=== PATIENT | male | born 1950 | race Caucasian/White ===

== ENCOUNTER → 2017-07-12 14:15 | Outpatient (CLI) | payer OTHER, SELFPAY | PROVIDERS: PCP Family Medicine; Visit Provider Family Medicine | DX: R97.20 Elevated prostate specific antigen [PSA] (principal) | CPT/HCPCS: 36415; 84153 ==

== ENCOUNTER → 2017-09-23 09:20 | Outpatient (CLI) | payer MEDICARE, OTHER, SELFPAY ==
[2017-09-23 10:54] LABS: BUN Creatinine Ratio 17.5 (6-22); Blood Urea Nitrogen 14 mg/dL (9-20); Estimated Glomerular Filt Rate > 60.0 mL/min (>60)
== END ==
PROVIDERS: PCP Family Medicine; Visit Provider Urology
DX: C61 Malignant neoplasm of prostate (principal)
CPT/HCPCS: 36415; 82565; 84520

== ENCOUNTER → 2017-09-28 09:49 | Outpatient (CLI) | payer MEDICARE, OTHER, SELFPAY ==
--- NOTE | 2017-09-28 | DI.CT.S_ITS ---
PROCEDURE: CT CHEST ABD PEL W CON INDICATIONS: PROSTATE CANCER TECHNIQUE: After the administration of intravenous contrast, 5 mm thick sections acquired from the lung apices to the symphysis. 5 mm coronal and sagittal reformats were performed, with additional 7 mm MIP reformats through the lungs. For radiation dose reduction, the following was used: automated exposure control, adjustment of mA and/or kV according to patient size. COMPARISON: None. FINDINGS: Image quality: Excellent. CHEST: Lungs and pleura: No acute airspace opacities. No pleural effusions or pneumothorax. Central and peripheral airways appear patent and normal in caliber. Mediastinum: Heart size is normal. No pericardial effusion. No mediastinal or hilar adenopathy by size criteria. Thoracic aorta and central pulmonary arteries are normal in size. Esophagus is normal in caliber. No hiatal hernia. Chest wall: No axillary or supraclavicular adenopathy by size criteria. Thyroid gland appears normal. ABDOMEN: Solid organs: Liver is normal in size and enhancement. Gallbladder appears normal. Biliary system is non dilated. Pancreas enhances normally. Spleen is normal in size and enhancement. No adrenal nodules. Kidneys demonstrate normal size and enhancement, without hydronephrosis. Peritoneum and bowel: Bowel loops demonstrate normal wall thickness and caliber. No free fluid or air. Nodes and vessels: No retroperitoneal or mesenteric adenopathy by size criteria. Aorta and inferior vena cava are normal in size. Miscellaneous: No ventral hernias. PELVIS: Genitourinary: Bladder wall thickness is normal. Miscellaneous: No inguinal hernias or adenopathy. Bones: No suspicious bony lesions. No vertebral body compression fractures. IMPRESSION: No evidence of metastatic disease related to the clinically reported prostate carcinoma. The prostate gland appears normal in size and morphology. Dictated by: Delmer Jacques M.D. on 09/28/2017 at 12:21 Approved by: Delmer Jacques M.D. on 09/28/2017 at 12:22
--- NOTE | 2017-09-28 | DI.NM.S_ITS ---
PROCEDURE: NM BONE SCAN WHOLE BODY RADIOPHARMACEUTICAL: 22.50 mCi Tc-99m MDP IV. INDICATIONS: PROSTATE CANCER TECHNIQUE: Delayed whole-body scintigrams were obtained approximately 3-4 hours after intravenous injection of radiotracer. Anterior and posterior views were acquired from vertex to feet. Additional left and right oblique views of the pelvis were obtained. COMPARISON: [facility], CT, CT CHEST ABD PEL W CON, 09/28/2017, 10:42. FINDINGS: Radiotracer uptake noted in the lower cervical spine shoulders bilaterally, the sternoclavicular joints bilaterally, the left costal sternal joint, the wrists bilaterally, the knees bilaterally and the left ankle compatible with osteoarthritis. There is a focus of increased radiotracer uptake in the posterior left 12th rib concerning for metastatic lesion. No abnormal soft tissue activity. Activity in the kidneys is normal and symmetric. IMPRESSION: Focus of increased T2 signal in the posterior left 12th rib concerning for a small solitary metastatic lesion. Dictated by: Lucia Granado MD, PhD on 09/28/2017 at 15:06 Approved by: Lucia Granado MD, PhD on 09/28/2017 at 15:14
== END ==
PROVIDERS: PCP Family Medicine; Visit Provider Urology
DX: C61 Malignant neoplasm of prostate (principal)
CPT/HCPCS: 71260; 74177; 78306; A9503; Q9967

== ENCOUNTER → 2017-10-05 09:10 | Oncology outpatient (ONC) | payer MEDICARE, OTHER, SELFPAY ==
[2017-10-05 09:46] VITALS: BP 133/82; PULSE 77; RESP 16; TEMP 36.5; O2SAT 94
--- NOTE | 2017-10-05 10:46 | P.CONONC_ITS ---
History of Present Illness - Data of Consult Consult date: 10/05/17 Requesting Physician: Dr. Sarah Herring Primary Care Provider: Kai Mckinney MD - Consult Narrative Reason for consult: Prostate cancer Narrative: Wilman Hardy is a 67 year old male who is referred for further evaluation of a newly diagnosed prostate cancer. He reports that he had a screening PSA that was 6.45 in February of 2017. On repeat in June it was 6.23 and he was referred to a urologist. He had a BM nodule felt on the left side of the prostate and underwent a biopsy on September 13. He was found to have adenocarcinoma involving the left side of the prostate. [place] score was 4+ 5 equals 9. He underwent a staging evaluation with a CT scan that did not show any evidence of adenopathy. He had a bone scan that showed some uptake in the left posterior 12th rib. The patient reports that he did have a history of trauma on the left side of his chest several years ago. He denies any urinary symptoms. He has had nocturia x1 for many years and this has been stable. He denies any difficulty emptying the bladder. He does have some frequent urination. He notes that he has not had sexual function for the last several years. He does have some chronic pain in the back for which he has had several surgeries. He also has been having some hip pain bilaterally over the last year too. He does exercise regularly and swim but has difficulty walking long distances particularly on hills. CC: Wilman Diaz MD Patient reports pain?: Yes - Pain Details Pain location: Back in hips Pain Frequency: Frequent Pain Description: Aching Pain referral/management: Self-management Home Medications and Allergies Home Medications Medication Instructions Recorded Confirmed Type cyclobenzaprine 10 mg PO TID PRN #90 tab 03/22/17 10/05/17 Rx hydrocodone-acetaminophen 1 tab PO Q DAY PRN PRN #10 tab 03/22/17 10/05/17 Rx lisinopril 10 mg PO BID #180 tab 03/22/17 10/05/17 Rx aspirin 81 mg PO DAILY 10/05/17 10/05/17 History calcium carbonate [Calcium 500] 500 mg PO QAM 10/05/17 10/05/17 History multivitamin 1 tab PO DAILY 10/05/17 10/05/17 History sildenafil (antihypertensive) 20 mg PO QDAYP PRN 10/05/17 10/05/17 History Allergies Allergy/AdvReac Type Severity Reaction Status Date / Time No Known Drug Allergies Allergy Verified 10/05/17 09:36 Medical History - Medical, Surgical, Family History Medical History: Medical History (Last Reviewed 10/05/17 @ 10:46 by Wilman Diaz MD) Hip pain Onset Date: 2016 Chronic back pain Onset Date: 1989 Hearing loss Onset Date: 2011 Herpes Onset Date: 1975 Hypertension Onset Date: 1997 Recurrent sinusitis Onset Date: Sleep apnea Onset Date: 2011 Surgical History: Surgical History (Last Reviewed 10/05/17 @ 10:46 by Wilman Diaz MD) History of back surgery Onset Date: 1994 Hx of laminectomy Onset Date: 2007 Family History: Family History Brother Age: 67 Hypertension High cholesterol Brother Age: 62 Hypertension Father Cancer Mother Multiple sclerosis - Social History Smoking Status: Former smoker Alcohol Intake: current Alcohol Intake Frequency: 0-2 drinks per day Household Members: spouse service: Yes (I does experience with [employer].) Current Occupational Status: retired Review of Systems All systems PM: reviewed and no additional remarkable complaints except as stated (He does use hearing aids. He does have chronic hip and back pain as described above. He has been using ibuprofen and rare hydrocodone or muscle relaxant.) Exam Vital signs: Last Vital Signs Temp 97.7 F 10/05/17 09:46 Pulse 77 10/05/17 09:46 Resp 16 10/05/17 09:46 BP 133/82 H 10/05/17 09:46 Pulse Ox 94 10/05/17 09:46 - Constitutional positive no acute distress, positive obese - Routine HEENT Exam Head: Present: normocephalic, atraumatic Eye: Present: EOMI, PERRL. Absent: conjunctival icterus, scleral injection ENT: Present: mucous membranes moist, dentition normal, external ear normal - Routine Neck Exam Present: supple. Absent: lymphadenopathy, thyromegaly - Routine Chest/Breast/Axilla Exam Chest wall exam standard: Absent: tenderness Axillae: Absent: lymphadenopathy - Routine Respiratory Exam Present: Clear to auscultation bilaterally. Absent: rales, wheezes - Routine Cardiovascular Exam Present: RRR, S1, S2. Absent: murmur - Routine Abdominal Exam Present: soft, normoactive bowel sounds. Absent: tenderness, organomegaly, mass Palpation/Percussion: Absent: hepatomegaly, splenomegaly - Routine Extremities Exam Present: pulses intact. Absent: cyanosis, clubbing, edema - Routine Back/Spine Exam Back/Spine: Absent: CVA tenderness, paraspinal tenderness, vertebral tenderness - Routine Skin Exam Present: intact, dry Comments: He does have some seborrheic keratoses on the shoulders. - Routine Neurological Exam Present: alert, oriented X3 He does use hearing aids. - Routine Psychiatric Exam Present: normal affect, normal thought process Results - Imaging CT scan - abdomen: image reviewed Additional studies: A bone scan was reviewed Assessment and Plan (1) Prostate cancer Problem details: Newly diagnosed with [place] 9 prostate cancer with a PSA of 6.2. His bone scan suggest some uptake in the left posterior 12th rib but he does have a history of trauma to that area and I think that this is unlikely to represent true metastasis. His urologist would favor a nonsurgical approach for definitive therapy according to her note. I described hormone therapy with Lupron and Casodex. This is generally given for several months prior to definitive radiation therapy. The Lupron is given as an injection every 3 months. Casodex is taken orally daily. I explained that clinical trials have looked at varying lengths of therapy for hormone suppression in locally advanced disease. Generally, longer therapy is associated with a better outcome and that would usually recommend treatment for 2-3 years. Side effects of hormone therapy including hot flashes and night sweats risk for loss of muscle mass and increased body found, risk for osteopenia or osteoporosis, risk for increased cardiovascular events reviewed. A few patients can also developed some breast swelling or tenderness on Casodex. He already has had loss of sexual function to this would not be expected to change. He had questions regarding prognosis for prostate cancer. High risk prostate cancer treated with hormone therapy and radiation therapy had shown 5 year mortality rates of about 10% with about 25% risk of distant metastasis. He also had questions regarding the timing of therapy. He reports that his daughter is currently . He would prefer to delay therapy until after the of a grandchild. I explained that once she was on hormone therapy, some delay in starting of radiation therapy would be expected. This would generally be in the range of several months. He also had questions regarding cost of therapy. He will meet with the director social service regarding that. He had questions regarding role of a 2nd opinion and I did offer make a referral but he would prefer to wait. We will make referral to Radiation Oncology. I did give him a drug information regarding Lupron and Casodex. He will return to clinic here after his radiation therapy appointment and hopefully at that time will be able to make a more definitive treatment plan. Current visit: Yes Status: Acute
--- NOTE | 2017-10-05 13:12 | ONC.NAV ---
Description: New Pt Intro Activity: Met with pt to introduce myself as the Pt Aakash/LICENSED SALES ASSISTANT, offer services card, and assist with pt's questions re: insurance and financial concerns. Pt was recently diagnosed with advanced prostate cancer. He states that he moved to [place] about 1-year ago, is and has good social/emotional support. His concerns today centered around care team communication and whether or not he will have a large out of pocket cost for his medications and care. LICENSED SALES ASSISTANT explained that the Oncologist will now be the main provider overseeing his care, and will communicate with all other involved providers as part of continuity of care (i.e, radiation oncology). He had questions as to whether his insurance policies would cover most of the costs, and how we would find this out. LICENSED SALES ASSISTANT agreed to call his insurance and clarify his plan type. *Called pt's [employer] insurance, and determined it to be a supplemental plan to his straight Medicare. Called pt to relay this information, and that he should not have any out of pocket for his care. He had no further questions at this time. Plan: Pt will f/u with [facility] after he has been seen by radiation oncology.
== END ==
LOC: ONC 09:21
PROVIDERS: PCP Family Medicine
DX: C61 Malignant neoplasm of prostate (principal); Z87.891 Personal history of nicotine dependence
CPT/HCPCS: 99205; 99215

== ENCOUNTER → 2018-02-02 14:46 | Outpatient (CLI) | payer MEDICARE, OTHER, SELFPAY ==
[2018-02-02 15:40] LABS: Alanine Aminotransferase 62 IU/L (21-72); Albumin 4.3 g/dL (3.5-5.0); Albumin Globulin Ratio 1.8 (1.0-2.8); Alkaline Phosphatase 65 U/L (38-126); Aspartate Aminotransferase 39 IU/L (17-59); Bilirubin Total 0.4 mg/dL (0.2-1.3); Bilirubin Unconjugated 0.3 mg/dL (0.0-1.1); Globulin 2.4 g/dL (1.7-4.1); HEMOLYSIS < 15 (0-50); Total Protein 6.7 g/dL (6.3-8.2)
[2018-02-02 15:53] LABS: Vitamin D 25 Hydroxy (D3) 26.4 ng/mL (30.0-100.0)
== END ==
PROVIDERS: PCP Student in an Organized Health Care Education/Training Program; Visit Provider Student in an Organized Health Care Education/Training Program
DX: E55.9 Vitamin D deficiency, unspecified (principal); C61 Malignant neoplasm of prostate
CPT/HCPCS: 36415; 80076; 82306

== ENCOUNTER → 2018-05-04 12:18 | Outpatient (CLI) | payer MEDICARE, OTHER, SELFPAY ==
[2018-05-04 16:46] LABS: Prostate Specific Antigen 0.737 ng/mL (0.10-4.00)
== END ==
PROVIDERS: PCP Student in an Organized Health Care Education/Training Program; Visit Provider Urology
DX: C61 Malignant neoplasm of prostate (principal)
CPT/HCPCS: 36415; 84153

== ENCOUNTER → 2018-05-31 08:54 | Outpatient (CLI) | payer MEDICARE, OTHER, SELFPAY ==
--- NOTE | 2018-05-31 08:56 | DI.MRI.S_ITS ---
PROCEDURE: MR LUMBAR SPINE WO CON INDICATIONS: Low back pain with lower extremity weakness TECHNIQUE: Noncontrast sagittal T1 spin echo and T2 fast echo, sagittal STIR, axial T1 and T2 fast spin echo through the lumbar spine. In cases with scoliosis, additional coronal T2 fast spin echo may be performed. COMPARISON: Outside Facility, RG, MRI L-SPINE W/WO CONTRAST, 08/30/2014, 15:22. Outside Facility, [facility], MRI L-SPINE W/O CONTRAST, 11/17/2010, 12:49. FINDINGS: Image quality: Excellent. Alignment and Curvature: Straightening of the normal lumbar lordosis Bone Marrow: Post surgical changes related to prior posterior decompression at the L4 level. Multilevel degenerative endplate sclerosis and spurring. Diffuse facet arthropathy. Chronic osseous fusion of the L4 and L5 vertebral bodies. Possible partial chronic osseous fusion of the L5-S1 vertebral bodies as well. Prominent marrow fat signal intensity is seen in the sacrum Spinal Cord: Conus medullaris terminates at the L1-L2 level. Visualized cord demonstrates normal signal and size. Paraspinous Soft Tissues: No paravertebral masses. At T12-L1: Broad-based posterior disc bulge mild facet arthropathy in addition a dorsal epidural lipomatosis. Moderate narrowing of the lateral recesses although symmetric appearance, and associated compression of both descending L1 nerve roots. No definite interval change. Bilateral foraminal narrowing, grossly unchanged L1-L2: Broad-based posterior disc bulge bilateral facet arthropathy. Dorsal epidural lipomatosis. There is mild canal narrowing and compression of the cauda equina. Partial effacement of both lateral recesses, with mild compression of the descending nerve roots. Mild left and right foraminal narrowing, unchanged L2-L3: Broad-based posterior disc bulge and bilateral facet arthropathy, mild asymmetric, right greater than left. There is dorsal epidural lipomatosis and mild canal narrowing. Asymmetric narrowing of the right lateral recess with possible mild compression of the descending nerve root. Mild left and moderate foraminal narrowing. L3-L4: Broad-based posterior disc bulge bilateral facet arthropathy. No high-grade canal stenosis. Asymmetric mild partial effacement of the right lateral recess with possible compression of the descending nerve root however grossly unchanged appearance. Moderate left and right foraminal stenosis with possible mild compression of both nerve roots. The appearance is unchanged. L4-L5: No definite canal stenosis. No lateral recess narrowing. Mild bilateral foraminal narrowing L5-S1: No high-grade canal stenosis. Broad-based posterior disc bulge bilateral facet arthropathy. Lateral recesses appear grossly patent. Moderate narrowing of the right neural foramen with associated compression of the exiting nerve root. There is also severe left foraminal stenosis with associated compression of the nerve root. No interval change IMPRESSION: Overall, no interval change since 08/30/14 with postsurgical sequela related to posterior decompression at the L4 level. Dictated by: Adolfo James M.D. on 05/31/2018 at 10:54 Approved by: Adolfo James M.D. on 05/31/2018 at 11:06
== END ==
PROVIDERS: PCP Student in an Organized Health Care Education/Training Program; Visit Provider Student in an Organized Health Care Education/Training Program
DX: M47.816 Spondylosis without myelopathy or radiculopathy, lumbar region (principal); M47.817 Spondylosis without myelopathy or radiculopathy, lumbosacral region; M51.26 Other intervertebral disc displacement, lumbar region; M51.27 Other intervertebral disc displacement, lumbosacral region; M48.061 Spinal stenosis, lumbar region without neurogenic claudication; M48.07 Spinal stenosis, lumbosacral region; G89.29 Other chronic pain; R29.898 Other symptoms and signs involving the musculoskeletal system
CPT/HCPCS: 72148

== ENCOUNTER 2018-08-16 10:15 | Outpatient (RCR) | payer MEDICARE, OTHER, SELFPAY ==
--- NOTE | 2018-06-22 14:55 | PT.OTN ---
Current Diagnoses Other chronic pain (06/22/18) Low back pain (06/22/18) Physical Therapy Treatment Note PT-OP-A Visit Information Start: 06/22/18 08:52 Freq: Status: Active Protocol: Document 06/22/18 08:53 BS (Rec: 06/22/18 09:02 BS [email or web address]) Out-Patient Physical Therapy Visit Information Visit Information Visit Type Initial Evaluation Visit Start Time 08:15 Visit Stop Time 08:50 Total Visit Minutes 35 Visit Number 1 Number of SPRINKLER WORKER Visits 0 Evaluation Information Evaluation Date 06/22/18 PT-OP-B Current Condition Start: 06/22/18 08:52 Freq: Status: Active Protocol: Document 06/22/18 08:53 BS (Rec: 06/22/18 09:02 BS [email or web address]) Current Condition History of Current Condition Onset Date chronic Current Complaints Constant LBP History of Current Condition Pt complains of chronic and constant low back pain that increases with lifting heavy objects, prolonged sitting/ standing, exercise, mopping, vacuuming, and especially with walking uphill. Pt denies radicular symptoms, but reports he has had sciatica in the past. He states that he has had low back pain for 30+ years and that he has has arthritis, stenosis, and a herniated disc. Pt has seen many providers over the years to manage his pain, including massage therapy, physical therapy, acupuncture, chiropractice care, and he has had a lower lumbar fusion. Pt reports that he enjoys walking but that his low back pain significantly increases after about 2 blocks and that he notices more weakness in his legs. Pt states he is currently being treated for aggressive prostate cancer, which has affected his B LE strength. His plan to manage low back pain at this point is through combination of physical therapy aquatics, medicare compliance auditor, and acupuncture. Prior Treatments and Tests massage therapy, acupuncture, physical therapy, chiropractic . lumbar spine MRI: foraminal stenosis L1-L5, posterior disc herniation L2-3. Future Testing and Treatments Planned Pt plans to manage low back pain at this point through combination of physical therapy aquatics, medicare compliance auditor, and acupuncture. He prefers not to be land based exercise. Treatment Goals Patient/Caregiver Goals figure out a program I can do in the pool to strengthen my core, legs, and work on flexibility Prior Functional Status Baseline Function- ADL's Independent Baseline Function- Mobility Independent Baseline Function- Gait Independent without AD Baseline Function- Work/School Pt is retired, worked a desk job for many years. Baseline Function- Recreation/Hobbies Independent Baseline Function- Other Independent Current Functional Impairments (Reported) Functional Limitations- ADL's Low back pain with ifting objects, mopping, vacuuming, sweeping, prolonged standing/ sitting, and walking. Functional Limitations- Mobility/Gait Pt reports he used to be able to walk for an hour but is sometimes limited to 2 blocks now due to increased LBP. Functional Limitations- Recreation/ Pt enjoys go on walks and Hobbies exercising in the pool, these activities have been limited due to LBP. Personal Factors Other Personal Factors That May Effect chronic LBP, lumbar fusion, Therapy/Recovery arthritis PT-OP-C Subjective Start: 06/22/18 08:52 Freq: Status: Active Protocol: Document 06/22/18 08:53 BS (Rec: 06/22/18 12:18 BS [email or web address]) OP-PT Subjective Patient Comments Patient Comments I do not want to do land based physical therapy, I want to get in the pool and refine my current exercise plan to make sure I am doing things correctly Patient Questionnaires Oswestry Low Back Index Oswestry Score 20 Oswestry Impairment 40 to 59% Impaired (Score 40- 59) PT-OP-F Manual Assessment Start: 06/22/18 13:29 Freq: Status: Active Protocol: Document 06/22/18 08:53 BS (Rec: 06/22/18 13:30 BS [email or web address]) Manual Assessments Soft Tissue Assessment Soft Tissue Mobility Assessment Hypertonicity to B lumbar paraspinals, no tenderenss noted Joint Mobility Assessment Joint Mobility Assessment Stiffness and hypomibilty from L1-L5 with central and unilateral PAs. Pt denied pain with joint mobility assessment. PT-OP-G Mobility & Gait Start: 06/22/18 08:52 Freq: Status: Active Protocol: Document 06/22/18 08:53 BS (Rec: 06/22/18 13:28 BS [email or web address]) OP Mobility Evaluation Bed Mobility Rolling Independent Supine to and from Sit Independent, use of B UEs Transfers Sit to Stand Independent, use of B UEs to push up from chair OP Gait Assessment Gait Gait Assistance Required: Independent Able to Maintain Weight Bearing Status Yes During Gait Gait Deviations General Gait Pattern Within Normal Limits Flexed Trunk Comments Gait Comments slight trunk flexion with ambulation in clinic. PT-OP-J Posture/Palpation/Skin Start: 06/22/18 08:52 Freq: Status: Active Protocol: Document 06/22/18 08:53 BS (Rec: 06/22/18 13:28 BS [email or web address]) Posture Evaluation Position Sitting Evaluation View Posterior Head/C-Spine Posture Forward Head Shoulder Posture (R) Rounded (R) Forward Comments Posture Comments stands with slight trunk flexion. Palpation Assessment Location One Palpation Location Lumbar Parapsinals Palpation Findings Soft Tissue Tightness Palpation Details Hypertonicity and tightness with palpation to B paraspinals, no tenderness noted. PT-OP-K Range of Motion Start: 06/22/18 08:52 Freq: Status: Active Protocol: Document 06/22/18 08:53 BS (Rec: 06/22/18 12:18 BS [email or web address]) Lumbar Spine Range of Motion Lumbar Spine Active Testing Position Standing Flexion 60 Extension 20 Comments Moderatly limited in bilateral rotation and sidebending. Pt reports stiffness with all lumbar AROM and some discomfort in low back. Hip Goniometric Range of Motion Hip Measured in Degrees Right Passive Hip ROM WFL No Testing Position Supine Flexion w/Knee Flexed 85 Straight Leg Raise 75 Left Passive Hip ROM WFL No Testing Position Supine Flexion w/Knee Flexed 88 Straight Leg Raise 60 Hip ROM Limitations Comments Low back pain reproduced with PROM hip flexion bilaterally. PT-OP-L Special Tests Start: 06/22/18 08:52 Freq: Status: Active Protocol: Document 06/22/18 08:53 BS (Rec: 06/22/18 12:18 BS [email or web address]) Special Tests Lumbar Spine Special Tests Slump Test Results Negative Straight Leg Raise Test Results + Prone Knee Flexion Test Results + Comments I can feel my vertebrae moving on eachother PT-OP-M Strength Start: 06/22/18 08:52 Freq: Status: Active Protocol: Document 06/22/18 08:53 BS (Rec: 06/22/18 12:18 BS [email or web address]) Hip Strength Hip Manual Muscle Testing Right Flexion (L2) 4+ Good+ Extension (S1) 4 Good Abduction 5 Normal External Rotation 5 Normal Internal Rotation 5 Normal Comments No pain during MMT Left Flexion (L2) 4+ Good+ Extension (S1) 4 Good Abduction 5 Normal External Rotation 5 Normal Internal Rotation 5 Normal Comments No pain during MMT Knee Strength Knee Manual Muscle Testing Right Flexion (S2) 5 Normal Extension (L3) 5 Normal Comments No pain during MMT Left Flexion (S2) 5 Normal Extension (L3) 5 Normal Comments No pain during MMT Ankle/Foot Strength Ankle and Foot Manual Muscle Testing Right Dorsiflexion (L4) 5 Normal Plantarflexion (S1) 5 Normal Comments No pain during MMT Left Dorsiflexion (L4) 5 Normal Plantarflexion (S1) 5 Normal Comments No pain during MMT PT-OP-T Assessment and Plan Start: 06/22/18 08:52 Freq: Status: Active Protocol: Document 06/22/18 08:53 BS (Rec: 06/22/18 12:18 BS [email or web address]) Physical Therapy Assessment Rehab Potential Rehabilitation Potential Fair Evaluation Complexity Number of Personal Factors/Comorbidities 1-2 Number of Body Systems Impaired 1-2 Clinical Presentation at Evaluation Stable Impairments Impairments Activity Tolerance Functional Activities Functional Mobility Pain ROM Soft Tissue Mobility Strength Other Concerns Barriers to Rehabilitation chronic LBP, arthritis, aggressive form of prostate cancer per pt. Goals Two Impairment weakness Short Term Goal (STG) Pt to report reduction in pain intensity with less than 3/10 so that he is able to complete activities of daily living. STG Duration 6 weeks Slab Worker Goal (LTG) Bilateral hip extension and flexion to improve to at least 4+/5 to increase pt's ability to perform ADLs without limitations due to weakness. LTG Duration 10-12 weeks One Impairment strength Short Term Goal (STG) Pt to be able consistently walk greater than 2 blocks before experiencing low back pain or weakness in bilateral low extremities. STG Duration 8 weeks Assisted Goal (LTG) Pt to be independent with an aquatic program for lumbar stabilization and B LE strengthening and flexibility so that he can continue to engage in recreational exercise that does not exacerbate his chronic low back pain. LTG Duration 10-12 weeks Assessment Summary Assessment Wilman is a 67 year old male who presents with chronic and constant low back pain that has limited his ability to perform his usual activities of daily living. He reports increase in pain with bending, lifting, mopping, vacuuming, prolonged sitting/standing, and walking. Pt has had a previous lumbar fusion and decompression surgery. Wilman is not open to land based therapy and thus aquatic therapy will be used to strengthen his lower extremities and lumbar stabilizers as well as improve his flexibility. Pt benefits from skilled physical therapy as described above to reduce low back pain and promote independence with a safe exercise program for continued management of his symptoms following discharge. Physical Therapy Plan Frequency and Duration Frequency of Treatment 2-3x/week Duration of Treatment 10-12 weeks Plan of Care Start Date 06/22/18 Plan of Care End Date 09/14/18 Therapeutic Interventions Therapeutic Interventions Aquatic Therapy Home Exercise Program Joint Mobilizations Manual Therapy Patient/Caregiver Education Soft Tissue Mobilization Taping Therapeutic Activities Therapeutic Exercises Next Visit Focus/Plan Next Note Type Treatment Note Next Visit Plan Begin aquatic therapy for lumbar stabilization and B LE strenthening, flexibility.
--- NOTE | 2018-06-22 14:57 | PT.OPPOC ---
Current Diagnoses Other chronic pain (06/22/18) Low back pain (06/22/18) Provider Visit Care Team Role Provider Type Dc Summers MD Attending Provider Physician Primary Care Provider Specialty: Internal Medicine Address: [address] [place] [address], [id number] Email: Plan Of Care PT-OP-T Assessment and Plan Start: 06/22/18 08:52 Freq: Status: Active Protocol: Document 06/22/18 08:53 BS (Rec: 06/22/18 12:18 BS [email or web address]) Physical Therapy Assessment Rehab Potential Rehabilitation Potential Fair Evaluation Complexity Number of Personal Factors/Comorbidities 1-2 Number of Body Systems Impaired 1-2 Clinical Presentation at Evaluation Stable Impairments Impairments Activity Tolerance Functional Activities Functional Mobility Pain ROM Soft Tissue Mobility Strength Other Concerns Barriers to Rehabilitation chronic LBP, arthritis, aggressive form of prostate cancer per pt. Goals Two Impairment weakness Short Term Goal (STG) Pt to report reduction in pain intensity with less than 3/10 so that he is able to complete activities of daily living. STG Duration 6 weeks Service Station Console Operator Goal (LTG) Bilateral hip extension and flexion to improve to at least 4+/5 to increase pt's ability to perform ADLs without limitations due to weakness. LTG Duration 10-12 weeks One Impairment strength Short Term Goal (STG) Pt to be able consistently walk greater than 2 blocks before experiencing low back pain or weakness in bilateral low extremities. STG Duration 8 weeks Service Station Console Operator Goal (LTG) Pt to be independent with an aquatic program for lumbar stabilization and B LE strengthening and flexibility so that he can continue to engage in recreational exercise that does not exacerbate his chronic low back pain. LTG Duration 10-12 weeks Assessment Summary Assessment Wilman is a 67 year old male who presents with chronic and constant low back pain that has limited his ability to perform his usual activities of daily living. He reports increase in pain with bending, lifting, mopping, vacuuming, prolonged sitting/standing, and walking. Pt has had a previous lumbar fusion and decompression surgery. Wilman is not open to land based therapy and thus aquatic therapy will be used to strengthen his lower extremities and lumbar stabilizers as well as improve his flexibility. Pt benefits from skilled physical therapy as described above to reduce low back pain and promote independence with a safe exercise program for continued management of his symptoms following discharge. Physical Therapy Plan Frequency and Duration Frequency of Treatment 2-3x/week Duration of Treatment 10-12 weeks Plan of Care Start Date 06/22/18 Plan of Care End Date 09/14/18 Therapeutic Interventions Therapeutic Interventions Aquatic Therapy Home Exercise Program Joint Mobilizations Manual Therapy Patient/Caregiver Education Soft Tissue Mobilization Taping Therapeutic Activities Therapeutic Exercises Next Visit Focus/Plan Next Note Type Treatment Note Next Visit Plan Begin aquatic therapy for lumbar stabilization and B LE strenthening, flexibility. Plan of Care Dates Plan of Care Start Date 06/22/18 Plan of Care End Date 09/14/18 Please Sign and Return: I have reviewed this Plan of Care and certify that the skilled therapy services above are required to meet the patient?s needs. Physician Signature Date Printed Name and Credentials Clinical Instructor Signature Printed Name and Credentials
--- NOTE | 2018-06-26 17:30 | PT.OTN ---
Current Diagnoses Other chronic pain (06/26/18) Low back pain (06/26/18) Physical Therapy Treatment Note PT-OP-A Visit Information Start: 06/22/18 08:52 Freq: Status: Active Protocol: Document 06/26/18 17:21 SAK (Rec: 06/26/18 17:30 SAK [id number]) Out-Patient Physical Therapy Visit Information Visit Information Visit Type Aquatic Treatment Note Visit Start Time 13:15 Visit Stop Time 14:00 Total Visit Minutes 45 Visit Number 2 Number of CARDIOLOGY PHYSICIAN ASSISTANT Visits 0 Evaluation Information Evaluation Date 06/22/18 PT-OP-B Current Condition Start: 06/22/18 08:52 Freq: Status: Active Protocol: Document 06/22/18 08:53 BS (Rec: 06/22/18 09:02 BS [email or web address]) Current Condition History of Current Condition Onset Date chronic Current Complaints Constant LBP History of Current Condition Pt complains of chronic and constant low back pain that increases with lifting heavy objects, prolonged sitting/ standing, exercise, mopping, vacuuming, and especially with walking uphill. Pt denies radicular symptoms, but reports he has had sciatica in the past. He states that he has had low back pain for 30+ years and that he has has arthritis, stenosis, and a herniated disc. Pt has seen many providers over the years to manage his pain, including massage therapy, physical therapy, acupuncture, chiropractice care, and he has had a lower lumbar fusion. Pt reports that he enjoys walking but that his low back pain significantly increases after about 2 blocks and that he notices more weakness in his legs. Pt states he is currently being treated for aggressive prostate cancer, which has affected his B LE strength. His plan to manage low back pain at this point is through combination of physical therapy aquatics, child care lead teacher, and acupuncture. Prior Treatments and Tests massage therapy, acupuncture, physical therapy, chiropractic . lumbar spine MRI: foraminal stenosis L1-L5, posterior disc herniation L2-3. Future Testing and Treatments Planned Pt plans to manage low back pain at this point through combination of physical therapy aquatics, child care lead teacher, and acupuncture. He prefers not to be land based exercise. Treatment Goals Patient/Caregiver Goals figure out a program I can do in the pool to strengthen my core, legs, and work on flexibility Prior Functional Status Baseline Function- ADL's Independent Baseline Function- Mobility Independent Baseline Function- Gait Independent without AD Baseline Function- Work/School Pt is retired, worked a desk job for many years. Baseline Function- Recreation/Hobbies Independent Baseline Function- Other Independent Current Functional Impairments (Reported) Functional Limitations- ADL's Low back pain with ifting objects, mopping, vacuuming, sweeping, prolonged standing/ sitting, and walking. Functional Limitations- Mobility/Gait Pt reports he used to be able to walk for an hour but is sometimes limited to 2 blocks now due to increased LBP. Functional Limitations- Recreation/ Pt enjoys go on walks and Hobbies exercising in the pool, these activities have been limited due to LBP. Personal Factors Other Personal Factors That May Effect chronic LBP, lumbar fusion, Therapy/Recovery arthritis PT-OP-C Subjective Start: 06/22/18 08:52 Freq: Status: Active Protocol: Document 06/26/18 17:21 SAK (Rec: 06/26/18 17:30 SAK [id number]) OP-PT Subjective Patient Comments Patient Comments Patient states he is receptive to education regarding aquatic exercise and ways he may need to modify the exercises he is currently doing in the pool for more benefit. PT-OP-F Manual Assessment Start: 06/22/18 13:29 Freq: Status: Active Protocol: Document 06/22/18 08:53 BS (Rec: 06/22/18 13:30 BS [email or web address]) Manual Assessments Soft Tissue Assessment Soft Tissue Mobility Assessment Hypertonicity to B lumbar paraspinals, no tenderenss noted Joint Mobility Assessment Joint Mobility Assessment Stiffness and hypomibilty from L1-L5 with central and unilateral PAs. Pt denied pain with joint mobility assessment. PT-OP-G Mobility & Gait Start: 06/22/18 08:52 Freq: Status: Active Protocol: Document 06/22/18 08:53 BS (Rec: 06/22/18 13:28 BS [email or web address]) OP Mobility Evaluation Bed Mobility Rolling Independent Supine to and from Sit Independent, use of B UEs Transfers Sit to Stand Independent, use of B UEs to push up from chair OP Gait Assessment Gait Gait Assistance Required: Independent Able to Maintain Weight Bearing Status Yes During Gait Gait Deviations General Gait Pattern Within Normal Limits Flexed Trunk Comments Gait Comments slight trunk flexion with ambulation in clinic. PT-OP-J Posture/Palpation/Skin Start: 06/22/18 08:52 Freq: Status: Active Protocol: Document 06/22/18 08:53 BS (Rec: 06/22/18 13:28 BS [email or web address]) Posture Evaluation Position Sitting Evaluation View Posterior Head/C-Spine Posture Forward Head Shoulder Posture (R) Rounded (R) Forward Comments Posture Comments stands with slight trunk flexion. Palpation Assessment Location One Palpation Location Lumbar Parapsinals Palpation Findings Soft Tissue Tightness Palpation Details Hypertonicity and tightness with palpation to B paraspinals, no tenderness noted. PT-OP-K Range of Motion Start: 06/22/18 08:52 Freq: Status: Active Protocol: Document 06/22/18 08:53 BS (Rec: 06/22/18 12:18 BS [email or web address]) Lumbar Spine Range of Motion Lumbar Spine Active Testing Position Standing Flexion 60 Extension 20 Comments Moderatly limited in bilateral rotation and sidebending. Pt reports stiffness with all lumbar AROM and some discomfort in low back. Hip Goniometric Range of Motion Hip Measured in Degrees Right Passive Hip ROM WFL No Testing Position Supine Flexion w/Knee Flexed 85 Straight Leg Raise 75 Left Passive Hip ROM WFL No Testing Position Supine Flexion w/Knee Flexed 88 Straight Leg Raise 60 Hip ROM Limitations Comments Low back pain reproduced with PROM hip flexion bilaterally. PT-OP-L Special Tests Start: 06/22/18 08:52 Freq: Status: Active Protocol: Document 06/22/18 08:53 BS (Rec: 06/22/18 12:18 BS [email or web address]) Special Tests Lumbar Spine Special Tests Slump Test Results Negative Straight Leg Raise Test Results + Prone Knee Flexion Test Results + Comments I can feel my vertebrae moving on eachother PT-OP-M Strength Start: 06/22/18 08:52 Freq: Status: Active Protocol: Document 06/22/18 08:53 BS (Rec: 06/22/18 12:18 BS [email or web address]) Hip Strength Hip Manual Muscle Testing Right Flexion (L2) 4+ Good+ Extension (S1) 4 Good Abduction 5 Normal External Rotation 5 Normal Internal Rotation 5 Normal Comments No pain during MMT Left Flexion (L2) 4+ Good+ Extension (S1) 4 Good Abduction 5 Normal External Rotation 5 Normal Internal Rotation 5 Normal Comments No pain during MMT Knee Strength Knee Manual Muscle Testing Right Flexion (S2) 5 Normal Extension (L3) 5 Normal Comments No pain during MMT Left Flexion (S2) 5 Normal Extension (L3) 5 Normal Comments No pain during MMT Ankle/Foot Strength Ankle and Foot Manual Muscle Testing Right Dorsiflexion (L4) 5 Normal Plantarflexion (S1) 5 Normal Comments No pain during MMT Left Dorsiflexion (L4) 5 Normal Plantarflexion (S1) 5 Normal Comments No pain during MMT PT-OP-S Aquatic Treatment Start: 06/26/18 17:21 Freq: Status: Active Protocol: Document 06/26/18 17:21 [facility] (Rec: 06/26/18 17:30 [facility] [id number]) Aquatics Treatment Pool Entry/Exit Pool Entry/Exit Method Stairs Assistance Independent Lower Extremity Stretches SKTC Reps/Duration 2x hamstring, IT band, adductors, quads, hip flex Equipment Small Noodle Reps/Duration 2x ea Upper Extremity Exercises UE pull downs Body Position Standing Water Level Chest Level Equipment large barbells Reps/Duration 10x [place] Activities [place] Activities Bicycle Bicycle Backwards [place] Running Hip Abduction/Adduction Sit Kicks Other Activities bicycle with barbells held submerged at sides Deep water DLS: trevor and unil pull downs, lateral pendulums, front/back pendulums Equipment large barbells Duration 30 min Comments included 8' of 15:30 intervals of 2 min ea run, short/quick x-country, ab/ad, sit kicks PT-OP-T Assessment and Plan Start: 06/22/18 08:52 Freq: Status: Active Protocol: Document 06/26/18 17:21 [facility] (Rec: 06/26/18 17:30 [facility] [id number]) Physical Therapy Assessment Impairments Impairments Activity Tolerance Functional Activities Functional Mobility Pain ROM Soft Tissue Mobility Strength Other Concerns Barriers to Rehabilitation chronic LBP, arthritis, aggressive form of prostate cancer per pt. Goals Two Impairment weakness Short Term Goal (STG) Pt to report reduction in pain intensity with less than 3/10 so that he is able to complete activities of daily living. STG Duration 6 weeks Blocker Automatic Goal (LTG) Bilateral hip extension and flexion to improve to at least 4+/5 to increase pt's ability to perform ADLs without limitations due to weakness. LTG Duration 10-12 weeks One Impairment strength Short Term Goal (STG) Pt to be able consistently walk greater than 2 blocks before experiencing low back pain or weakness in bilateral low extremities. STG Duration 8 weeks Prison Goal (LTG) Pt to be independent with an aquatic program for lumbar stabilization and B LE strengthening and flexibility so that he can continue to engage in recreational exercise that does not exacerbate his chronic low back pain. LTG Duration 10-12 weeks Assessment Summary Assessment Patient required moderate cues for postural alignment and core stabilization with all aquatic exercises today. Feel he will benefit highly from aquatic physical therapy. Denied increase in pain except with trial aquatic plank Physical Therapy Plan Frequency and Duration Frequency of Treatment 2-3x/week Duration of Treatment 10-12 weeks Plan of Care Start Date 06/22/18 Plan of Care End Date 09/14/18 Therapeutic Interventions Therapeutic Interventions Aquatic Therapy Home Exercise Program Joint Mobilizations Manual Therapy Patient/Caregiver Education Soft Tissue Mobilization Taping Therapeutic Activities Therapeutic Exercises Next Visit Focus/Plan Next Note Type Treatment Note Next Visit Plan Evaluate response to today's aquatic physical therapy session and progress as indicated.
--- NOTE | 2018-07-07 13:50 | PT.OTN ---
Current Diagnoses Other chronic pain (07/07/18) Low back pain (07/07/18) Physical Therapy Treatment Note PT-OP-A Visit Information Start: 06/22/18 08:52 Freq: Status: Active Protocol: Document 07/07/18 10:15 LJ (Rec: 07/07/18 13:50 LJ [id number]) Out-Patient Physical Therapy Visit Information Visit Information Visit Type Aquatic Treatment Note Visit Start Time 10:15 Visit Stop Time 11:00 Total Visit Minutes 45 Visit Number 3 Number of CROWNING HAMMER OPERATOR Visits 1 PT-OP-B Current Condition Start: 06/22/18 08:52 Freq: Status: Active Protocol: Document 06/22/18 08:53 BS (Rec: 06/22/18 09:02 BS [email or web address]) Current Condition History of Current Condition Onset Date chronic Current Complaints Constant LBP History of Current Condition Pt complains of chronic and constant low back pain that increases with lifting heavy objects, prolonged sitting/ standing, exercise, mopping, vacuuming, and especially with walking uphill. Pt denies radicular symptoms, but reports he has had sciatica in the past. He states that he has had low back pain for 30+ years and that he has has arthritis, stenosis, and a herniated disc. Pt has seen many providers over the years to manage his pain, including massage therapy, physical therapy, acupuncture, chiropractice care, and he has had a lower lumbar fusion. Pt reports that he enjoys walking but that his low back pain significantly increases after about 2 blocks and that he notices more weakness in his legs. Pt states he is currently being treated for aggressive prostate cancer, which has affected his B LE strength. His plan to manage low back pain at this point is through combination of physical therapy aquatics, day care home mother, and acupuncture. Prior Treatments and Tests massage therapy, acupuncture, physical therapy, chiropractic . lumbar spine MRI: foraminal stenosis L1-L5, posterior disc herniation L2-3. Future Testing and Treatments Planned Pt plans to manage low back pain at this point through combination of physical therapy aquatics, day care home mother, and acupuncture. He prefers not to be land based exercise. Treatment Goals Patient/Caregiver Goals figure out a program I can do in the pool to strengthen my core, legs, and work on flexibility Prior Functional Status Baseline Function- ADL's Independent Baseline Function- Mobility Independent Baseline Function- Gait Independent without AD Baseline Function- Work/School Pt is retired, worked a desk job for many years. Baseline Function- Recreation/Hobbies Independent Baseline Function- Other Independent Current Functional Impairments (Reported) Functional Limitations- ADL's Low back pain with ifting objects, mopping, vacuuming, sweeping, prolonged standing/ sitting, and walking. Functional Limitations- Mobility/Gait Pt reports he used to be able to walk for an hour but is sometimes limited to 2 blocks now due to increased LBP. Functional Limitations- Recreation/ Pt enjoys go on walks and Hobbies exercising in the pool, these activities have been limited due to LBP. Personal Factors Other Personal Factors That May Effect chronic LBP, lumbar fusion, Therapy/Recovery arthritis PT-OP-C Subjective Start: 06/22/18 08:52 Freq: Status: Active Protocol: Document 07/07/18 10:15 LJ (Rec: 07/07/18 13:50 LJ [id number]) OP-PT Subjective Patient Comments Patient Comments Pt states he is feeling strongerand more confident with his aquatic exercise plan . Is focused on stretching and states stretching puts his back into place. PT-OP-F Manual Assessment Start: 06/22/18 13:29 Freq: Status: Active Protocol: Document 06/22/18 08:53 BS (Rec: 06/22/18 13:30 BS [email or web address]) Manual Assessments Soft Tissue Assessment Soft Tissue Mobility Assessment Hypertonicity to B lumbar paraspinals, no tenderenss noted Joint Mobility Assessment Joint Mobility Assessment Stiffness and hypomibilty from L1-L5 with central and unilateral PAs. Pt denied pain with joint mobility assessment. PT-OP-G Mobility & Gait Start: 06/22/18 08:52 Freq: Status: Active Protocol: Document 06/22/18 08:53 BS (Rec: 06/22/18 13:28 BS [email or web address]) OP Mobility Evaluation Bed Mobility Rolling Independent Supine to and from Sit Independent, use of B UEs Transfers Sit to Stand Independent, use of B UEs to push up from chair OP Gait Assessment Gait Gait Assistance Required: Independent Able to Maintain Weight Bearing Status Yes During Gait Gait Deviations General Gait Pattern Within Normal Limits Flexed Trunk Comments Gait Comments slight trunk flexion with ambulation in clinic. PT-OP-J Posture/Palpation/Skin Start: 06/22/18 08:52 Freq: Status: Active Protocol: Document 06/22/18 08:53 BS (Rec: 06/22/18 13:28 BS [email or web address]) Posture Evaluation Position Sitting Evaluation View Posterior Head/C-Spine Posture Forward Head Shoulder Posture (R) Rounded (R) Forward Comments Posture Comments stands with slight trunk flexion. Palpation Assessment Location One Palpation Location Lumbar Parapsinals Palpation Findings Soft Tissue Tightness Palpation Details Hypertonicity and tightness with palpation to B paraspinals, no tenderness noted. PT-OP-K Range of Motion Start: 06/22/18 08:52 Freq: Status: Active Protocol: Document 06/22/18 08:53 BS (Rec: 06/22/18 12:18 BS [email or web address]) Lumbar Spine Range of Motion Lumbar Spine Active Testing Position Standing Flexion 60 Extension 20 Comments Moderatly limited in bilateral rotation and sidebending. Pt reports stiffness with all lumbar AROM and some discomfort in low back. Hip Goniometric Range of Motion Hip Measured in Degrees Right Passive Hip ROM WFL No Testing Position Supine Flexion w/Knee Flexed 85 Straight Leg Raise 75 Left Passive Hip ROM WFL No Testing Position Supine Flexion w/Knee Flexed 88 Straight Leg Raise 60 Hip ROM Limitations Comments Low back pain reproduced with PROM hip flexion bilaterally. PT-OP-L Special Tests Start: 06/22/18 08:52 Freq: Status: Active Protocol: Document 06/22/18 08:53 BS (Rec: 06/22/18 12:18 BS [email or web address]) Special Tests Lumbar Spine Special Tests Slump Test Results Negative Straight Leg Raise Test Results + Prone Knee Flexion Test Results + Comments I can feel my vertebrae moving on eachother PT-OP-M Strength Start: 06/22/18 08:52 Freq: Status: Active Protocol: Document 06/22/18 08:53 BS (Rec: 06/22/18 12:18 BS [email or web address]) Hip Strength Hip Manual Muscle Testing Right Flexion (L2) 4+ Good+ Extension (S1) 4 Good Abduction 5 Normal External Rotation 5 Normal Internal Rotation 5 Normal Comments No pain during MMT Left Flexion (L2) 4+ Good+ Extension (S1) 4 Good Abduction 5 Normal External Rotation 5 Normal Internal Rotation 5 Normal Comments No pain during MMT Knee Strength Knee Manual Muscle Testing Right Flexion (S2) 5 Normal Extension (L3) 5 Normal Comments No pain during MMT Left Flexion (S2) 5 Normal Extension (L3) 5 Normal Comments No pain during MMT Ankle/Foot Strength Ankle and Foot Manual Muscle Testing Right Dorsiflexion (L4) 5 Normal Plantarflexion (S1) 5 Normal Comments No pain during MMT Left Dorsiflexion (L4) 5 Normal Plantarflexion (S1) 5 Normal Comments No pain during MMT PT-OP-S Aquatic Treatment Start: 06/26/18 17:21 Freq: Status: Active Protocol: Document 07/07/18 10:15 LISA (Rec: 07/07/18 13:50 [email or web address]) Aquatics Treatment Pool Entry/Exit Pool Entry/Exit Method Stairs Assistance Independent Water Walking soldier, lunge walk Water Level Waist Level Level of Assistance Verbal Cues Comments good posture forward, backward, sideways Water Level Chest Level Level of Assistance Verbal Cues Comments cues for recriprocal arms Lower Extremity Exercises single leg squat bilat Water Level Waist Level Reps/Duration 10 each Comments good posture squats on sbottom stair Details hand hold Reps/Duration 10 Comments good posture and muscle activation Lower Extremity Stretches hamstring, IT band, adductors, quads, hip flex Equipment Small Noodle Reps/Duration 2x ea Upper Extremity Exercises UE pull downs Body Position Standing Water Level Chest Level Equipment large barbells Reps/Duration 10x Viola Activities Viola Activities Bicycle Bicycle Backwards Cross Country Running Hip Abduction/Adduction Sit Kicks Other Activities bicycle with barbells held submerged at sides Deep water DLS: trevor and unil pull downs, lateral pendulums, front/back pendulums Equipment large barbells Duration 20 PT-OP-T Assessment and Plan Start: 06/22/18 08:52 Freq: Status: Active Protocol: Document 07/07/18 10:15 LISA (Rec: 07/07/18 13:50 [email or web address]) Physical Therapy Assessment Impairments Impairments Activity Tolerance Functional Activities Functional Mobility Pain ROM Soft Tissue Mobility Strength Other Concerns Barriers to Rehabilitation chronic LBP, arthritis, aggressive form of prostate cancer per pt. Goals Two Impairment weakness Short Term Goal (STG) Pt to report reduction in pain intensity with less than 3/10 so that he is able to complete activities of daily living. STG Duration 6 weeks Marketing Executive Goal (LTG) Bilateral hip extension and flexion to improve to at least 4+/5 to increase pt's ability to perform ADLs without limitations due to weakness. LTG Duration 10-12 weeks One Impairment strength Short Term Goal (STG) Pt to be able consistently walk greater than 2 blocks before experiencing low back pain or weakness in bilateral low extremities. STG Duration 8 weeks Marketing Executive Goal (LTG) Pt to be independent with an aquatic program for lumbar stabilization and B LE strengthening and flexibility so that he can continue to engage in recreational exercise that does not exacerbate his chronic low back pain. LTG Duration 10-12 weeks Assessment Summary Assessment Pt required fewer cues for posture and core stabilization . Understands pelvic tilt now and can demonstrate during walking and squats. Slight increase in sciatic pain after initial stretching session at beginning of treatment after warm up. Pt with slight difficulty performing correct backward bicycling. Physical Therapy Plan Frequency and Duration Frequency of Treatment 2-3x/week Duration of Treatment 10-12 weeks Plan of Care Start Date 06/22/18 Plan of Care End Date 09/14/18 Therapeutic Interventions Therapeutic Interventions Aquatic Therapy Home Exercise Program Joint Mobilizations Manual Therapy Patient/Caregiver Education Soft Tissue Mobilization Taping Therapeutic Activities Therapeutic Exercises Next Visit Focus/Plan Next Note Type Treatment Note Next Visit Plan Evaluate response to today's aquatic physical therapy session and progress as indicated.
--- NOTE | 2018-07-10 16:21 | PT.OTN ---
Current Diagnoses Other chronic pain (07/10/18) Low back pain (07/10/18) Physical Therapy Treatment Note PT-OP-A Visit Information Start: 06/22/18 08:52 Freq: Status: Active Protocol: Document 07/10/18 13:15 LJ (Rec: 07/10/18 16:21 LJ [email or web address]) Out-Patient Physical Therapy Visit Information Visit Information Visit Type Aquatic Treatment Note Visit Start Time 13:15 Visit Stop Time 14:00 Total Visit Minutes 45 Visit Number 3 Number of FISH PEDDLER Visits 2 PT-OP-B Current Condition Start: 06/22/18 08:52 Freq: Status: Active Protocol: Document 06/22/18 08:53 BS (Rec: 06/22/18 09:02 BS [email or web address]) Current Condition History of Current Condition Onset Date chronic Current Complaints Constant LBP History of Current Condition Pt complains of chronic and constant low back pain that increases with lifting heavy objects, prolonged sitting/ standing, exercise, mopping, vacuuming, and especially with walking uphill. Pt denies radicular symptoms, but reports he has had sciatica in the past. He states that he has had low back pain for 30+ years and that he has has arthritis, stenosis, and a herniated disc. Pt has seen many providers over the years to manage his pain, including massage therapy, physical therapy, acupuncture, chiropractice care, and he has had a lower lumbar fusion. Pt reports that he enjoys walking but that his low back pain significantly increases after about 2 blocks and that he notices more weakness in his legs. Pt states he is currently being treated for aggressive prostate cancer, which has affected his B LE strength. His plan to manage low back pain at this point is through combination of physical therapy aquatics, health care technician, and acupuncture. Prior Treatments and Tests massage therapy, acupuncture, physical therapy, chiropractic . lumbar spine MRI: foraminal stenosis L1-L5, posterior disc herniation L2-3. Future Testing and Treatments Planned Pt plans to manage low back pain at this point through combination of physical therapy aquatics, health care technician, and acupuncture. He prefers not to be land based exercise. Treatment Goals Patient/Caregiver Goals figure out a program I can do in the pool to strengthen my core, legs, and work on flexibility Prior Functional Status Baseline Function- ADL's Independent Baseline Function- Mobility Independent Baseline Function- Gait Independent without AD Baseline Function- Work/School Pt is retired, worked a desk job for many years. Baseline Function- Recreation/Hobbies Independent Baseline Function- Other Independent Current Functional Impairments (Reported) Functional Limitations- ADL's Low back pain with ifting objects, mopping, vacuuming, sweeping, prolonged standing/ sitting, and walking. Functional Limitations- Mobility/Gait Pt reports he used to be able to walk for an hour but is sometimes limited to 2 blocks now due to increased LBP. Functional Limitations- Recreation/ Pt enjoys go on walks and Hobbies exercising in the pool, these activities have been limited due to LBP. Personal Factors Other Personal Factors That May Effect chronic LBP, lumbar fusion, Therapy/Recovery arthritis PT-OP-C Subjective Start: 06/22/18 08:52 Freq: Status: Active Protocol: Document 07/10/18 13:15 LJ (Rec: 07/10/18 16:21 LJ [email or web address]) OP-PT Subjective Patient Comments Patient Comments Pt states he wants to work on his core more and believes there is some disconnect from his brain to his LEs. Feels somewhat uncoordinated. PT-OP-F Manual Assessment Start: 06/22/18 13:29 Freq: Status: Active Protocol: Document 06/22/18 08:53 BS (Rec: 06/22/18 13:30 BS [email or web address]) Manual Assessments Soft Tissue Assessment Soft Tissue Mobility Assessment Hypertonicity to B lumbar paraspinals, no tenderenss noted Joint Mobility Assessment Joint Mobility Assessment Stiffness and hypomibilty from L1-L5 with central and unilateral PAs. Pt denied pain with joint mobility assessment. PT-OP-G Mobility & Gait Start: 06/22/18 08:52 Freq: Status: Active Protocol: Document 06/22/18 08:53 BS (Rec: 06/22/18 13:28 BS [email or web address]) OP Mobility Evaluation Bed Mobility Rolling Independent Supine to and from Sit Independent, use of B UEs Transfers Sit to Stand Independent, use of B UEs to push up from chair OP Gait Assessment Gait Gait Assistance Required: Independent Able to Maintain Weight Bearing Status Yes During Gait Gait Deviations General Gait Pattern Within Normal Limits Flexed Trunk Comments Gait Comments slight trunk flexion with ambulation in clinic. PT-OP-J Posture/Palpation/Skin Start: 06/22/18 08:52 Freq: Status: Active Protocol: Document 06/22/18 08:53 BS (Rec: 06/22/18 13:28 BS [email or web address]) Posture Evaluation Position Sitting Evaluation View Posterior Head/C-Spine Posture Forward Head Shoulder Posture (R) Rounded (R) Forward Comments Posture Comments stands with slight trunk flexion. Palpation Assessment Location One Palpation Location Lumbar Parapsinals Palpation Findings Soft Tissue Tightness Palpation Details Hypertonicity and tightness with palpation to B paraspinals, no tenderness noted. PT-OP-K Range of Motion Start: 06/22/18 08:52 Freq: Status: Active Protocol: Document 06/22/18 08:53 BS (Rec: 06/22/18 12:18 BS [email or web address]) Lumbar Spine Range of Motion Lumbar Spine Active Testing Position Standing Flexion 60 Extension 20 Comments Moderatly limited in bilateral rotation and sidebending. Pt reports stiffness with all lumbar AROM and some discomfort in low back. Hip Goniometric Range of Motion Hip Measured in Degrees Right Passive Hip ROM WFL No Testing Position Supine Flexion w/Knee Flexed 85 Straight Leg Raise 75 Left Passive Hip ROM WFL No Testing Position Supine Flexion w/Knee Flexed 88 Straight Leg Raise 60 Hip ROM Limitations Comments Low back pain reproduced with PROM hip flexion bilaterally. PT-OP-L Special Tests Start: 06/22/18 08:52 Freq: Status: Active Protocol: Document 06/22/18 08:53 BS (Rec: 06/22/18 12:18 BS [email or web address]) Special Tests Lumbar Spine Special Tests Slump Test Results Negative Straight Leg Raise Test Results + Prone Knee Flexion Test Results + Comments I can feel my vertebrae moving on eachother PT-OP-M Strength Start: 06/22/18 08:52 Freq: Status: Active Protocol: Document 06/22/18 08:53 BS (Rec: 06/22/18 12:18 BS [email or web address]) Hip Strength Hip Manual Muscle Testing Right Flexion (L2) 4+ Good+ Extension (S1) 4 Good Abduction 5 Normal External Rotation 5 Normal Internal Rotation 5 Normal Comments No pain during MMT Left Flexion (L2) 4+ Good+ Extension (S1) 4 Good Abduction 5 Normal External Rotation 5 Normal Internal Rotation 5 Normal Comments No pain during MMT Knee Strength Knee Manual Muscle Testing Right Flexion (S2) 5 Normal Extension (L3) 5 Normal Comments No pain during MMT Left Flexion (S2) 5 Normal Extension (L3) 5 Normal Comments No pain during MMT Ankle/Foot Strength Ankle and Foot Manual Muscle Testing Right Dorsiflexion (L4) 5 Normal Plantarflexion (S1) 5 Normal Comments No pain during MMT Left Dorsiflexion (L4) 5 Normal Plantarflexion (S1) 5 Normal Comments No pain during MMT PT-OP-S Aquatic Treatment Start: 06/26/18 17:21 Freq: Status: Active Protocol: Document 07/10/18 13:15 LISA (Rec: 07/10/18 16:21 LJ [email or web address]) Aquatics Treatment Pool Entry/Exit Pool Entry/Exit Method Stairs Assistance Independent Water Walking soldier, lunge walk Water Level Waist Level Level of Assistance Verbal Cues Comments good posture forward, backward, sideways Water Level Chest Level Level of Assistance Verbal Cues Comments cues for recriprocal arms Lower Extremity Exercises single leg squat bilat Water Level Waist Level Reps/Duration 10 each Comments good posture squats on sbottom stair Details hand hold Reps/Duration 10 Comments good posture and muscle activation Lower Extremity Stretches SKTW Details glute and piriformis stretch Body Position Standing Water Level Chest Level Reps/Duration 2x bilat Comments states he connot feel a stretch hamstring, IT band, adductors, quads, hip flex Equipment lg noodle Reps/Duration 2x ea Upper Extremity Exercises UE pull downs unilat Details sagit and frontal plane Body Position Standing Water Level Chest Level Equipment lg BBs Reps/Duration 10x Comments cues for glute tightening UE pull downs Details sagit and frontal plane, bilat Body Position Standing Water Level Chest Level Equipment large barbells Reps/Duration 10x Comments cues for glute tightening Randolph Activities Randolph Activities Bicycle Cross Country Running Other Activities bicycle with barbells held submerged at sides pendulum, front/back kick out bilat SLR in corner x10 crunches w/noodle under knees x12 Duration 25 Comments included 10 min of continuous moderate aerobic exercising with above moves PT-OP-T Assessment and Plan Start: 06/22/18 08:52 Freq: Status: Active Protocol: Document 07/10/18 13:15 LISA (Rec: 07/10/18 16:21 LJ [email or web address]) Physical Therapy Assessment Impairments Impairments Activity Tolerance Functional Activities Functional Mobility Pain ROM Soft Tissue Mobility Strength Other Concerns Barriers to Rehabilitation chronic LBP, arthritis, aggressive form of prostate cancer per pt. Goals Two Impairment weakness Short Term Goal (STG) Pt to report reduction in pain intensity with less than 3/10 so that he is able to complete activities of daily living. STG Duration 6 weeks Group Home Goal (LTG) Bilateral hip extension and flexion to improve to at least 4+/5 to increase pt's ability to perform ADLs without limitations due to weakness. LTG Duration 10-12 weeks One Impairment strength Short Term Goal (STG) Pt to be able consistently walk greater than 2 blocks before experiencing low back pain or weakness in bilateral low extremities. STG Duration 8 weeks Sports Manager Goal (LTG) Pt to be independent with an aquatic program for lumbar stabilization and B LE strengthening and flexibility so that he can continue to engage in recreational exercise that does not exacerbate his chronic low back pain. LTG Duration 10-12 weeks Assessment Summary Assessment Pt better coordinated in deep water this session. Still flexing at the hip and requiring cuing for increasing posterior movement of LEs for glute and HS strengthening. Physical Therapy Plan Frequency and Duration Frequency of Treatment 2-3x/week Duration of Treatment 10-12 weeks Plan of Care Start Date 06/22/18 Plan of Care End Date 09/14/18 Therapeutic Interventions Therapeutic Interventions Aquatic Therapy Home Exercise Program Joint Mobilizations Manual Therapy Patient/Caregiver Education Soft Tissue Mobilization Taping Therapeutic Activities Therapeutic Exercises Next Visit Focus/Plan Next Note Type Treatment Note Next Visit Plan Progress pt glute and core strength with addition of #2.5 wts for shallow and deep water exercise. Use ankle floats in shallow water for leg flex/ext for eccentric load on quads and glutes. Progress intensity of intervals in deep water.
--- NOTE | 2018-07-12 15:14 | PT.OTN ---
Current Diagnoses Other chronic pain (07/10/18) Low back pain (07/10/18) Physical Therapy Treatment Note PT-OP-A Visit Information Start: 06/22/18 08:52 Freq: Status: Active Protocol: Document 07/12/18 11:45 LJ (Rec: 07/12/18 15:14 LJ [email or web address]) Out-Patient Physical Therapy Visit Information Visit Information Visit Type Aquatic Treatment Note Visit Start Time 11:45 Visit Stop Time 12:30 Total Visit Minutes 45 Visit Number 5 Number of [facility] Visits 3 PT-OP-B Current Condition Start: 06/22/18 08:52 Freq: Status: Active Protocol: Document 06/22/18 08:53 BS (Rec: 06/22/18 09:02 BS [email or web address]) Current Condition History of Current Condition Onset Date chronic Current Complaints Constant LBP History of Current Condition Pt complains of chronic and constant low back pain that increases with lifting heavy objects, prolonged sitting/ standing, exercise, mopping, vacuuming, and especially with walking uphill. Pt denies radicular symptoms, but reports he has had sciatica in the past. He states that he has had low back pain for 30+ years and that he has has arthritis, stenosis, and a herniated disc. Pt has seen many providers over the years to manage his pain, including massage therapy, physical therapy, acupuncture, chiropractice care, and he has had a lower lumbar fusion. Pt reports that he enjoys walking but that his low back pain significantly increases after about 2 blocks and that he notices more weakness in his legs. Pt states he is currently being treated for aggressive prostate cancer, which has affected his B LE strength. His plan to manage low back pain at this point is through combination of physical therapy aquatics, animal caregiver, and acupuncture. Prior Treatments and Tests massage therapy, acupuncture, physical therapy, chiropractic . lumbar spine MRI: foraminal stenosis L1-L5, posterior disc herniation L2-3. Future Testing and Treatments Planned Pt plans to manage low back pain at this point through combination of physical therapy aquatics, animal caregiver, and acupuncture. He prefers not to be land based exercise. Treatment Goals Patient/Caregiver Goals figure out a program I can do in the pool to strengthen my core, legs, and work on flexibility Prior Functional Status Baseline Function- ADL's Independent Baseline Function- Mobility Independent Baseline Function- Gait Independent without AD Baseline Function- Work/School Pt is retired, worked a desk job for many years. Baseline Function- Recreation/Hobbies Independent Baseline Function- Other Independent Current Functional Impairments (Reported) Functional Limitations- ADL's Low back pain with ifting objects, mopping, vacuuming, sweeping, prolonged standing/ sitting, and walking. Functional Limitations- Mobility/Gait Pt reports he used to be able to walk for an hour but is sometimes limited to 2 blocks now due to increased LBP. Functional Limitations- Recreation/ Pt enjoys go on walks and Hobbies exercising in the pool, these activities have been limited due to LBP. Personal Factors Other Personal Factors That May Effect chronic LBP, lumbar fusion, Therapy/Recovery arthritis PT-OP-C Subjective Start: 06/22/18 08:52 Freq: Status: Active Protocol: Document 07/12/18 11:45 LJ (Rec: 07/12/18 15:14 LJ [email or web address]) OP-PT Subjective Patient Comments Patient Comments Pt visited an accupuncturist yesterday and was told he might have nerve damage evidenced by his lack of glute control and activation. Pt states agrees with the accupuncturist PT-OP-F Manual Assessment Start: 06/22/18 13:29 Freq: Status: Active Protocol: Document 06/22/18 08:53 BS (Rec: 06/22/18 13:30 BS [email or web address]) Manual Assessments Soft Tissue Assessment Soft Tissue Mobility Assessment Hypertonicity to B lumbar paraspinals, no tenderenss noted Joint Mobility Assessment Joint Mobility Assessment Stiffness and hypomibilty from L1-L5 with central and unilateral PAs. Pt denied pain with joint mobility assessment. PT-OP-G Mobility & Gait Start: 06/22/18 08:52 Freq: Status: Active Protocol: Document 06/22/18 08:53 BS (Rec: 06/22/18 13:28 BS [email or web address]) OP Mobility Evaluation Bed Mobility Rolling Independent Supine to and from Sit Independent, use of B UEs Transfers Sit to Stand Independent, use of B UEs to push up from chair OP Gait Assessment Gait Gait Assistance Required: Independent Able to Maintain Weight Bearing Status Yes During Gait Gait Deviations General Gait Pattern Within Normal Limits Flexed Trunk Comments Gait Comments slight trunk flexion with ambulation in clinic. PT-OP-J Posture/Palpation/Skin Start: 06/22/18 08:52 Freq: Status: Active Protocol: Document 06/22/18 08:53 BS (Rec: 06/22/18 13:28 BS [email or web address]) Posture Evaluation Position Sitting Evaluation View Posterior Head/C-Spine Posture Forward Head Shoulder Posture (R) Rounded (R) Forward Comments Posture Comments stands with slight trunk flexion. Palpation Assessment Location One Palpation Location Lumbar Parapsinals Palpation Findings Soft Tissue Tightness Palpation Details Hypertonicity and tightness with palpation to B paraspinals, no tenderness noted. PT-OP-K Range of Motion Start: 06/22/18 08:52 Freq: Status: Active Protocol: Document 06/22/18 08:53 BS (Rec: 06/22/18 12:18 BS [email or web address]) Lumbar Spine Range of Motion Lumbar Spine Active Testing Position Standing Flexion 60 Extension 20 Comments Moderatly limited in bilateral rotation and sidebending. Pt reports stiffness with all lumbar AROM and some discomfort in low back. Hip Goniometric Range of Motion Hip Measured in Degrees Right Passive Hip ROM WFL No Testing Position Supine Flexion w/Knee Flexed 85 Straight Leg Raise 75 Left Passive Hip ROM WFL No Testing Position Supine Flexion w/Knee Flexed 88 Straight Leg Raise 60 Hip ROM Limitations Comments Low back pain reproduced with PROM hip flexion bilaterally. PT-OP-L Special Tests Start: 06/22/18 08:52 Freq: Status: Active Protocol: Document 06/22/18 08:53 BS (Rec: 06/22/18 12:18 BS [email or web address]) Special Tests Lumbar Spine Special Tests Slump Test Results Negative Straight Leg Raise Test Results + Prone Knee Flexion Test Results + Comments I can feel my vertebrae moving on eachother PT-OP-M Strength Start: 06/22/18 08:52 Freq: Status: Active Protocol: Document 06/22/18 08:53 BS (Rec: 06/22/18 12:18 BS [email or web address]) Hip Strength Hip Manual Muscle Testing Right Flexion (L2) 4+ Good+ Extension (S1) 4 Good Abduction 5 Normal External Rotation 5 Normal Internal Rotation 5 Normal Comments No pain during MMT Left Flexion (L2) 4+ Good+ Extension (S1) 4 Good Abduction 5 Normal External Rotation 5 Normal Internal Rotation 5 Normal Comments No pain during MMT Knee Strength Knee Manual Muscle Testing Right Flexion (S2) 5 Normal Extension (L3) 5 Normal Comments No pain during MMT Left Flexion (S2) 5 Normal Extension (L3) 5 Normal Comments No pain during MMT Ankle/Foot Strength Ankle and Foot Manual Muscle Testing Right Dorsiflexion (L4) 5 Normal Plantarflexion (S1) 5 Normal Comments No pain during MMT Left Dorsiflexion (L4) 5 Normal Plantarflexion (S1) 5 Normal Comments No pain during MMT PT-OP-S Aquatic Treatment Start: 06/26/18 17:21 Freq: Status: Active Protocol: Document 07/12/18 11:45 LISA (Rec: 07/12/18 15:14 [email or web address]) Aquatics Treatment Pool Entry/Exit Pool Entry/Exit Method Stairs Assistance Independent Water Walking soldier, lunge walk Water Level Waist Level Level of Assistance Verbal Cues Comments good posture, added #2.5 wts forward, backward, sideways Water Level Chest Level Level of Assistance Verbal Cues Comments cues for recriprocal arms Lower Extremity Exercises flex/ext/ hs curl, ab/ad Water Level Chest Level Equipment #2.5 wts Reps/Duration 2 x10 squats on sbottom stair Details hand hold Reps/Duration 10 Comments good posture and muscle activation Lower Extremity Stretches SKTW Details glute and piriformis stretch Body Position Standing Water Level Chest Level Reps/Duration 2x bilat Comments states he connot feel a stretch hamstring, IT band, adductors, quads, hip flex Equipment lg noodle Reps/Duration 2x ea Spinal Exercises stretch cord abdominal bracing Details bilat Reps/Duration slight rotation with extended arms Comments x10 [place] Activities [place]ough Activities Bicycle Cross Country Running Other Activities bicycle with barbells held submerged at sides pendulum, front/back kick out bilat plank with abdominal crunch Duration 20 Comments included 10 min of continuous moderate aerobic exercising with above moves Swim Strokes back stroke flutter kick Laps/Duration 25M PT-OP-T Assessment and Plan Start: 06/22/18 08:52 Freq: Status: Active Protocol: Document 07/12/18 11:45 LISA (Rec: 07/12/18 15:14 LISA [email or web address]) Physical Therapy Assessment Impairments Impairments Activity Tolerance Functional Activities Functional Mobility Pain ROM Soft Tissue Mobility Strength Other Concerns Barriers to Rehabilitation chronic LBP, arthritis, aggressive form of prostate cancer per pt. Goals Two Impairment weakness Short Term Goal (STG) Pt to report reduction in pain intensity with less than 3/10 so that he is able to complete activities of daily living. STG Duration 6 weeks Manager Goal (LTG) Bilateral hip extension and flexion to improve to at least 4+/5 to increase pt's ability to perform ADLs without limitations due to weakness. LTG Duration 10-12 weeks One Impairment strength Short Term Goal (STG) Pt to be able consistently walk greater than 2 blocks before experiencing low back pain or weakness in bilateral low extremities. STG Duration 8 weeks Intermediate Goal (LTG) Pt to be independent with an aquatic program for lumbar stabilization and B LE strengthening and flexibility so that he can continue to engage in recreational exercise that does not exacerbate his chronic low back pain. LTG Duration 10-12 weeks Assessment Summary Assessment Pt demonstrates improved LE extension and glute activation . Good core stability in deep water plank. Physical Therapy Plan Frequency and Duration Frequency of Treatment 2-3x/week Duration of Treatment 10-12 weeks Plan of Care Start Date 06/22/18 Plan of Care End Date 09/14/18 Therapeutic Interventions Therapeutic Interventions Aquatic Therapy Home Exercise Program Joint Mobilizations Manual Therapy Patient/Caregiver Education Soft Tissue Mobilization Taping Therapeutic Activities Therapeutic Exercises Next Visit Focus/Plan Next Note Type Treatment Note Next Visit Plan Use ankle floats in shallow water for leg flex/ext for eccentric load on quads and glutes. Progress intensity of intervals in deep water.
--- NOTE | 2018-07-19 15:02 | PT.OTN ---
Current Diagnoses Other chronic pain (07/19/18) Low back pain (07/19/18) Physical Therapy Treatment Note PT-OP-A Visit Information Start: 06/22/18 08:52 Freq: Status: Active Protocol: Document 07/19/18 11:45 LJ (Rec: 07/19/18 15:02 LJ [email or web address]) Out-Patient Physical Therapy Visit Information Visit Information Visit Type Aquatic Treatment Note Visit Start Time 11:45 Visit Stop Time 12:30 Total Visit Minutes 45 Visit Number 5 Number of [employer]PER[employer] Visits 3 PT-OP-B Current Condition Start: 06/22/18 08:52 Freq: Status: Active Protocol: Document 06/22/18 08:53 BS (Rec: 06/22/18 09:02 BS [email or web address]) Current Condition History of Current Condition Onset Date chronic Current Complaints Constant LBP History of Current Condition Pt complains of chronic and constant low back pain that increases with lifting heavy objects, prolonged sitting/ standing, exercise, mopping, vacuuming, and especially with walking uphill. Pt denies radicular symptoms, but reports he has had sciatica in the past. He states that he has had low back pain for 30+ years and that he has has arthritis, stenosis, and a herniated disc. Pt has seen many providers over the years to manage his pain, including massage therapy, physical therapy, acupuncture, chiropractice care, and he has had a lower lumbar fusion. Pt reports that he enjoys walking but that his low back pain significantly increases after about 2 blocks and that he notices more weakness in his legs. Pt states he is currently being treated for aggressive prostate cancer, which has affected his B LE strength. His plan to manage low back pain at this point is through combination of physical therapy aquatics, child care team lead, and acupuncture. Prior Treatments and Tests massage therapy, acupuncture, physical therapy, chiropractic . lumbar spine MRI: foraminal stenosis L1-L5, posterior disc herniation L2-3. Future Testing and Treatments Planned Pt plans to manage low back pain at this point through combination of physical therapy aquatics, child care team lead, and acupuncture. He prefers not to be land based exercise. Treatment Goals Patient/Caregiver Goals figure out a program I can do in the pool to strengthen my core, legs, and work on flexibility Prior Functional Status Baseline Function- ADL's Independent Baseline Function- Mobility Independent Baseline Function- Gait Independent without AD Baseline Function- Work/School Pt is retired, worked a desk job for many years. Baseline Function- Recreation/Hobbies Independent Baseline Function- Other Independent Current Functional Impairments (Reported) Functional Limitations- ADL's Low back pain with ifting objects, mopping, vacuuming, sweeping, prolonged standing/ sitting, and walking. Functional Limitations- Mobility/Gait Pt reports he used to be able to walk for an hour but is sometimes limited to 2 blocks now due to increased LBP. Functional Limitations- Recreation/ Pt enjoys go on walks and Hobbies exercising in the pool, these activities have been limited due to LBP. Personal Factors Other Personal Factors That May Effect chronic LBP, lumbar fusion, Therapy/Recovery arthritis PT-OP-C Subjective Start: 06/22/18 08:52 Freq: Status: Active Protocol: Document 07/19/18 11:45 LJ (Rec: 07/19/18 15:02 LJ [email or web address]) OP-PT Subjective Patient Comments Patient Comments Pt reposts feeling stronger and post accupuncturist visit his thinking was clearer. Wakes up with almost no pain but as the day progresses his back begins to hurt. PT-OP-F Manual Assessment Start: 06/22/18 13:29 Freq: Status: Active Protocol: Document 06/22/18 08:53 BS (Rec: 06/22/18 13:30 BS [email or web address]) Manual Assessments Soft Tissue Assessment Soft Tissue Mobility Assessment Hypertonicity to B lumbar paraspinals, no tenderenss noted Joint Mobility Assessment Joint Mobility Assessment Stiffness and hypomibilty from L1-L5 with central and unilateral PAs. Pt denied pain with joint mobility assessment. PT-OP-G Mobility & Gait Start: 06/22/18 08:52 Freq: Status: Active Protocol: Document 06/22/18 08:53 BS (Rec: 06/22/18 13:28 BS [email or web address]) OP Mobility Evaluation Bed Mobility Rolling Independent Supine to and from Sit Independent, use of B UEs Transfers Sit to Stand Independent, use of B UEs to push up from chair OP Gait Assessment Gait Gait Assistance Required: Independent Able to Maintain Weight Bearing Status Yes During Gait Gait Deviations General Gait Pattern Within Normal Limits Flexed Trunk Comments Gait Comments slight trunk flexion with ambulation in clinic. PT-OP-J Posture/Palpation/Skin Start: 06/22/18 08:52 Freq: Status: Active Protocol: Document 06/22/18 08:53 BS (Rec: 06/22/18 13:28 BS [email or web address]) Posture Evaluation Position Sitting Evaluation View Posterior Head/C-Spine Posture Forward Head Shoulder Posture (R) Rounded (R) Forward Comments Posture Comments stands with slight trunk flexion. Palpation Assessment Location One Palpation Location Lumbar Parapsinals Palpation Findings Soft Tissue Tightness Palpation Details Hypertonicity and tightness with palpation to B paraspinals, no tenderness noted. PT-OP-K Range of Motion Start: 06/22/18 08:52 Freq: Status: Active Protocol: Document 06/22/18 08:53 BS (Rec: 06/22/18 12:18 BS [email or web address]) Lumbar Spine Range of Motion Lumbar Spine Active Testing Position Standing Flexion 60 Extension 20 Comments Moderatly limited in bilateral rotation and sidebending. Pt reports stiffness with all lumbar AROM and some discomfort in low back. Hip Goniometric Range of Motion Hip Measured in Degrees Right Passive Hip ROM WFL No Testing Position Supine Flexion w/Knee Flexed 85 Straight Leg Raise 75 Left Passive Hip ROM WFL No Testing Position Supine Flexion w/Knee Flexed 88 Straight Leg Raise 60 Hip ROM Limitations Comments Low back pain reproduced with PROM hip flexion bilaterally. PT-OP-L Special Tests Start: 06/22/18 08:52 Freq: Status: Active Protocol: Document 06/22/18 08:53 BS (Rec: 06/22/18 12:18 BS [email or web address]) Special Tests Lumbar Spine Special Tests Slump Test Results Negative Straight Leg Raise Test Results + Prone Knee Flexion Test Results + Comments I can feel my vertebrae moving on eachother PT-OP-M Strength Start: 06/22/18 08:52 Freq: Status: Active Protocol: Document 06/22/18 08:53 BS (Rec: 06/22/18 12:18 BS [email or web address]) Hip Strength Hip Manual Muscle Testing Right Flexion (L2) 4+ Good+ Extension (S1) 4 Good Abduction 5 Normal External Rotation 5 Normal Internal Rotation 5 Normal Comments No pain during MMT Left Flexion (L2) 4+ Good+ Extension (S1) 4 Good Abduction 5 Normal External Rotation 5 Normal Internal Rotation 5 Normal Comments No pain during MMT Knee Strength Knee Manual Muscle Testing Right Flexion (S2) 5 Normal Extension (L3) 5 Normal Comments No pain during MMT Left Flexion (S2) 5 Normal Extension (L3) 5 Normal Comments No pain during MMT Ankle/Foot Strength Ankle and Foot Manual Muscle Testing Right Dorsiflexion (L4) 5 Normal Plantarflexion (S1) 5 Normal Comments No pain during MMT Left Dorsiflexion (L4) 5 Normal Plantarflexion (S1) 5 Normal Comments No pain during MMT PT-OP-S Aquatic Treatment Start: 06/26/18 17:21 Freq: Status: Active Protocol: Document 07/19/18 11:45 LISA (Rec: 07/19/18 15:02 [email or web address]) Aquatics Treatment Pool Entry/Exit Pool Entry/Exit Method Stairs Assistance Independent Water Walking soldier, lunge walk Water Level Waist Level Level of Assistance Verbal Cues Comments good posture, added #2.5 wts forward, backward, sideways Water Level Chest Level Level of Assistance Verbal Cues Comments cues for recriprocal arms Lower Extremity Exercises flex/ext/ hs curl, ab/ad Water Level Chest Level Equipment Ankle Floats Reps/Duration 2 x10 Lower Extremity Stretches hamstring, IT band, adductors, quads, hip flex Equipment lg noodle Reps/Duration 2x ea Spinal Exercises stretch cord abdominal bracing Details bilat Reps/Duration slight rotation with extended arms Comments x20 both dir Duck Activities Duck Activities Bicycle Cross Country Running Other Activities bicycle with barbells held submerged at sides pendulum, front/back kick out bilat plank with abdominal crunch supine flutter kick at wall Duration 20 Comments included 10 min of continuous moderate aerobic exercising with above moves Swim Strokes back stroke flutter kick Laps/Duration 25M PT-OP-T Assessment and Plan Start: 06/22/18 08:52 Freq: Status: Active Protocol: Document 07/19/18 11:45 LISA (Rec: 07/19/18 15:02 [email or web address]) Physical Therapy Assessment Impairments Impairments Activity Tolerance Functional Activities Functional Mobility Pain ROM Soft Tissue Mobility Strength Other Concerns Barriers to Rehabilitation chronic LBP, arthritis, aggressive form of prostate cancer per pt. Goals Two Impairment weakness Short Term Goal (STG) Pt to report reduction in pain intensity with less than 3/10 so that he is able to complete activities of daily living. STG Duration 6 weeks [facility] Goal (LTG) Bilateral hip extension and flexion to improve to at least 4+/5 to increase pt's ability to perform ADLs without limitations due to weakness. LTG Duration 10-12 weeks One Impairment strength Short Term Goal (STG) Pt to be able consistently walk greater than 2 blocks before experiencing low back pain or weakness in bilateral low extremities. STG Duration 8 weeks [facility] Goal (LTG) Pt to be independent with an aquatic program for lumbar stabilization and B LE strengthening and flexibility so that he can continue to engage in recreational exercise that does not exacerbate his chronic low back pain. LTG Duration 10-12 weeks Assessment Summary Assessment Pt demonstrates improved LE extension and glute activation . Good core stability in deep water plank. Good control when using stretch cords Physical Therapy Plan Frequency and Duration Frequency of Treatment 2-3x/week Duration of Treatment 10-12 weeks Plan of Care Start Date 06/22/18 Plan of Care End Date 09/14/18 Therapeutic Interventions Therapeutic Interventions Aquatic Therapy Home Exercise Program Joint Mobilizations Manual Therapy Patient/Caregiver Education Soft Tissue Mobilization Taping Therapeutic Activities Therapeutic Exercises Next Visit Focus/Plan Next Note Type Treatment Note Next Visit Plan Use ankle floats in shallow water for leg flex/ext for eccentric load on quads and glutes. Progress intensity of intervals in deep water. Provide HEP.
--- NOTE | 2018-07-26 11:00 | PT.OTN ---
Current Diagnoses Other chronic pain (07/26/18) Low back pain (07/26/18) Physical Therapy Treatment Note PT-OP-A Visit Information Start: 06/22/18 08:52 Freq: Status: Active Protocol: Document 07/26/18 11:00 DLM (Rec: 07/26/18 18:53 DLM [id number]) Out-Patient Physical Therapy Visit Information Visit Information Visit Type Aquatic Treatment Note Visit Start Time 11:00 Visit Stop Time 11:45 Total Visit Minutes 45 Visit Number 7 Number of SLIP OPERATOR Visits 0 Evaluation Information Evaluation Date 06/22/18 PT-OP-B Current Condition Start: 06/22/18 08:52 Freq: Status: Active Protocol: Document 06/22/18 08:53 BS (Rec: 06/22/18 09:02 BS [email or web address]) Current Condition History of Current Condition Onset Date chronic Current Complaints Constant LBP History of Current Condition Pt complains of chronic and constant low back pain that increases with lifting heavy objects, prolonged sitting/ standing, exercise, mopping, vacuuming, and especially with walking uphill. Pt denies radicular symptoms, but reports he has had sciatica in the past. He states that he has had low back pain for 30+ years and that he has has arthritis, stenosis, and a herniated disc. Pt has seen many providers over the years to manage his pain, including massage therapy, physical therapy, acupuncture, chiropractice care, and he has had a lower lumbar fusion. Pt reports that he enjoys walking but that his low back pain significantly increases after about 2 blocks and that he notices more weakness in his legs. Pt states he is currently being treated for aggressive prostate cancer, which has affected his B LE strength. His plan to manage low back pain at this point is through combination of physical therapy aquatics, emergency care attendant, and acupuncture. Prior Treatments and Tests massage therapy, acupuncture, physical therapy, chiropractic . lumbar spine MRI: foraminal stenosis L1-L5, posterior disc herniation L2-3. Future Testing and Treatments Planned Pt plans to manage low back pain at this point through combination of physical therapy aquatics, emergency care attendant, and acupuncture. He prefers not to be land based exercise. Treatment Goals Patient/Caregiver Goals figure out a program I can do in the pool to strengthen my core, legs, and work on flexibility Prior Functional Status Baseline Function- ADL's Independent Baseline Function- Mobility Independent Baseline Function- Gait Independent without AD Baseline Function- Work/School Pt is retired, worked a desk job for many years. Baseline Function- Recreation/Hobbies Independent Baseline Function- Other Independent Current Functional Impairments (Reported) Functional Limitations- ADL's Low back pain with ifting objects, mopping, vacuuming, sweeping, prolonged standing/ sitting, and walking. Functional Limitations- Mobility/Gait Pt reports he used to be able to walk for an hour but is sometimes limited to 2 blocks now due to increased LBP. Functional Limitations- Recreation/ Pt enjoys go on walks and Hobbies exercising in the pool, these activities have been limited due to LBP. Personal Factors Other Personal Factors That May Effect chronic LBP, lumbar fusion, Therapy/Recovery arthritis PT-OP-C Subjective Start: 06/22/18 08:52 Freq: Status: Active Protocol: Document 07/26/18 11:00 DLM (Rec: 07/26/18 18:53 DLM [id number]) OP-PT Subjective Patient Comments Patient Comments He wants a 45 min pool workout that he will feel comfortable doing on his own for his core strength. He is also doing swimming laps for 20 min. He gets sore with his pool exercises and needs a rest day to recover. PT-OP-F Manual Assessment Start: 06/22/18 13:29 Freq: Status: Active Protocol: Document 06/22/18 08:53 BS (Rec: 06/22/18 13:30 BS [email or web address]) Manual Assessments Soft Tissue Assessment Soft Tissue Mobility Assessment Hypertonicity to B lumbar paraspinals, no tenderenss noted Joint Mobility Assessment Joint Mobility Assessment Stiffness and hypomibilty from L1-L5 with central and unilateral PAs. Pt denied pain with joint mobility assessment. PT-OP-G Mobility & Gait Start: 06/22/18 08:52 Freq: Status: Active Protocol: Document 06/22/18 08:53 BS (Rec: 06/22/18 13:28 BS [email or web address]) OP Mobility Evaluation Bed Mobility Rolling Independent Supine to and from Sit Independent, use of B UEs Transfers Sit to Stand Independent, use of B UEs to push up from chair OP Gait Assessment Gait Gait Assistance Required: Independent Able to Maintain Weight Bearing Status Yes During Gait Gait Deviations General Gait Pattern Within Normal Limits Flexed Trunk Comments Gait Comments slight trunk flexion with ambulation in clinic. PT-OP-J Posture/Palpation/Skin Start: 06/22/18 08:52 Freq: Status: Active Protocol: Document 06/22/18 08:53 BS (Rec: 06/22/18 13:28 BS [email or web address]) Posture Evaluation Position Sitting Evaluation View Posterior Head/C-Spine Posture Forward Head Shoulder Posture (R) Rounded (R) Forward Comments Posture Comments stands with slight trunk flexion. Palpation Assessment Location One Palpation Location Lumbar Parapsinals Palpation Findings Soft Tissue Tightness Palpation Details Hypertonicity and tightness with palpation to B paraspinals, no tenderness noted. PT-OP-K Range of Motion Start: 06/22/18 08:52 Freq: Status: Active Protocol: Document 06/22/18 08:53 BS (Rec: 06/22/18 12:18 BS [email or web address]) Lumbar Spine Range of Motion Lumbar Spine Active Testing Position Standing Flexion 60 Extension 20 Comments Moderatly limited in bilateral rotation and sidebending. Pt reports stiffness with all lumbar AROM and some discomfort in low back. Hip Goniometric Range of Motion Hip Measured in Degrees Right Passive Hip ROM WFL No Testing Position Supine Flexion w/Knee Flexed 85 Straight Leg Raise 75 Left Passive Hip ROM WFL No Testing Position Supine Flexion w/Knee Flexed 88 Straight Leg Raise 60 Hip ROM Limitations Comments Low back pain reproduced with PROM hip flexion bilaterally. PT-OP-L Special Tests Start: 06/22/18 08:52 Freq: Status: Active Protocol: Document 06/22/18 08:53 BS (Rec: 06/22/18 12:18 BS [email or web address]) Special Tests Lumbar Spine Special Tests Slump Test Results Negative Straight Leg Raise Test Results + Prone Knee Flexion Test Results + Comments I can feel my vertebrae moving on eachother PT-OP-M Strength Start: 06/22/18 08:52 Freq: Status: Active Protocol: Document 06/22/18 08:53 BS (Rec: 06/22/18 12:18 BS [email or web address]) Hip Strength Hip Manual Muscle Testing Right Flexion (L2) 4+ Good+ Extension (S1) 4 Good Abduction 5 Normal External Rotation 5 Normal Internal Rotation 5 Normal Comments No pain during MMT Left Flexion (L2) 4+ Good+ Extension (S1) 4 Good Abduction 5 Normal External Rotation 5 Normal Internal Rotation 5 Normal Comments No pain during MMT Knee Strength Knee Manual Muscle Testing Right Flexion (S2) 5 Normal Extension (L3) 5 Normal Comments No pain during MMT Left Flexion (S2) 5 Normal Extension (L3) 5 Normal Comments No pain during MMT Ankle/Foot Strength Ankle and Foot Manual Muscle Testing Right Dorsiflexion (L4) 5 Normal Plantarflexion (S1) 5 Normal Comments No pain during MMT Left Dorsiflexion (L4) 5 Normal Plantarflexion (S1) 5 Normal Comments No pain during MMT PT-OP-Q Treatments Start: 07/26/18 18:54 Freq: Status: Active Protocol: Document 07/26/18 11:00 DLM (Rec: 07/26/18 18:54 DLM [id number]) Self-Care/Home Management Treatment Education Patient Education Home Exercise Program Pain Management Other Education written HEP provided today, laminated card PT-OP-S Aquatic Treatment Start: 06/26/18 17:21 Freq: Status: Active Protocol: Document 07/26/18 11:00 DLM (Rec: 07/26/18 18:53 DLM [id number]) Aquatics Treatment Water Walking soldier, lunge walk Water Level Waist Level Level of Assistance Verbal Cues Comments good posture, added #2.5 wts forward, backward, sideways Water Level Chest Level Walking Equipment Ankle Weight- 2.5# Level of Assistance Verbal Cues Comments cues for recriprocal arms Lower Extremity Exercises flex/ext/ hs curl, ab/ad Body Position Standing Water Level Chest Level Reps/Duration 2 x10 reps Comments he does not like floats Lower Extremity Stretches SKTW Details glut and piriformis stretch Body Position Standing Water Level Chest Level Reps/Duration 2x bilat Comments states he can not feel a stretch hamstring, IT band, adductors, quads, hip flex Equipment lg noodle Reps/Duration 2x ea Spinal Exercises Burpees Details at wall Water Level Neck Level Reps/Duration 5 each direction Comments backward and side stretch cord abdominal bracing Details do Tuesday visit Comments held due to fatigue [place] Activities [place] Activities Bicycle Cross Country Running Hip Abduction/Adduction Other Activities bicycle with barbells held submerged at sides pendulum, front/back kick out bilat plank with abdominal crunch supine flutter kick at wall Equipment large barbells Duration 20 Comments included 10 min of continuous moderate aerobic exercising with above moves Swim Strokes back stroke flutter kick Comments stopped due to pain PT-OP-T Assessment and Plan Start: 06/22/18 08:52 Freq: Status: Active Protocol: Document 07/26/18 11:00 DLM (Rec: 07/26/18 18:53 DLM [id number]) Physical Therapy Assessment Goals Two Impairment weakness Short Term Goal (STG) Pt to report reduction in pain intensity with less than 3/10 so that he is able to complete activities of daily living. STG Duration 6 weeks Corrections Counselor Goal (LTG) Bilateral hip extension and flexion to improve to at least 4+/5 to increase pt's ability to perform ADLs without limitations due to weakness. LTG Duration 10-12 weeks One Impairment strength Short Term Goal (STG) Pt to be able consistently walk greater than 2 blocks before experiencing low back pain or weakness in bilateral low extremities. STG Duration 8 weeks Corrections Counselor Goal (LTG) Pt to be independent with an aquatic program for lumbar stabilization and B LE strengthening and flexibility so that he can continue to engage in recreational exercise that does not exacerbate his chronic low back pain. LTG Duration 10-12 weeks Progress Towards Goals Progress Towards Goals Progressing Toward Goals Assessment Summary Assessment He tolerated pool exercises well with fatigue. He demonstrates a good understanding of how to decrease reps of activity if he becomes sore or too tired. He needs cuing on how intense his work-out should be each visit. He does not like a lot of changes to his routine over -all. He is motivated to progress to an independent pool program. Physical Therapy Plan Frequency and Duration Frequency of Treatment 2-3x/week Duration of Treatment 10-12 weeks Plan of Care Start Date 06/22/18 Plan of Care End Date 09/14/18 Therapeutic Interventions Therapeutic Interventions Aquatic Therapy Home Exercise Program Joint Mobilizations Manual Therapy Patient/Caregiver Education Soft Tissue Mobilization Taping Therapeutic Activities Therapeutic Exercises Next Visit Focus/Plan Next Note Type Treatment Note Next Visit Plan Review HEP, focus on establishing program for HEP
--- NOTE | 2018-07-28 15:26 | PT.OTN ---
Current Diagnoses Other chronic pain (07/28/18) Low back pain (07/28/18) Physical Therapy Treatment Note PT-OP-A Visit Information Start: 06/22/18 08:52 Freq: Status: Active Protocol: Document 07/28/18 11:45 LJ (Rec: 07/28/18 15:26 LJ [email or web address]) Out-Patient Physical Therapy Visit Information Visit Information Visit Type Aquatic Treatment Note Visit Start Time 11:00 Visit Stop Time 11:45 Total Visit Minutes 45 Visit Number 8 Number of MULTIMEDIA PROGRAMMER Visits 1 PT-OP-B Current Condition Start: 06/22/18 08:52 Freq: Status: Active Protocol: Document 06/22/18 08:53 BS (Rec: 06/22/18 09:02 BS [email or web address]) Current Condition History of Current Condition Onset Date chronic Current Complaints Constant LBP History of Current Condition Pt complains of chronic and constant low back pain that increases with lifting heavy objects, prolonged sitting/ standing, exercise, mopping, vacuuming, and especially with walking uphill. Pt denies radicular symptoms, but reports he has had sciatica in the past. He states that he has had low back pain for 30+ years and that he has has arthritis, stenosis, and a herniated disc. Pt has seen many providers over the years to manage his pain, including massage therapy, physical therapy, acupuncture, chiropractice care, and he has had a lower lumbar fusion. Pt reports that he enjoys walking but that his low back pain significantly increases after about 2 blocks and that he notices more weakness in his legs. Pt states he is currently being treated for aggressive prostate cancer, which has affected his B LE strength. His plan to manage low back pain at this point is through combination of physical therapy aquatics, adult care provider, and acupuncture. Prior Treatments and Tests massage therapy, acupuncture, physical therapy, chiropractic . lumbar spine MRI: foraminal stenosis L1-L5, posterior disc herniation L2-3. Future Testing and Treatments Planned Pt plans to manage low back pain at this point through combination of physical therapy aquatics, adult care provider, and acupuncture. He prefers not to be land based exercise. Treatment Goals Patient/Caregiver Goals figure out a program I can do in the pool to strengthen my core, legs, and work on flexibility Prior Functional Status Baseline Function- ADL's Independent Baseline Function- Mobility Independent Baseline Function- Gait Independent without AD Baseline Function- Work/School Pt is retired, worked a desk job for many years. Baseline Function- Recreation/Hobbies Independent Baseline Function- Other Independent Current Functional Impairments (Reported) Functional Limitations- ADL's Low back pain with ifting objects, mopping, vacuuming, sweeping, prolonged standing/ sitting, and walking. Functional Limitations- Mobility/Gait Pt reports he used to be able to walk for an hour but is sometimes limited to 2 blocks now due to increased LBP. Functional Limitations- Recreation/ Pt enjoys go on walks and Hobbies exercising in the pool, these activities have been limited due to LBP. Personal Factors Other Personal Factors That May Effect chronic LBP, lumbar fusion, Therapy/Recovery arthritis PT-OP-C Subjective Start: 06/22/18 08:52 Freq: Status: Active Protocol: Document 07/28/18 11:45 LJ (Rec: 07/28/18 15:26 LJ [email or web address]) OP-PT Subjective Patient Comments Patient Comments Wants to repeat exercises given him on HEP to be sure he can perform them correctly when he is on his own. PT-OP-F Manual Assessment Start: 06/22/18 13:29 Freq: Status: Active Protocol: Document 06/22/18 08:53 BS (Rec: 06/22/18 13:30 BS [email or web address]) Manual Assessments Soft Tissue Assessment Soft Tissue Mobility Assessment Hypertonicity to B lumbar paraspinals, no tenderenss noted Joint Mobility Assessment Joint Mobility Assessment Stiffness and hypomibilty from L1-L5 with central and unilateral PAs. Pt denied pain with joint mobility assessment. PT-OP-G Mobility & Gait Start: 06/22/18 08:52 Freq: Status: Active Protocol: Document 06/22/18 08:53 BS (Rec: 06/22/18 13:28 BS [email or web address]) OP Mobility Evaluation Bed Mobility Rolling Independent Supine to and from Sit Independent, use of B UEs Transfers Sit to Stand Independent, use of B UEs to push up from chair OP Gait Assessment Gait Gait Assistance Required: Independent Able to Maintain Weight Bearing Status Yes During Gait Gait Deviations General Gait Pattern Within Normal Limits Flexed Trunk Comments Gait Comments slight trunk flexion with ambulation in clinic. PT-OP-J Posture/Palpation/Skin Start: 06/22/18 08:52 Freq: Status: Active Protocol: Document 06/22/18 08:53 BS (Rec: 06/22/18 13:28 BS [email or web address]) Posture Evaluation Position Sitting Evaluation View Posterior Head/C-Spine Posture Forward Head Shoulder Posture (R) Rounded (R) Forward Comments Posture Comments stands with slight trunk flexion. Palpation Assessment Location One Palpation Location Lumbar Parapsinals Palpation Findings Soft Tissue Tightness Palpation Details Hypertonicity and tightness with palpation to B paraspinals, no tenderness noted. PT-OP-K Range of Motion Start: 06/22/18 08:52 Freq: Status: Active Protocol: Document 06/22/18 08:53 BS (Rec: 06/22/18 12:18 BS [email or web address]) Lumbar Spine Range of Motion Lumbar Spine Active Testing Position Standing Flexion 60 Extension 20 Comments Moderatly limited in bilateral rotation and sidebending. Pt reports stiffness with all lumbar AROM and some discomfort in low back. Hip Goniometric Range of Motion Hip Measured in Degrees Right Passive Hip ROM WFL No Testing Position Supine Flexion w/Knee Flexed 85 Straight Leg Raise 75 Left Passive Hip ROM WFL No Testing Position Supine Flexion w/Knee Flexed 88 Straight Leg Raise 60 Hip ROM Limitations Comments Low back pain reproduced with PROM hip flexion bilaterally. PT-OP-L Special Tests Start: 06/22/18 08:52 Freq: Status: Active Protocol: Document 06/22/18 08:53 BS (Rec: 06/22/18 12:18 BS [email or web address]) Special Tests Lumbar Spine Special Tests Slump Test Results Negative Straight Leg Raise Test Results + Prone Knee Flexion Test Results + Comments I can feel my vertebrae moving on eachother PT-OP-M Strength Start: 06/22/18 08:52 Freq: Status: Active Protocol: Document 06/22/18 08:53 BS (Rec: 06/22/18 12:18 BS [email or web address]) Hip Strength Hip Manual Muscle Testing Right Flexion (L2) 4+ Good+ Extension (S1) 4 Good Abduction 5 Normal External Rotation 5 Normal Internal Rotation 5 Normal Comments No pain during MMT Left Flexion (L2) 4+ Good+ Extension (S1) 4 Good Abduction 5 Normal External Rotation 5 Normal Internal Rotation 5 Normal Comments No pain during MMT Knee Strength Knee Manual Muscle Testing Right Flexion (S2) 5 Normal Extension (L3) 5 Normal Comments No pain during MMT Left Flexion (S2) 5 Normal Extension (L3) 5 Normal Comments No pain during MMT Ankle/Foot Strength Ankle and Foot Manual Muscle Testing Right Dorsiflexion (L4) 5 Normal Plantarflexion (S1) 5 Normal Comments No pain during MMT Left Dorsiflexion (L4) 5 Normal Plantarflexion (S1) 5 Normal Comments No pain during MMT PT-OP-Q Treatments Start: 07/26/18 18:54 Freq: Status: Active Protocol: Document 07/26/18 11:00 DLM (Rec: 07/26/18 18:54 DLM [id number]) Self-Care/Home Management Treatment Education Patient Education Home Exercise Program Pain Management Other Education written HEP provided today, laminated card PT-OP-S Aquatic Treatment Start: 06/26/18 17:21 Freq: Status: Active Protocol: Document 07/28/18 11:45 LJ (Rec: 07/28/18 15:26 LJ [email or web address]) Aquatics Treatment Pool Entry/Exit Pool Entry/Exit Method Stairs Assistance Independent Water Walking soldier, lunge walk Water Level Waist Level Level of Assistance Verbal Cues Comments good posture, added #2.5 wts forward, backward, sideways Water Level Chest Level Walking Equipment Ankle Weight- 2.5# Level of Assistance Verbal Cues Comments cues for recriprocal arms Lower Extremity Exercises flex/ext/ hs curl, ab/ad Body Position Standing Water Level Chest Level Reps/Duration 2 x10 reps Comments he does not like floats Lower Extremity Stretches SKTW Details glute and piriformis stretch Body Position Standing Water Level Chest Level Reps/Duration 2x bilat 30 sec hamstring, IT band, adductors, quads, hip flex Equipment lg noodle Reps/Duration 2x ea 30 sec Spinal Exercises Burpees Details at wall Water Level Neck Level Reps/Duration 5 each direction Comments cues to keep legs lower when extending stretch cord abdominal bracing Details 10 rotations each direction using both cords Reps/Duration 10 both directions [place] Activities [place] Activities Bicycle Cross Country Running Hip Abduction/Adduction Other Activities bicycle with barbells held submerged at sides pendulum, front/back kick out bilat plank with abdominal crunch supine flutter kick at wall Equipment large barbells Duration 20 Comments 4 sets 30'30' bicycling, ski, jog, jacks PT-OP-T Assessment and Plan Start: 06/22/18 08:52 Freq: Status: Active Protocol: Document 07/28/18 11:45 LJ (Rec: 07/28/18 15:26 LJ [email or web address]) Physical Therapy Assessment Impairments Impairments Activity Tolerance Functional Activities Functional Mobility Pain ROM Soft Tissue Mobility Strength Other Concerns Barriers to Rehabilitation chronic LBP, arthritis, aggressive form of prostate cancer per pt. Goals Two Impairment weakness Short Term Goal (STG) Pt to report reduction in pain intensity with less than 3/10 so that he is able to complete activities of daily living. STG Duration 6 weeks Nursing Home Goal (LTG) Bilateral hip extension and flexion to improve to at least 4+/5 to increase pt's ability to perform ADLs without limitations due to weakness. LTG Duration 10-12 weeks One Impairment strength Short Term Goal (STG) Pt to be able consistently walk greater than 2 blocks before experiencing low back pain or weakness in bilateral low extremities. STG Duration 8 weeks Clinical Editor Goal (LTG) Pt to be independent with an aquatic program for lumbar stabilization and B LE strengthening and flexibility so that he can continue to engage in recreational exercise that does not exacerbate his chronic low back pain. LTG Duration 10-12 weeks Progress Towards Goals Progress Towards Goals Progressing Toward Goals Assessment Summary Assessment Pt tolerated exercises well with good posture except for cuing to minimize hip flexion with posterior chain exercises . Also requiring cues for breath control Physical Therapy Plan Frequency and Duration Frequency of Treatment 2-3x/week Duration of Treatment 10-12 weeks Plan of Care Start Date 06/22/18 Plan of Care End Date 09/14/18 Therapeutic Interventions Therapeutic Interventions Aquatic Therapy Home Exercise Program Joint Mobilizations Manual Therapy Patient/Caregiver Education Soft Tissue Mobilization Taping Therapeutic Activities Therapeutic Exercises Next Visit Focus/Plan Next Note Type Treatment Note Next Visit Plan Review HEP, focus on establishing program for HEP. To increase ability to walk on land pt instructed to begin walking on treadmill for 5 min prior to entering pool.
--- NOTE | 2018-07-31 15:58 | PT.OTN ---
Current Diagnoses Other chronic pain (07/31/18) Low back pain (07/31/18) Physical Therapy Treatment Note PT-OP-A Visit Information Start: 06/22/18 08:52 Freq: Status: Active Protocol: Document 07/31/18 10:15 LJ (Rec: 07/31/18 15:58 LJ [email or web address]) Out-Patient Physical Therapy Visit Information Visit Information Visit Type Aquatic Treatment Note Visit Start Time 10:15 Visit Stop Time 11:00 Total Visit Minutes 45 Visit Number 9 Number of CHEMICAL INSPECTOR Visits 1 PT-OP-B Current Condition Start: 06/22/18 08:52 Freq: Status: Active Protocol: Document 06/22/18 08:53 BS (Rec: 06/22/18 09:02 BS [email or web address]) Current Condition History of Current Condition Onset Date chronic Current Complaints Constant LBP History of Current Condition Pt complains of chronic and constant low back pain that increases with lifting heavy objects, prolonged sitting/ standing, exercise, mopping, vacuuming, and especially with walking uphill. Pt denies radicular symptoms, but reports he has had sciatica in the past. He states that he has had low back pain for 30+ years and that he has has arthritis, stenosis, and a herniated disc. Pt has seen many providers over the years to manage his pain, including massage therapy, physical therapy, acupuncture, chiropractice care, and he has had a lower lumbar fusion. Pt reports that he enjoys walking but that his low back pain significantly increases after about 2 blocks and that he notices more weakness in his legs. Pt states he is currently being treated for aggressive prostate cancer, which has affected his B LE strength. His plan to manage low back pain at this point is through combination of physical therapy aquatics, campground caretaker, and acupuncture. Prior Treatments and Tests massage therapy, acupuncture, physical therapy, chiropractic . lumbar spine MRI: foraminal stenosis L1-L5, posterior disc herniation L2-3. Future Testing and Treatments Planned Pt plans to manage low back pain at this point through combination of physical therapy aquatics, campground caretaker, and acupuncture. He prefers not to be land based exercise. Treatment Goals Patient/Caregiver Goals figure out a program I can do in the pool to strengthen my core, legs, and work on flexibility Prior Functional Status Baseline Function- ADL's Independent Baseline Function- Mobility Independent Baseline Function- Gait Independent without AD Baseline Function- Work/School Pt is retired, worked a desk job for many years. Baseline Function- Recreation/Hobbies Independent Baseline Function- Other Independent Current Functional Impairments (Reported) Functional Limitations- ADL's Low back pain with ifting objects, mopping, vacuuming, sweeping, prolonged standing/ sitting, and walking. Functional Limitations- Mobility/Gait Pt reports he used to be able to walk for an hour but is sometimes limited to 2 blocks now due to increased LBP. Functional Limitations- Recreation/ Pt enjoys go on walks and Hobbies exercising in the pool, these activities have been limited due to LBP. Personal Factors Other Personal Factors That May Effect chronic LBP, lumbar fusion, Therapy/Recovery arthritis PT-OP-C Subjective Start: 06/22/18 08:52 Freq: Status: Active Protocol: Document 07/31/18 10:15 LJ (Rec: 07/31/18 15:58 LJ [email or web address]) OP-PT Subjective Patient Comments Patient Comments Pt states he feels stronger and wants to continue aquatic exercise several times a week with some days being independent. PT-OP-F Manual Assessment Start: 06/22/18 13:29 Freq: Status: Active Protocol: Document 06/22/18 08:53 BS (Rec: 06/22/18 13:30 BS [email or web address]) Manual Assessments Soft Tissue Assessment Soft Tissue Mobility Assessment Hypertonicity to B lumbar paraspinals, no tenderenss noted Joint Mobility Assessment Joint Mobility Assessment Stiffness and hypomibilty from L1-L5 with central and unilateral PAs. Pt denied pain with joint mobility assessment. PT-OP-G Mobility & Gait Start: 06/22/18 08:52 Freq: Status: Active Protocol: Document 06/22/18 08:53 BS (Rec: 06/22/18 13:28 BS [email or web address]) OP Mobility Evaluation Bed Mobility Rolling Independent Supine to and from Sit Independent, use of B UEs Transfers Sit to Stand Independent, use of B UEs to push up from chair OP Gait Assessment Gait Gait Assistance Required: Independent Able to Maintain Weight Bearing Status Yes During Gait Gait Deviations General Gait Pattern Within Normal Limits Flexed Trunk Comments Gait Comments slight trunk flexion with ambulation in clinic. PT-OP-J Posture/Palpation/Skin Start: 06/22/18 08:52 Freq: Status: Active Protocol: Document 06/22/18 08:53 BS (Rec: 06/22/18 13:28 BS [email or web address]) Posture Evaluation Position Sitting Evaluation View Posterior Head/C-Spine Posture Forward Head Shoulder Posture (R) Rounded (R) Forward Comments Posture Comments stands with slight trunk flexion. Palpation Assessment Location One Palpation Location Lumbar Parapsinals Palpation Findings Soft Tissue Tightness Palpation Details Hypertonicity and tightness with palpation to B paraspinals, no tenderness noted. PT-OP-K Range of Motion Start: 06/22/18 08:52 Freq: Status: Active Protocol: Document 06/22/18 08:53 BS (Rec: 06/22/18 12:18 BS [email or web address]) Lumbar Spine Range of Motion Lumbar Spine Active Testing Position Standing Flexion 60 Extension 20 Comments Moderatly limited in bilateral rotation and sidebending. Pt reports stiffness with all lumbar AROM and some discomfort in low back. Hip Goniometric Range of Motion Hip Measured in Degrees Right Passive Hip ROM WFL No Testing Position Supine Flexion w/Knee Flexed 85 Straight Leg Raise 75 Left Passive Hip ROM WFL No Testing Position Supine Flexion w/Knee Flexed 88 Straight Leg Raise 60 Hip ROM Limitations Comments Low back pain reproduced with PROM hip flexion bilaterally. PT-OP-L Special Tests Start: 06/22/18 08:52 Freq: Status: Active Protocol: Document 06/22/18 08:53 BS (Rec: 06/22/18 12:18 BS [email or web address]) Special Tests Lumbar Spine Special Tests Slump Test Results Negative Straight Leg Raise Test Results + Prone Knee Flexion Test Results + Comments I can feel my vertebrae moving on eachother PT-OP-M Strength Start: 06/22/18 08:52 Freq: Status: Active Protocol: Document 06/22/18 08:53 BS (Rec: 06/22/18 12:18 BS [email or web address]) Hip Strength Hip Manual Muscle Testing Right Flexion (L2) 4+ Good+ Extension (S1) 4 Good Abduction 5 Normal External Rotation 5 Normal Internal Rotation 5 Normal Comments No pain during MMT Left Flexion (L2) 4+ Good+ Extension (S1) 4 Good Abduction 5 Normal External Rotation 5 Normal Internal Rotation 5 Normal Comments No pain during MMT Knee Strength Knee Manual Muscle Testing Right Flexion (S2) 5 Normal Extension (L3) 5 Normal Comments No pain during MMT Left Flexion (S2) 5 Normal Extension (L3) 5 Normal Comments No pain during MMT Ankle/Foot Strength Ankle and Foot Manual Muscle Testing Right Dorsiflexion (L4) 5 Normal Plantarflexion (S1) 5 Normal Comments No pain during MMT Left Dorsiflexion (L4) 5 Normal Plantarflexion (S1) 5 Normal Comments No pain during MMT PT-OP-Q Treatments Start: 07/26/18 18:54 Freq: Status: Active Protocol: Document 07/26/18 11:00 DLM (Rec: 07/26/18 18:54 DLM [email or web address]) Self-Care/Home Management Treatment Education Patient Education Home Exercise Program Pain Management Other Education written HEP provided today, laminated card PT-OP-S Aquatic Treatment Start: 06/26/18 17:21 Freq: Status: Active Protocol: Document 07/31/18 10:15 LISA (Rec: 07/31/18 15:58 LISA [email or web address]) Aquatics Treatment Pool Entry/Exit Pool Entry/Exit Method Stairs Assistance Independent Water Walking soldier, lunge walk Water Level Waist Level Level of Assistance Verbal Cues Comments good posture, added #2.5 wts forward, backward, sideways Water Level Chest Level Walking Equipment Ankle Weight- 2.5# Level of Assistance Verbal Cues Lower Extremity Exercises flex/ext/ hs curl, ab/ad Body Position Standing Water Level Chest Level Reps/Duration 2 x10 reps Comments he does not like floats Lower Extremity Stretches hamstring, IT band, adductors, quads, hip flex Equipment lg noodle Reps/Duration 2x ea 30 sec Spinal Exercises Burpees Details at wall Water Level Neck Level Reps/Duration 7 each direction Comments cues to keep legs lower when extending stretch cord abdominal bracing Comments pt refused [place] Activities [place] Activities Bicycle [place] Running Hip Abduction/Adduction Other Activities bicycle with barbells held submerged at sides pendulum, front/back kick out bilat flutter kicking at wall prone to vertical plank with abdominal crunch supine flutter kick at wall Duration 20 Comments 4 sets 30'30' bicycling, ski, jog, jacks PT-OP-T Assessment and Plan Start: 06/22/18 08:52 Freq: Status: Active Protocol: Document 07/31/18 10:15 LISA (Rec: 07/31/18 15:58 LISA [email or web address]) Physical Therapy Assessment Impairments Impairments Activity Tolerance Functional Activities Functional Mobility Pain ROM Soft Tissue Mobility Strength Other Concerns Barriers to Rehabilitation chronic LBP, arthritis, aggressive form of prostate cancer per pt. Goals Two Impairment weakness Short Term Goal (STG) Pt to report reduction in pain intensity with less than 3/10 so that he is able to complete activities of daily living. STG Duration 6 weeks Senior Living Goal (LTG) Bilateral hip extension and flexion to improve to at least 4+/5 to increase pt's ability to perform ADLs without limitations due to weakness. LTG Duration 10-12 weeks One Impairment strength Short Term Goal (STG) Pt to be able consistently walk greater than 2 blocks before experiencing low back pain or weakness in bilateral low extremities. STG Duration 8 weeks Head Irrigator Goal (LTG) Pt to be independent with an aquatic program for lumbar stabilization and B LE strengthening and flexibility so that he can continue to engage in recreational exercise that does not exacerbate his chronic low back pain. LTG Duration 10-12 weeks Progress Towards Goals Progress Towards Goals Progressing Toward Goals Assessment Summary Assessment Pt stretched prior to session and again during session emphasizing hip flexor stretch . He felt the stretching this time (used noodle and manual assist). Pt still unsure if he is always using his glutes in deep water exercises therefore he did flutter kick at wall from prone to vertical to maintain glute activation. Physical Therapy Plan Frequency and Duration Frequency of Treatment 2-3x/week Duration of Treatment 10-12 weeks Plan of Care Start Date 06/22/18 Plan of Care End Date 09/14/18 Therapeutic Interventions Therapeutic Interventions Aquatic Therapy Home Exercise Program Joint Mobilizations Manual Therapy Patient/Caregiver Education Soft Tissue Mobilization Taping Therapeutic Activities Therapeutic Exercises Next Visit Focus/Plan Next Note Type Treatment Note Next Visit Plan Review HEP, focus on establishing program for HEP. To increase ability to walk on land pt instructed to begin walking on treadmill for 5 min prior to entering pool.
--- NOTE | 2018-08-02 14:58 | PT.OTN ---
Current Diagnoses Other chronic pain (07/31/18) Low back pain (07/31/18) Physical Therapy Treatment Note PT-OP-A Visit Information Start: 06/22/18 08:52 Freq: Status: Active Protocol: Document 08/02/18 11:00 LJ (Rec: 08/02/18 14:58 LJ [email or web address]) Out-Patient Physical Therapy Visit Information Visit Information Visit Type Aquatic Treatment Note Visit Start Time 11:00 Visit Stop Time 11:45 Total Visit Minutes 45 Visit Number 10 Number of BUFFER AUTOMATIC Visits 3 PT-OP-B Current Condition Start: 06/22/18 08:52 Freq: Status: Active Protocol: Document 06/22/18 08:53 BS (Rec: 06/22/18 09:02 BS [email or web address]) Current Condition History of Current Condition Onset Date chronic Current Complaints Constant LBP History of Current Condition Pt complains of chronic and constant low back pain that increases with lifting heavy objects, prolonged sitting/ standing, exercise, mopping, vacuuming, and especially with walking uphill. Pt denies radicular symptoms, but reports he has had sciatica in the past. He states that he has had low back pain for 30+ years and that he has has arthritis, stenosis, and a herniated disc. Pt has seen many providers over the years to manage his pain, including massage therapy, physical therapy, acupuncture, chiropractice care, and he has had a lower lumbar fusion. Pt reports that he enjoys walking but that his low back pain significantly increases after about 2 blocks and that he notices more weakness in his legs. Pt states he is currently being treated for aggressive prostate cancer, which has affected his B LE strength. His plan to manage low back pain at this point is through combination of physical therapy aquatics, career placement specialist, and acupuncture. Prior Treatments and Tests massage therapy, acupuncture, physical therapy, chiropractic . lumbar spine MRI: foraminal stenosis L1-L5, posterior disc herniation L2-3. Future Testing and Treatments Planned Pt plans to manage low back pain at this point through combination of physical therapy aquatics, career placement specialist, and acupuncture. He prefers not to be land based exercise. Treatment Goals Patient/Caregiver Goals figure out a program I can do in the pool to strengthen my core, legs, and work on flexibility Prior Functional Status Baseline Function- ADL's Independent Baseline Function- Mobility Independent Baseline Function- Gait Independent without AD Baseline Function- Work/School Pt is retired, worked a desk job for many years. Baseline Function- Recreation/Hobbies Independent Baseline Function- Other Independent Current Functional Impairments (Reported) Functional Limitations- ADL's Low back pain with ifting objects, mopping, vacuuming, sweeping, prolonged standing/ sitting, and walking. Functional Limitations- Mobility/Gait Pt reports he used to be able to walk for an hour but is sometimes limited to 2 blocks now due to increased LBP. Functional Limitations- Recreation/ Pt enjoys go on walks and Hobbies exercising in the pool, these activities have been limited due to LBP. Personal Factors Other Personal Factors That May Effect chronic LBP, lumbar fusion, Therapy/Recovery arthritis PT-OP-C Subjective Start: 06/22/18 08:52 Freq: Status: Active Protocol: Document 08/02/18 11:00 LJ (Rec: 08/02/18 14:58 LJ [email or web address]) OP-PT Subjective Patient Comments Patient Comments Pt went for 25 min walk yesterday on uneven ground with small hills. States his back ws sore afterwards. He says that as his core gets stronger he feels pain in his upper back. Thinks the pain is shifting. PT-OP-F Manual Assessment Start: 06/22/18 13:29 Freq: Status: Active Protocol: Document 06/22/18 08:53 BS (Rec: 06/22/18 13:30 BS [email or web address]) Manual Assessments Soft Tissue Assessment Soft Tissue Mobility Assessment Hypertonicity to B lumbar paraspinals, no tenderenss noted Joint Mobility Assessment Joint Mobility Assessment Stiffness and hypomibilty from L1-L5 with central and unilateral PAs. Pt denied pain with joint mobility assessment. PT-OP-G Mobility & Gait Start: 06/22/18 08:52 Freq: Status: Active Protocol: Document 06/22/18 08:53 BS (Rec: 06/22/18 13:28 BS [email or web address]) OP Mobility Evaluation Bed Mobility Rolling Independent Supine to and from Sit Independent, use of B UEs Transfers Sit to Stand Independent, use of B UEs to push up from chair OP Gait Assessment Gait Gait Assistance Required: Independent Able to Maintain Weight Bearing Status Yes During Gait Gait Deviations General Gait Pattern Within Normal Limits Flexed Trunk Comments Gait Comments slight trunk flexion with ambulation in clinic. PT-OP-J Posture/Palpation/Skin Start: 06/22/18 08:52 Freq: Status: Active Protocol: Document 06/22/18 08:53 BS (Rec: 06/22/18 13:28 BS [email or web address]) Posture Evaluation Position Sitting Evaluation View Posterior Head/C-Spine Posture Forward Head Shoulder Posture (R) Rounded (R) Forward Comments Posture Comments stands with slight trunk flexion. Palpation Assessment Location One Palpation Location Lumbar Parapsinals Palpation Findings Soft Tissue Tightness Palpation Details Hypertonicity and tightness with palpation to B paraspinals, no tenderness noted. PT-OP-K Range of Motion Start: 06/22/18 08:52 Freq: Status: Active Protocol: Document 06/22/18 08:53 BS (Rec: 06/22/18 12:18 BS [email or web address]) Lumbar Spine Range of Motion Lumbar Spine Active Testing Position Standing Flexion 60 Extension 20 Comments Moderatly limited in bilateral rotation and sidebending. Pt reports stiffness with all lumbar AROM and some discomfort in low back. Hip Goniometric Range of Motion Hip Measured in Degrees Right Passive Hip ROM WFL No Testing Position Supine Flexion w/Knee Flexed 85 Straight Leg Raise 75 Left Passive Hip ROM WFL No Testing Position Supine Flexion w/Knee Flexed 88 Straight Leg Raise 60 Hip ROM Limitations Comments Low back pain reproduced with PROM hip flexion bilaterally. PT-OP-L Special Tests Start: 06/22/18 08:52 Freq: Status: Active Protocol: Document 06/22/18 08:53 BS (Rec: 06/22/18 12:18 BS [email or web address]) Special Tests Lumbar Spine Special Tests Slump Test Results Negative Straight Leg Raise Test Results + Prone Knee Flexion Test Results + Comments I can feel my vertebrae moving on eachother PT-OP-M Strength Start: 06/22/18 08:52 Freq: Status: Active Protocol: Document 06/22/18 08:53 BS (Rec: 06/22/18 12:18 BS [email or web address]) Hip Strength Hip Manual Muscle Testing Right Flexion (L2) 4+ Good+ Extension (S1) 4 Good Abduction 5 Normal External Rotation 5 Normal Internal Rotation 5 Normal Comments No pain during MMT Left Flexion (L2) 4+ Good+ Extension (S1) 4 Good Abduction 5 Normal External Rotation 5 Normal Internal Rotation 5 Normal Comments No pain during MMT Knee Strength Knee Manual Muscle Testing Right Flexion (S2) 5 Normal Extension (L3) 5 Normal Comments No pain during MMT Left Flexion (S2) 5 Normal Extension (L3) 5 Normal Comments No pain during MMT Ankle/Foot Strength Ankle and Foot Manual Muscle Testing Right Dorsiflexion (L4) 5 Normal Plantarflexion (S1) 5 Normal Comments No pain during MMT Left Dorsiflexion (L4) 5 Normal Plantarflexion (S1) 5 Normal Comments No pain during MMT PT-OP-Q Treatments Start: 07/26/18 18:54 Freq: Status: Active Protocol: Document 07/26/18 11:00 DLM (Rec: 07/26/18 18:54 DLM [id number]) Self-Care/Home Management Treatment Education Patient Education Home Exercise Program Pain Management Other Education written HEP provided today, laminated card PT-OP-S Aquatic Treatment Start: 06/26/18 17:21 Freq: Status: Active Protocol: Document 08/02/18 11:00 LJ (Rec: 08/02/18 14:58 LJ [email or web address]) Aquatics Treatment Pool Entry/Exit Pool Entry/Exit Method Stairs Assistance Independent Water Walking quick directional changes Water Level Chest Level Walking Equipment Ankle Weight- 2.5# Comments all directions including stops soldier, lunge walk Water Level Waist Level Level of Assistance Verbal Cues Comments good posture, added #2.5 wts forward, backward, sideways Water Level Chest Level Walking Equipment Ankle Weight- 2.5# Level of Assistance Verbal Cues Lower Extremity Exercises flex/ext/ hs curl, ab/ad Body Position Standing Water Level Chest Level Reps/Duration 2 x10 reps Comments he does not like floats single leg squat bilat Water Level Waist Level Reps/Duration 10 each Comments good posture squats on sbottom stair Details hand hold Reps/Duration 15 Comments good posture and muscle activation Spinal Exercises Burpees Details at wall Water Level Neck Level Reps/Duration 7 each direction Comments cues to keep legs lower when extending stretch cord abdominal bracing Details 10 rotations each direction using both cords [place] Activities [place] Activities Bicycle [place] Running Hip Abduction/Adduction Other Activities bicycle with barbells held submerged at sides pendulum, front/back kick out bilat flutter kicking at wall prone to vertical plank with abdominal crunch supine flutter kick at wall Duration 20 Comments 4 sets 30'30' bicycling, ski, jog, jacks PT-OP-T Assessment and Plan Start: 06/22/18 08:52 Freq: Status: Active Protocol: Document 08/02/18 11:00 LISA (Rec: 08/02/18 14:58 LISA [email or web address]) Physical Therapy Assessment Impairments Impairments Activity Tolerance Functional Activities Functional Mobility Pain ROM Soft Tissue Mobility Strength Other Concerns Barriers to Rehabilitation chronic LBP, arthritis, aggressive form of prostate cancer per pt. Goals Two Impairment weakness Short Term Goal (STG) Pt to report reduction in pain intensity with less than 3/10 so that he is able to complete activities of daily living. STG Duration 6 weeks Assisted Goal (LTG) Bilateral hip extension and flexion to improve to at least 4+/5 to increase pt's ability to perform ADLs without limitations due to weakness. LTG Duration 10-12 weeks One Impairment strength Short Term Goal (STG) Pt to be able consistently walk greater than 2 blocks before experiencing low back pain or weakness in bilateral low extremities. STG Duration 8 weeks Food Mixer Assembler Goal (LTG) Pt to be independent with an aquatic program for lumbar stabilization and B LE strengthening and flexibility so that he can continue to engage in recreational exercise that does not exacerbate his chronic low back pain. LTG Duration 10-12 weeks Progress Towards Goals Progress Towards Goals Progressing Toward Goals Assessment Summary Assessment Continues to improve core strength and demonstrate better muscle activation and understanding of exercises. Pt still with flexed hips and protracted shoulders while walking and performing some exercises. Physical Therapy Plan Frequency and Duration Frequency of Treatment 2-3x/week Duration of Treatment 10-12 weeks Plan of Care Start Date 06/22/18 Plan of Care End Date 09/14/18 Therapeutic Interventions Therapeutic Interventions Aquatic Therapy Home Exercise Program Joint Mobilizations Manual Therapy Patient/Caregiver Education Soft Tissue Mobilization Taping Therapeutic Activities Therapeutic Exercises Next Visit Focus/Plan Next Note Type Treatment Note Next Visit Plan Pt instructed to begin walking on treadmill for 5 min prior to entering pool. Incorporate exercises to strengthen his upper back and posture. Continue to work on releasing tight hip flexors.
--- NOTE | 2018-08-07 14:27 | PT.OTN ---
Current Diagnoses Other chronic pain (08/07/18) Low back pain (08/07/18) Physical Therapy Treatment Note PT-OP-A Visit Information Start: 06/22/18 08:52 Freq: Status: Active Protocol: Document 08/07/18 11:00 LJ (Rec: 08/07/18 14:27 LJ [email or web address]) Out-Patient Physical Therapy Visit Information Visit Information Visit Type Aquatic Treatment Note Visit Start Time 11:00 Visit Stop Time 11:45 Total Visit Minutes 45 Visit Number 10 Number of CYLINDER MACHINE OPERATOR PULP DRIER Visits 4 PT-OP-B Current Condition Start: 06/22/18 08:52 Freq: Status: Active Protocol: Document 06/22/18 08:53 BS (Rec: 06/22/18 09:02 BS [email or web address]) Current Condition History of Current Condition Onset Date chronic Current Complaints Constant LBP History of Current Condition Pt complains of chronic and constant low back pain that increases with lifting heavy objects, prolonged sitting/ standing, exercise, mopping, vacuuming, and especially with walking uphill. Pt denies radicular symptoms, but reports he has had sciatica in the past. He states that he has had low back pain for 30+ years and that he has has arthritis, stenosis, and a herniated disc. Pt has seen many providers over the years to manage his pain, including massage therapy, physical therapy, acupuncture, chiropractice care, and he has had a lower lumbar fusion. Pt reports that he enjoys walking but that his low back pain significantly increases after about 2 blocks and that he notices more weakness in his legs. Pt states he is currently being treated for aggressive prostate cancer, which has affected his B LE strength. His plan to manage low back pain at this point is through combination of physical therapy aquatics, healthcare analyst, and acupuncture. Prior Treatments and Tests massage therapy, acupuncture, physical therapy, chiropractic . lumbar spine MRI: foraminal stenosis L1-L5, posterior disc herniation L2-3. Future Testing and Treatments Planned Pt plans to manage low back pain at this point through combination of physical therapy aquatics, healthcare analyst, and acupuncture. He prefers not to be land based exercise. Treatment Goals Patient/Caregiver Goals figure out a program I can do in the pool to strengthen my core, legs, and work on flexibility Prior Functional Status Baseline Function- ADL's Independent Baseline Function- Mobility Independent Baseline Function- Gait Independent without AD Baseline Function- Work/School Pt is retired, worked a desk job for many years. Baseline Function- Recreation/Hobbies Independent Baseline Function- Other Independent Current Functional Impairments (Reported) Functional Limitations- ADL's Low back pain with ifting objects, mopping, vacuuming, sweeping, prolonged standing/ sitting, and walking. Functional Limitations- Mobility/Gait Pt reports he used to be able to walk for an hour but is sometimes limited to 2 blocks now due to increased LBP. Functional Limitations- Recreation/ Pt enjoys go on walks and Hobbies exercising in the pool, these activities have been limited due to LBP. Personal Factors Other Personal Factors That May Effect chronic LBP, lumbar fusion, Therapy/Recovery arthritis PT-OP-C Subjective Start: 06/22/18 08:52 Freq: Status: Active Protocol: Document 08/07/18 11:00 LJ (Rec: 08/07/18 14:27 LJ [email or web address]) OP-PT Subjective Patient Comments Patient Comments Pt says he and his went for a 30 min walk yesterday and his back was starting to ache. Feels he is getting stronger in his core and glutes. States his quality of life is improving PT-OP-F Manual Assessment Start: 06/22/18 13:29 Freq: Status: Active Protocol: Document 06/22/18 08:53 BS (Rec: 06/22/18 13:30 BS [email or web address]) Manual Assessments Soft Tissue Assessment Soft Tissue Mobility Assessment Hypertonicity to B lumbar paraspinals, no tenderenss noted Joint Mobility Assessment Joint Mobility Assessment Stiffness and hypomibilty from L1-L5 with central and unilateral PAs. Pt denied pain with joint mobility assessment. PT-OP-G Mobility & Gait Start: 06/22/18 08:52 Freq: Status: Active Protocol: Document 06/22/18 08:53 BS (Rec: 06/22/18 13:28 BS [email or web address]) OP Mobility Evaluation Bed Mobility Rolling Independent Supine to and from Sit Independent, use of B UEs Transfers Sit to Stand Independent, use of B UEs to push up from chair OP Gait Assessment Gait Gait Assistance Required: Independent Able to Maintain Weight Bearing Status Yes During Gait Gait Deviations General Gait Pattern Within Normal Limits Flexed Trunk Comments Gait Comments slight trunk flexion with ambulation in clinic. PT-OP-J Posture/Palpation/Skin Start: 06/22/18 08:52 Freq: Status: Active Protocol: Document 06/22/18 08:53 BS (Rec: 06/22/18 13:28 BS [email or web address]) Posture Evaluation Position Sitting Evaluation View Posterior Head/C-Spine Posture Forward Head Shoulder Posture (R) Rounded (R) Forward Comments Posture Comments stands with slight trunk flexion. Palpation Assessment Location One Palpation Location Lumbar Parapsinals Palpation Findings Soft Tissue Tightness Palpation Details Hypertonicity and tightness with palpation to B paraspinals, no tenderness noted. PT-OP-K Range of Motion Start: 06/22/18 08:52 Freq: Status: Active Protocol: Document 06/22/18 08:53 BS (Rec: 06/22/18 12:18 BS [email or web address]) Lumbar Spine Range of Motion Lumbar Spine Active Testing Position Standing Flexion 60 Extension 20 Comments Moderatly limited in bilateral rotation and sidebending. Pt reports stiffness with all lumbar AROM and some discomfort in low back. Hip Goniometric Range of Motion Hip Right Passive Hip ROM WFL No Testing Position Supine Flexion w/Knee Flexed 85 Straight Leg Raise 75 Left Passive Hip ROM WFL No Testing Position Supine Flexion w/Knee Flexed 88 Straight Leg Raise 60 Hip ROM Limitations Comments Low back pain reproduced with PROM hip flexion bilaterally. PT-OP-L Special Tests Start: 06/22/18 08:52 Freq: Status: Active Protocol: Document 06/22/18 08:53 BS (Rec: 06/22/18 12:18 BS [email or web address]) Special Tests Lumbar Spine Special Tests Slump Test Results Negative Straight Leg Raise Test Results + Prone Knee Flexion Test Results + Comments I can feel my vertebrae moving on eachother PT-OP-M Strength Start: 06/22/18 08:52 Freq: Status: Active Protocol: Document 06/22/18 08:53 BS (Rec: 06/22/18 12:18 BS [email or web address]) Hip Strength Hip Manual Muscle Testing Right Flexion (L2) 4+ Good+ Extension (S1) 4 Good Abduction 5 Normal External Rotation 5 Normal Internal Rotation 5 Normal Comments No pain during MMT Left Flexion (L2) 4+ Good+ Extension (S1) 4 Good Abduction 5 Normal External Rotation 5 Normal Internal Rotation 5 Normal Comments No pain during MMT Knee Strength Knee Manual Muscle Testing Right Flexion (S2) 5 Normal Extension (L3) 5 Normal Comments No pain during MMT Left Flexion (S2) 5 Normal Extension (L3) 5 Normal Comments No pain during MMT Ankle/Foot Strength Ankle and Foot Manual Muscle Testing Right Dorsiflexion (L4) 5 Normal Plantarflexion (S1) 5 Normal Comments No pain during MMT Left Dorsiflexion (L4) 5 Normal Plantarflexion (S1) 5 Normal Comments No pain during MMT PT-OP-Q Treatments Start: 07/26/18 18:54 Freq: Status: Active Protocol: Document 07/26/18 11:00 DLM (Rec: 07/26/18 18:54 DLM [email or web address]) Self-Care/Home Management Treatment Education Patient Education Home Exercise Program Pain Management Other Education written HEP provided today, laminated card PT-OP-S Aquatic Treatment Start: 06/26/18 17:21 Freq: Status: Active Protocol: Document 08/07/18 11:00 LJ (Rec: 08/07/18 14:27 LJ [email or web address]) Aquatics Treatment Pool Entry/Exit Pool Entry/Exit Method Stairs Assistance Independent Water Walking quick directional changes Water Level Chest Level Walking Equipment Ankle Weight- 2.5# Comments all directions including stops soldier, lunge walk Water Level Waist Level Level of Assistance Verbal Cues Comments good posture, added #2.5 wts forward, backward, sideways Water Level Chest Level Walking Equipment Ankle Weight- 2.5# Level of Assistance Verbal Cues Lower Extremity Exercises step ups on boxes Details sideways abducting LEs Water Level Waist Level Equipment Ankle Weight- 2.5# Reps/Duration 2 x 10 bilat flex/ext/ hs curl, ab/ad Body Position Standing Water Level Chest Level Reps/Duration 2 x 20 reps Lower Extremity Stretches hip flexors Details standing at wall Water Level Chest Level hamstring, IT band, adductors, quads, hip flex Equipment lg noodle Reps/Duration 2x ea 30 sec Upper Extremity Exercises bent over rows Body Position Sitting Water Level Chest Level Equipment hydro bands Reps/Duration 10 bilat rows with hydro bands Body Position Sitting Water Level Chest Level Equipment hydro bands Reps/Duration 20 Comments cues for scapular retraction and posture Spinal Exercises Burpees Details at wall Water Level Neck Level Reps/Duration 10 each direction Comments cues to keep legs lower when extending stretch cord abdominal bracing Details 10 rotations each direction using both cords [place] Activities [place] Activities Bicycle Cross Country Running Other Activities pendulum, front/back kick out bilat flutter kicking at wall prone to vertical plank with abdominal crunch supine flutter kick at wall Duration 8 Comments 2 sets 30/30 jog ski PT-OP-T Assessment and Plan Start: 06/22/18 08:52 Freq: Status: Active Protocol: Document 08/07/18 11:00 LJ (Rec: 08/07/18 14:27 LJ [email or web address]) Physical Therapy Assessment Impairments Impairments Activity Tolerance Functional Activities Functional Mobility Pain ROM Soft Tissue Mobility Strength Other Concerns Barriers to Rehabilitation chronic LBP, arthritis, aggressive form of prostate cancer per pt. Goals Two Impairment weakness Short Term Goal (STG) Pt to report reduction in pain intensity with less than 3/10 so that he is able to complete activities of daily living. STG Duration 6 weeks Injection Wax Molder Goal (LTG) Bilateral hip extension and flexion to improve to at least 4+/5 to increase pt's ability to perform ADLs without limitations due to weakness. LTG Duration 10-12 weeks One Impairment strength Short Term Goal (STG) Pt to be able consistently walk greater than 2 blocks before experiencing low back pain or weakness in bilateral low extremities. STG Duration 8 weeks Injection Wax Molder Goal (LTG) Pt to be independent with an aquatic program for lumbar stabilization and B LE strengthening and flexibility so that he can continue to engage in recreational exercise that does not exacerbate his chronic low back pain. LTG Duration 10-12 weeks Progress Towards Goals Progress Towards Goals Progressing Toward Goals Assessment Summary Assessment Continues to improve core strength and demonstrate better muscle activation and understanding of exercises. Pt still with flexed hips and protracted shoulders while walking and performing some exercises. Physical Therapy Plan Frequency and Duration Frequency of Treatment 2-3x/week Duration of Treatment 10-12 weeks Plan of Care Start Date 06/22/18 Plan of Care End Date 09/14/18 Therapeutic Interventions Therapeutic Interventions Aquatic Therapy Home Exercise Program Joint Mobilizations Manual Therapy Patient/Caregiver Education Soft Tissue Mobilization Taping Therapeutic Activities Therapeutic Exercises Next Visit Focus/Plan Next Note Type Treatment Note Next Visit Plan Pt improving in strength and posture. Continue LE and core stabilization strength and add thoracic strengthening and posture exercises.
--- NOTE | 2018-08-09 16:21 | PT.OTN ---
Current Diagnoses Other chronic pain (08/09/18) Low back pain (08/09/18) Physical Therapy Treatment Note PT-OP-A Visit Information Start: 06/22/18 08:52 Freq: Status: Active Protocol: Document 08/09/18 16:17 SAK (Rec: 08/09/18 16:21 SAK [email or web address]) Out-Patient Physical Therapy Visit Information Visit Information Visit Type Aquatic Treatment Note Visit Start Time 11:00 Visit Stop Time 11:45 Total Visit Minutes 45 Visit Number 10 Number of RECRUITING COORDINATOR Visits 4 PT-OP-B Current Condition Start: 06/22/18 08:52 Freq: Status: Active Protocol: Document 06/22/18 08:53 BS (Rec: 06/22/18 09:02 BS [email or web address]) Current Condition History of Current Condition Onset Date chronic Current Complaints Constant LBP History of Current Condition Pt complains of chronic and constant low back pain that increases with lifting heavy objects, prolonged sitting/ standing, exercise, mopping, vacuuming, and especially with walking uphill. Pt denies radicular symptoms, but reports he has had sciatica in the past. He states that he has had low back pain for 30+ years and that he has has arthritis, stenosis, and a herniated disc. Pt has seen many providers over the years to manage his pain, including massage therapy, physical therapy, acupuncture, chiropractice care, and he has had a lower lumbar fusion. Pt reports that he enjoys walking but that his low back pain significantly increases after about 2 blocks and that he notices more weakness in his legs. Pt states he is currently being treated for aggressive prostate cancer, which has affected his B LE strength. His plan to manage low back pain at this point is through combination of physical therapy aquatics, care rep, and acupuncture. Prior Treatments and Tests massage therapy, acupuncture, physical therapy, chiropractic . lumbar spine MRI: foraminal stenosis L1-L5, posterior disc herniation L2-3. Future Testing and Treatments Planned Pt plans to manage low back pain at this point through combination of physical therapy aquatics, care rep, and acupuncture. He prefers not to be land based exercise. Treatment Goals Patient/Caregiver Goals figure out a program I can do in the pool to strengthen my core, legs, and work on flexibility Prior Functional Status Baseline Function- ADL's Independent Baseline Function- Mobility Independent Baseline Function- Gait Independent without AD Baseline Function- Work/School Pt is retired, worked a desk job for many years. Baseline Function- Recreation/Hobbies Independent Baseline Function- Other Independent Current Functional Impairments (Reported) Functional Limitations- ADL's Low back pain with ifting objects, mopping, vacuuming, sweeping, prolonged standing/ sitting, and walking. Functional Limitations- Mobility/Gait Pt reports he used to be able to walk for an hour but is sometimes limited to 2 blocks now due to increased LBP. Functional Limitations- Recreation/ Pt enjoys go on walks and Hobbies exercising in the pool, these activities have been limited due to LBP. Personal Factors Other Personal Factors That May Effect chronic LBP, lumbar fusion, Therapy/Recovery arthritis PT-OP-C Subjective Start: 06/22/18 08:52 Freq: Status: Active Protocol: Document 08/09/18 16:17 SAK (Rec: 08/09/18 16:21 SAK [id number]) OP-PT Subjective Patient Comments Patient Comments Patient reports he feels stronger, but still limited in his walking ability. PT-OP-F Manual Assessment Start: 06/22/18 13:29 Freq: Status: Active Protocol: Document 06/22/18 08:53 BS (Rec: 06/22/18 13:30 BS [email or web address]) Manual Assessments Soft Tissue Assessment Soft Tissue Mobility Assessment Hypertonicity to B lumbar paraspinals, no tenderenss noted Joint Mobility Assessment Joint Mobility Assessment Stiffness and hypomibilty from L1-L5 with central and unilateral PAs. Pt denied pain with joint mobility assessment. PT-OP-G Mobility & Gait Start: 06/22/18 08:52 Freq: Status: Active Protocol: Document 06/22/18 08:53 BS (Rec: 06/22/18 13:28 BS [email or web address]) OP Mobility Evaluation Bed Mobility Rolling Independent Supine to and from Sit Independent, use of B UEs Transfers Sit to Stand Independent, use of B UEs to push up from chair OP Gait Assessment Gait Gait Assistance Required: Independent Able to Maintain Weight Bearing Status Yes During Gait Gait Deviations General Gait Pattern Within Normal Limits Flexed Trunk Comments Gait Comments slight trunk flexion with ambulation in clinic. PT-OP-J Posture/Palpation/Skin Start: 06/22/18 08:52 Freq: Status: Active Protocol: Document 06/22/18 08:53 BS (Rec: 06/22/18 13:28 BS [email or web address]) Posture Evaluation Position Sitting Evaluation View Posterior Head/C-Spine Posture Forward Head Shoulder Posture (R) Rounded (R) Forward Comments Posture Comments stands with slight trunk flexion. Palpation Assessment Location One Palpation Location Lumbar Parapsinals Palpation Findings Soft Tissue Tightness Palpation Details Hypertonicity and tightness with palpation to B paraspinals, no tenderness noted. PT-OP-K Range of Motion Start: 06/22/18 08:52 Freq: Status: Active Protocol: Document 06/22/18 08:53 BS (Rec: 06/22/18 12:18 BS [email or web address]) Lumbar Spine Range of Motion Lumbar Spine Active Testing Position Standing Flexion 60 Extension 20 Comments Moderatly limited in bilateral rotation and sidebending. Pt reports stiffness with all lumbar AROM and some discomfort in low back. Hip Goniometric Range of Motion Hip Right Passive Hip ROM WFL No Testing Position Supine Flexion w/Knee Flexed 85 Straight Leg Raise 75 Left Passive Hip ROM WFL No Testing Position Supine Flexion w/Knee Flexed 88 Straight Leg Raise 60 Hip ROM Limitations Comments Low back pain reproduced with PROM hip flexion bilaterally. PT-OP-L Special Tests Start: 06/22/18 08:52 Freq: Status: Active Protocol: Document 06/22/18 08:53 BS (Rec: 06/22/18 12:18 BS [email or web address]) Special Tests Lumbar Spine Special Tests Slump Test Results Negative Straight Leg Raise Test Results + Prone Knee Flexion Test Results + Comments I can feel my vertebrae moving on eachother PT-OP-M Strength Start: 06/22/18 08:52 Freq: Status: Active Protocol: Document 06/22/18 08:53 BS (Rec: 06/22/18 12:18 BS [email or web address]) Hip Strength Hip Manual Muscle Testing Right Flexion (L2) 4+ Good+ Extension (S1) 4 Good Abduction 5 Normal External Rotation 5 Normal Internal Rotation 5 Normal Comments No pain during MMT Left Flexion (L2) 4+ Good+ Extension (S1) 4 Good Abduction 5 Normal External Rotation 5 Normal Internal Rotation 5 Normal Comments No pain during MMT Knee Strength Knee Manual Muscle Testing Right Flexion (S2) 5 Normal Extension (L3) 5 Normal Comments No pain during MMT Left Flexion (S2) 5 Normal Extension (L3) 5 Normal Comments No pain during MMT Ankle/Foot Strength Ankle and Foot Manual Muscle Testing Right Dorsiflexion (L4) 5 Normal Plantarflexion (S1) 5 Normal Comments No pain during MMT Left Dorsiflexion (L4) 5 Normal Plantarflexion (S1) 5 Normal Comments No pain during MMT PT-OP-Q Treatments Start: 07/26/18 18:54 Freq: Status: Active Protocol: Document 07/26/18 11:00 DLM (Rec: 07/26/18 18:54 DLM [id number]) Self-Care/Home Management Treatment Education Patient Education Home Exercise Program Pain Management Other Education written HEP provided today, laminated card PT-OP-S Aquatic Treatment Start: 06/26/18 17:21 Freq: Status: Active Protocol: Document 08/09/18 16:17 SAK (Rec: 08/09/18 16:21 SAK [id number]) Aquatics Treatment Pool Entry/Exit Pool Entry/Exit Method Stairs Assistance Independent Water Walking quick directional changes Water Level Chest Level Walking Equipment Ankle Weight- 2.5# Comments all directions including stops soldier, lunge walk Water Level Waist Level Level of Assistance Verbal Cues Comments good posture, added #2.5 wts forward, backward, sideways Water Level Chest Level Walking Equipment Ankle Weight- 2.5# Level of Assistance Verbal Cues Lower Extremity Exercises step ups on boxes Details sideways abducting LEs Water Level Waist Level Equipment Ankle Weight- 2.5# Reps/Duration 2 x 10 bilat flex/ext/ hs curl, ab/ad Body Position Standing Water Level Chest Level Reps/Duration 2 x 20 reps Lower Extremity Stretches SKTW Details glute and piriformis stretch Body Position Standing Water Level Chest Level Reps/Duration 2x bilat 30 sec hamstring, IT band, adductors, quads, hip flex Equipment lg noodle Reps/Duration 2x ea 30 sec Upper Extremity Exercises bent over rows Body Position Sitting Water Level Chest Level Equipment hydro bands Reps/Duration 10 bilat rows with hydro bands Body Position Sitting Water Level Chest Level Equipment hydro bands Reps/Duration 20 Comments cues for scapular retraction and posture Spinal Exercises [place] Details at wall Water Level Neck Level Reps/Duration 10 each direction Comments cues to keep legs lower when extending stretch cord abdominal bracing Details 10 rotations each direction using both cords [place] Activities [place] Activities Bicycle Cross Country Running Other Activities pendulum, front/back kick out bilat flutter kicking at wall prone to vertical plank with abdominal crunch supine flutter kick at wall backward bicycle holding barbells Duration 8 Comments 5 sets 30/30 jog ski PT-OP-T Assessment and Plan Start: 06/22/18 08:52 Freq: Status: Active Protocol: Document 08/09/18 16:17 [facility] (Rec: 08/09/18 16:21 [facility] [id number]) Physical Therapy Assessment Impairments Impairments Activity Tolerance Functional Activities Functional Mobility Pain ROM Soft Tissue Mobility Strength Other Concerns Barriers to Rehabilitation chronic LBP, arthritis, aggressive form of prostate cancer per pt. Goals Two Impairment weakness Short Term Goal (STG) Pt to report reduction in pain intensity with less than 3/10 so that he is able to complete activities of daily living. STG Duration 6 weeks Sleep Technologist Goal (LTG) Bilateral hip extension and flexion to improve to at least 4+/5 to increase pt's ability to perform ADLs without limitations due to weakness. LTG Duration 10-12 weeks One Impairment strength Short Term Goal (STG) Pt to be able consistently walk greater than 2 blocks before experiencing low back pain or weakness in bilateral low extremities. STG Duration 8 weeks Sleep Technologist Goal (LTG) Pt to be independent with an aquatic program for lumbar stabilization and B LE strengthening and flexibility so that he can continue to engage in recreational exercise that does not exacerbate his chronic low back pain. LTG Duration 10-12 weeks Progress Towards Goals Progress Towards Goals Progressing Toward Goals Assessment Summary Assessment Improving strength, walking a little more but still limited by pain requiring frequent rest to sit/stretch. Verbal and manual cues for correct muscle activation and postural alignment. Discussed work-out plan of aquatic ex 3x/wk, weight- lifting 2x/wk, walking as able . Physical Therapy Plan Frequency and Duration Frequency of Treatment 2-3x/week Duration of Treatment 10-12 weeks Plan of Care Start Date 06/22/18 Plan of Care End Date 09/14/18 Therapeutic Interventions Therapeutic Interventions Aquatic Therapy Home Exercise Program Joint Mobilizations Manual Therapy Patient/Caregiver Education Soft Tissue Mobilization Taping Therapeutic Activities Therapeutic Exercises Next Visit Focus/Plan Next Note Type Treatment Note Next Visit Plan Progress aquatic ex as tolerated. Anticipate 2 further aquatic PT treatments then discharge to independent aquatic exercise program.
--- NOTE | 2018-08-14 14:46 | PT.OTN ---
Current Diagnoses Other chronic pain (08/09/18) Low back pain (08/09/18) Physical Therapy Treatment Note PT-OP-A Visit Information Start: 06/22/18 08:52 Freq: Status: Active Protocol: Document 08/14/18 11:00 LJ (Rec: 08/14/18 14:46 LJ [email or web address]) Out-Patient Physical Therapy Visit Information Visit Information Visit Type Aquatic Treatment Note Visit Start Time 11:00 Visit Stop Time 11:45 Total Visit Minutes 45 Visit Number 11 Number of OIL PIPE INSPECTOR Visits 5 PT-OP-B Current Condition Start: 06/22/18 08:52 Freq: Status: Active Protocol: Document 06/22/18 08:53 BS (Rec: 06/22/18 09:02 BS [email or web address]) Current Condition History of Current Condition Onset Date chronic Current Complaints Constant LBP History of Current Condition Pt complains of chronic and constant low back pain that increases with lifting heavy objects, prolonged sitting/ standing, exercise, mopping, vacuuming, and especially with walking uphill. Pt denies radicular symptoms, but reports he has had sciatica in the past. He states that he has had low back pain for 30+ years and that he has has arthritis, stenosis, and a herniated disc. Pt has seen many providers over the years to manage his pain, including massage therapy, physical therapy, acupuncture, chiropractice care, and he has had a lower lumbar fusion. Pt reports that he enjoys walking but that his low back pain significantly increases after about 2 blocks and that he notices more weakness in his legs. Pt states he is currently being treated for aggressive prostate cancer, which has affected his B LE strength. His plan to manage low back pain at this point is through combination of physical therapy aquatics, spiritual care coordinator, and acupuncture. Prior Treatments and Tests massage therapy, acupuncture, physical therapy, chiropractic . lumbar spine MRI: foraminal stenosis L1-L5, posterior disc herniation L2-3. Future Testing and Treatments Planned Pt plans to manage low back pain at this point through combination of physical therapy aquatics, spiritual care coordinator, and acupuncture. He prefers not to be land based exercise. Treatment Goals Patient/Caregiver Goals figure out a program I can do in the pool to strengthen my core, legs, and work on flexibility Prior Functional Status Baseline Function- ADL's Independent Baseline Function- Mobility Independent Baseline Function- Gait Independent without AD Baseline Function- Work/School Pt is retired, worked a desk job for many years. Baseline Function- Recreation/Hobbies Independent Baseline Function- Other Independent Current Functional Impairments (Reported) Functional Limitations- ADL's Low back pain with ifting objects, mopping, vacuuming, sweeping, prolonged standing/ sitting, and walking. Functional Limitations- Mobility/Gait Pt reports he used to be able to walk for an hour but is sometimes limited to 2 blocks now due to increased LBP. Functional Limitations- Recreation/ Pt enjoys go on walks and Hobbies exercising in the pool, these activities have been limited due to LBP. Personal Factors Other Personal Factors That May Effect chronic LBP, lumbar fusion, Therapy/Recovery arthritis PT-OP-C Subjective Start: 06/22/18 08:52 Freq: Status: Active Protocol: Document 08/14/18 11:00 LJ (Rec: 08/14/18 14:46 LJ [email or web address]) OP-PT Subjective Patient Comments Patient Comments Pt feels he is getting much stronger and wants to transition to some land based exercise PT-OP-F Manual Assessment Start: 06/22/18 13:29 Freq: Status: Active Protocol: Document 06/22/18 08:53 BS (Rec: 06/22/18 13:30 BS [email or web address]) Manual Assessments Soft Tissue Assessment Soft Tissue Mobility Assessment Hypertonicity to B lumbar paraspinals, no tenderenss noted Joint Mobility Assessment Joint Mobility Assessment Stiffness and hypomibilty from L1-L5 with central and unilateral PAs. Pt denied pain with joint mobility assessment. PT-OP-G Mobility & Gait Start: 06/22/18 08:52 Freq: Status: Active Protocol: Document 06/22/18 08:53 BS (Rec: 06/22/18 13:28 BS [email or web address]) OP Mobility Evaluation Bed Mobility Rolling Independent Supine to and from Sit Independent, use of B UEs Transfers Sit to Stand Independent, use of B UEs to push up from chair OP Gait Assessment Gait Gait Assistance Required: Independent Able to Maintain Weight Bearing Status Yes During Gait Gait Deviations General Gait Pattern Within Normal Limits Flexed Trunk Comments Gait Comments slight trunk flexion with ambulation in clinic. PT-OP-J Posture/Palpation/Skin Start: 06/22/18 08:52 Freq: Status: Active Protocol: Document 06/22/18 08:53 BS (Rec: 06/22/18 13:28 BS [email or web address]) Posture Evaluation Position Sitting Evaluation View Posterior Head/C-Spine Posture Forward Head Shoulder Posture (R) Rounded (R) Forward Comments Posture Comments stands with slight trunk flexion. Palpation Assessment Location One Palpation Location Lumbar Parapsinals Palpation Findings Soft Tissue Tightness Palpation Details Hypertonicity and tightness with palpation to B paraspinals, no tenderness noted. PT-OP-K Range of Motion Start: 06/22/18 08:52 Freq: Status: Active Protocol: Document 06/22/18 08:53 BS (Rec: 06/22/18 12:18 BS [email or web address]) Lumbar Spine Range of Motion Lumbar Spine Active Testing Position Standing Flexion 60 Extension 20 Comments Moderatly limited in bilateral rotation and sidebending. Pt reports stiffness with all lumbar AROM and some discomfort in low back. Hip Goniometric Range of Motion Hip Right Passive Hip ROM WFL No Testing Position Supine Flexion w/Knee Flexed 85 Straight Leg Raise 75 Left Passive Hip ROM WFL No Testing Position Supine Flexion w/Knee Flexed 88 Straight Leg Raise 60 Hip ROM Limitations Comments Low back pain reproduced with PROM hip flexion bilaterally. PT-OP-L Special Tests Start: 06/22/18 08:52 Freq: Status: Active Protocol: Document 06/22/18 08:53 BS (Rec: 06/22/18 12:18 BS [email or web address]) Special Tests Lumbar Spine Special Tests Slump Test Results Negative Straight Leg Raise Test Results + Prone Knee Flexion Test Results + Comments I can feel my vertebrae moving on eachother PT-OP-M Strength Start: 06/22/18 08:52 Freq: Status: Active Protocol: Document 06/22/18 08:53 BS (Rec: 06/22/18 12:18 BS [email or web address]) Hip Strength Hip Manual Muscle Testing Right Flexion (L2) 4+ Good+ Extension (S1) 4 Good Abduction 5 Normal External Rotation 5 Normal Internal Rotation 5 Normal Comments No pain during MMT Left Flexion (L2) 4+ Good+ Extension (S1) 4 Good Abduction 5 Normal External Rotation 5 Normal Internal Rotation 5 Normal Comments No pain during MMT Knee Strength Knee Manual Muscle Testing Right Flexion (S2) 5 Normal Extension (L3) 5 Normal Comments No pain during MMT Left Flexion (S2) 5 Normal Extension (L3) 5 Normal Comments No pain during MMT Ankle/Foot Strength Ankle and Foot Manual Muscle Testing Right Dorsiflexion (L4) 5 Normal Plantarflexion (S1) 5 Normal Comments No pain during MMT Left Dorsiflexion (L4) 5 Normal Plantarflexion (S1) 5 Normal Comments No pain during MMT PT-OP-Q Treatments Start: 07/26/18 18:54 Freq: Status: Active Protocol: Document 07/26/18 11:00 DLM (Rec: 07/26/18 18:54 DLM [id number]) Self-Care/Home Management Treatment Education Patient Education Home Exercise Program Pain Management Other Education written HEP provided today, laminated card PT-OP-S Aquatic Treatment Start: 06/26/18 17:21 Freq: Status: Active Protocol: Document 08/14/18 11:00 LJ (Rec: 08/14/18 14:46 LJ [email or web address]) Aquatics Treatment Pool Entry/Exit Pool Entry/Exit Method Stairs Assistance Independent Water Walking quick directional changes Water Level Chest Level Walking Equipment Ankle Weight- 2.5# Comments all directions including stops soldier, lunge walk Water Level Waist Level Level of Assistance Verbal Cues Comments good posture, added #2.5 wts forward, backward, sideways Water Level Chest Level Walking Equipment Ankle Weight- 2.5# Level of Assistance Verbal Cues Lower Extremity Exercises Adduction with hydrobands Body Position Standing Water Level Chest Level Equipment hydrobands Reps/Duration 2x10 Comments wrapped around ankle flex/ext/ hs curl, ab/ad Body Position Standing Water Level Chest Level Reps/Duration 2 x 20 reps Lower Extremity Stretches hip flexors Details standing at wall Water Level Chest Level SKTW Details glute and piriformis stretch Body Position Standing Water Level Chest Level Reps/Duration 2x bilat 30 sec hamstring, IT band, adductors, quads, hip flex Equipment lg noodle Reps/Duration 2x ea 30 sec Spinal Exercises [place]pees Details at wall Water Level Neck Level Reps/Duration 10 each direction Comments modified to vertical abdominal curl stretch cord abdominal bracing Details 10 rotations each direction using both cords Balance slow walking-forward and backward Water Level Chest Level Reps/Duration 2 laps [place] Activities [place] Activities Bicycle Bicycle Backwards Cross [place] Running Hip Abduction/Adduction Other Activities pendulum, front/back kick out bilat flutter kicking at wall prone to vertical plank with abdominal crunch supine flutter kick at wall backward bicycle holding barbells Duration 8 Comments 4 sets eachm 30/15 jog ski PT-OP-T Assessment and Plan Start: 06/22/18 08:52 Freq: Status: Active Protocol: Document 08/14/18 11:00 LISA (Rec: 08/14/18 14:46 LISA [email or web address]) Physical Therapy Assessment Impairments Impairments Activity Tolerance Functional Activities Functional Mobility Pain ROM Soft Tissue Mobility Strength Other Concerns Barriers to Rehabilitation chronic LBP, arthritis, aggressive form of prostate cancer per pt. Goals Two Impairment weakness Short Term Goal (STG) Pt to report reduction in pain intensity with less than 3/10 so that he is able to complete activities of daily living. STG Duration 6 weeks Senior Living Goal (LTG) Bilateral hip extension and flexion to improve to at least 4+/5 to increase pt's ability to perform ADLs without limitations due to weakness. LTG Duration 10-12 weeks One Impairment strength Short Term Goal (STG) Pt to be able consistently walk greater than 2 blocks before experiencing low back pain or weakness in bilateral low extremities. STG Duration 8 weeks Senior Living Goal (LTG) Pt to be independent with an aquatic program for lumbar stabilization and B LE strengthening and flexibility so that he can continue to engage in recreational exercise that does not exacerbate his chronic low back pain. LTG Duration 10-12 weeks Progress Towards Goals Progress Towards Goals Progressing Toward Goals Assessment Summary Assessment Pt demonstrating better posture with cuing this session. Tolerated increase in deep water intensity with no increase in pain. Physical Therapy Plan Frequency and Duration Frequency of Treatment 2-3x/week Duration of Treatment 10-12 weeks Plan of Care Start Date 06/22/18 Plan of Care End Date 09/14/18 Therapeutic Interventions Therapeutic Interventions Aquatic Therapy Home Exercise Program Joint Mobilizations Manual Therapy Patient/Caregiver Education Soft Tissue Mobilization Taping Therapeutic Activities Therapeutic Exercises Next Visit Focus/Plan Next Note Type Treatment Note Next Visit Plan Progress aquatic ex as tolerated. Anticipate more aquatic PT treatments then discharge to independent aquatic exercise program.
--- NOTE | 2018-08-16 13:07 | PT.OTN ---
Current Diagnoses Other chronic pain (08/14/18) Low back pain (08/14/18) Physical Therapy Treatment Note PT-OP-A Visit Information Start: 06/22/18 08:52 Freq: Status: Active Protocol: Document 08/16/18 10:15 LJ (Rec: 08/16/18 13:07 LJ [email or web address]) Out-Patient Physical Therapy Visit Information Visit Information Visit Type Aquatic Treatment Note Visit Start Time 10:15 Visit Stop Time 11:00 Total Visit Minutes 45 Visit Number 12 Number of SALES LEAD GENERATOR Visits 2 PT-OP-B Current Condition Start: 06/22/18 08:52 Freq: Status: Active Protocol: Document 06/22/18 08:53 BS (Rec: 06/22/18 09:02 BS [email or web address]) Current Condition History of Current Condition Onset Date chronic Current Complaints Constant LBP History of Current Condition Pt complains of chronic and constant low back pain that increases with lifting heavy objects, prolonged sitting/ standing, exercise, mopping, vacuuming, and especially with walking uphill. Pt denies radicular symptoms, but reports he has had sciatica in the past. He states that he has had low back pain for 30+ years and that he has has arthritis, stenosis, and a herniated disc. Pt has seen many providers over the years to manage his pain, including massage therapy, physical therapy, acupuncture, chiropractice care, and he has had a lower lumbar fusion. Pt reports that he enjoys walking but that his low back pain significantly increases after about 2 blocks and that he notices more weakness in his legs. Pt states he is currently being treated for aggressive prostate cancer, which has affected his B LE strength. His plan to manage low back pain at this point is through combination of physical therapy aquatics, skin care instructor, and acupuncture. Prior Treatments and Tests massage therapy, acupuncture, physical therapy, chiropractic . lumbar spine MRI: foraminal stenosis L1-L5, posterior disc herniation L2-3. Future Testing and Treatments Planned Pt plans to manage low back pain at this point through combination of physical therapy aquatics, skin care instructor, and acupuncture. He prefers not to be land based exercise. Treatment Goals Patient/Caregiver Goals figure out a program I can do in the pool to strengthen my core, legs, and work on flexibility Prior Functional Status Baseline Function- ADL's Independent Baseline Function- Mobility Independent Baseline Function- Gait Independent without AD Baseline Function- Work/School Pt is retired, worked a desk job for many years. Baseline Function- Recreation/Hobbies Independent Baseline Function- Other Independent Current Functional Impairments (Reported) Functional Limitations- ADL's Low back pain with ifting objects, mopping, vacuuming, sweeping, prolonged standing/ sitting, and walking. Functional Limitations- Mobility/Gait Pt reports he used to be able to walk for an hour but is sometimes limited to 2 blocks now due to increased LBP. Functional Limitations- Recreation/ Pt enjoys go on walks and Hobbies exercising in the pool, these activities have been limited due to LBP. Personal Factors Other Personal Factors That May Effect chronic LBP, lumbar fusion, Therapy/Recovery arthritis PT-OP-C Subjective Start: 06/22/18 08:52 Freq: Status: Active Protocol: Document 08/16/18 10:15 LJ (Rec: 08/16/18 13:07 LJ [email or web address]) OP-PT Subjective Patient Comments Patient Comments Pt feels he is getting much stronger and wants to transition to some land based exercise. Hoping land based will increase his ability to increase walking distance. PT-OP-F Manual Assessment Start: 06/22/18 13:29 Freq: Status: Active Protocol: Document 06/22/18 08:53 BS (Rec: 06/22/18 13:30 BS [email or web address]) Manual Assessments Soft Tissue Assessment Soft Tissue Mobility Assessment Hypertonicity to B lumbar paraspinals, no tenderenss noted Joint Mobility Assessment Joint Mobility Assessment Stiffness and hypomibilty from L1-L5 with central and unilateral PAs. Pt denied pain with joint mobility assessment. PT-OP-G Mobility & Gait Start: 06/22/18 08:52 Freq: Status: Active Protocol: Document 06/22/18 08:53 BS (Rec: 06/22/18 13:28 BS [email or web address]) OP Mobility Evaluation Bed Mobility Rolling Independent Supine to and from Sit Independent, use of B UEs Transfers Sit to Stand Independent, use of B UEs to push up from chair OP Gait Assessment Gait Gait Assistance Required: Independent Able to Maintain Weight Bearing Status Yes During Gait Gait Deviations General Gait Pattern Within Normal Limits Flexed Trunk Comments Gait Comments slight trunk flexion with ambulation in clinic. PT-OP-J Posture/Palpation/Skin Start: 06/22/18 08:52 Freq: Status: Active Protocol: Document 06/22/18 08:53 BS (Rec: 06/22/18 13:28 BS [email or web address]) Posture Evaluation Position Sitting Evaluation View Posterior Head/C-Spine Posture Forward Head Shoulder Posture (R) Rounded (R) Forward Comments Posture Comments stands with slight trunk flexion. Palpation Assessment Location One Palpation Location Lumbar Parapsinals Palpation Findings Soft Tissue Tightness Palpation Details Hypertonicity and tightness with palpation to B paraspinals, no tenderness noted. PT-OP-K Range of Motion Start: 06/22/18 08:52 Freq: Status: Active Protocol: Document 06/22/18 08:53 BS (Rec: 06/22/18 12:18 BS [email or web address]) Lumbar Spine Range of Motion Lumbar Spine Active Testing Position Standing Flexion 60 Extension 20 Comments Moderatly limited in bilateral rotation and sidebending. Pt reports stiffness with all lumbar AROM and some discomfort in low back. Hip Goniometric Range of Motion Hip Right Passive Hip ROM WFL No Testing Position Supine Flexion w/Knee Flexed 85 Straight Leg Raise 75 Left Passive Hip ROM WFL No Testing Position Supine Flexion w/Knee Flexed 88 Straight Leg Raise 60 Hip ROM Limitations Comments Low back pain reproduced with PROM hip flexion bilaterally. PT-OP-L Special Tests Start: 06/22/18 08:52 Freq: Status: Active Protocol: Document 06/22/18 08:53 BS (Rec: 06/22/18 12:18 BS [email or web address]) Special Tests Lumbar Spine Special Tests Slump Test Results Negative Straight Leg Raise Test Results + Prone Knee Flexion Test Results + Comments I can feel my vertebrae moving on eachother PT-OP-M Strength Start: 06/22/18 08:52 Freq: Status: Active Protocol: Document 06/22/18 08:53 BS (Rec: 06/22/18 12:18 BS [email or web address]) Hip Strength Hip Manual Muscle Testing Right Flexion (L2) 4+ Good+ Extension (S1) 4 Good Abduction 5 Normal External Rotation 5 Normal Internal Rotation 5 Normal Comments No pain during MMT Left Flexion (L2) 4+ Good+ Extension (S1) 4 Good Abduction 5 Normal External Rotation 5 Normal Internal Rotation 5 Normal Comments No pain during MMT Knee Strength Knee Manual Muscle Testing Right Flexion (S2) 5 Normal Extension (L3) 5 Normal Comments No pain during MMT Left Flexion (S2) 5 Normal Extension (L3) 5 Normal Comments No pain during MMT Ankle/Foot Strength Ankle and Foot Manual Muscle Testing Right Dorsiflexion (L4) 5 Normal Plantarflexion (S1) 5 Normal Comments No pain during MMT Left Dorsiflexion (L4) 5 Normal Plantarflexion (S1) 5 Normal Comments No pain during MMT PT-OP-Q Treatments Start: 07/26/18 18:54 Freq: Status: Active Protocol: Document 07/26/18 11:00 DLM (Rec: 07/26/18 18:54 DLM [id number]) Self-Care/Home Management Treatment Education Patient Education Home Exercise Program Pain Management Other Education written HEP provided today, laminated card PT-OP-S Aquatic Treatment Start: 06/26/18 17:21 Freq: Status: Active Protocol: Document 08/16/18 10:15 LJ (Rec: 08/16/18 13:07 LJ [email or web address]) Aquatics Treatment Pool Entry/Exit Pool Entry/Exit Method Stairs Assistance Independent Water Walking quick directional changes Water Level Chest Level Walking Equipment Ankle Weight- 2.5# Comments all directions including stops soldier, lunge walk Water Level Waist Level Level of Assistance Verbal Cues Comments good posture, added #2.5 wts forward, backward, sideways Water Level Chest Level Walking Equipment Ankle Weight- 2.5# Level of Assistance Verbal Cues Lower Extremity Exercises flex/ext/ hs curl, ab/ad Body Position Standing Water Level Chest Level Reps/Duration 2 x 20 reps Lower Extremity Stretches hamstring, IT band, adductors, quads, hip flex Equipment lg noodle Reps/Duration 2x ea 30 sec Upper Extremity Exercises ER bilateral Body Position Standing Water Level Chest Level Equipment stretch cords Reps/Duration 2x10 Comments cuing for no elbow ext rows with hydro bands Body Position Sitting Water Level Chest Level Equipment hydro bands Reps/Duration 20 Comments cues for scapular retraction and posture UE pull downs unilat Body Position Standing Water Level Chest Level Equipment stretch cords Reps/Duration 2x10 Comments improved posture Spinal Exercises stretch cord abdominal bracing Details 15 rotations each direction using both cords Balance standing on white noodle in deep Water Level [place] Equipment white noodle Reps/Duration 5 min Comments static and dynamic slow walking-forward and backward Water Level Chest Level Reps/Duration 2 laps [place] Activities Other Activities pendulum, front/back kick out bilat flutter kicking at wall prone to vertical plank with abdominal crunch supine flutter kick at wall backward bicycle holding barbells PT-OP-T Assessment and Plan Start: 06/22/18 08:52 Freq: Status: Active Protocol: Document 08/16/18 10:15 LISA (Rec: 08/16/18 13:07 LISA [email or web address]) Physical Therapy Assessment Impairments Impairments Activity Tolerance Functional Activities Functional Mobility Pain ROM Soft Tissue Mobility Strength Other Concerns Barriers to Rehabilitation chronic LBP, arthritis, aggressive form of prostate cancer per pt. Goals Two Impairment weakness Short Term Goal (STG) Pt to report reduction in pain intensity with less than 3/10 so that he is able to complete activities of daily living. STG Duration 6 weeks Longterm Goal (LTG) Bilateral hip extension and flexion to improve to at least 4+/5 to increase pt's ability to perform ADLs without limitations due to weakness. LTG Duration 10-12 weeks One Impairment strength Short Term Goal (STG) Pt to be able consistently walk greater than 2 blocks before experiencing low back pain or weakness in bilateral low extremities. STG Duration 8 weeks Longterm Goal (LTG) Pt to be independent with an aquatic program for lumbar stabilization and B LE strengthening and flexibility so that he can continue to engage in recreational exercise that does not exacerbate his chronic low back pain. LTG Duration 10-12 weeks Progress Towards Goals Progress Towards Goals Progressing Toward Goals Assessment Summary Assessment Pt posture improving. Hip flexor stretching becoming more effective as pt is able to perform independently with noodle. Posture and muscle activation has improved. Physical Therapy Plan Frequency and Duration Frequency of Treatment 2-3x/week Duration of Treatment 10-12 weeks Plan of Care Start Date 06/22/18 Plan of Care End Date 09/14/18 Therapeutic Interventions Therapeutic Interventions Aquatic Therapy Home Exercise Program Joint Mobilizations Manual Therapy Patient/Caregiver Education Soft Tissue Mobilization Taping Therapeutic Activities Therapeutic Exercises Next Visit Focus/Plan Next Visit Plan DC pt to community based exercise and HEP.
--- NOTE | 2018-10-24 10:14 | PT.OPDS ---
Current Diagnoses Other chronic pain (08/16/18) Low back pain (08/16/18) Visit Care Team Role Provider Type Dc Summers MD Attending Provider Physician Primary Care Provider Specialty: Internal Medicine Address: [address] [place] [address], [address], [place], [address] Email: [email or web address] Visit Number Visit Number [id number] Discharge Summary PT-OP-B Current Condition Start: 06/22/18 08:52 Freq: Status: Active Protocol: Document 06/22/18 08:53 BS (Rec: 06/22/18 09:02 BS [email or web address]) Current Condition History of Current Condition Onset Date chronic Current Complaints Constant LBP History of Current Condition Pt complains of chronic and constant low back pain that increases with lifting heavy objects, prolonged sitting/ standing, exercise, mopping, vacuuming, and especially with walking uphill. Pt denies radicular symptoms, but reports he has had sciatica in the past. He states that he has had low back pain for 30+ years and that he has has arthritis, stenosis, and a herniated disc. Pt has seen many providers over the years to manage his pain, including massage therapy, physical therapy, acupuncture, chiropractice care, and he has had a lower lumbar fusion. Pt reports that he enjoys walking but that his low back pain significantly increases after about 2 blocks and that he notices more weakness in his legs. Pt states he is currently being treated for aggressive prostate cancer, which has affected his B LE strength. His plan to manage low back pain at this point is through combination of physical therapy aquatics, direct care worker, and acupuncture. Prior Treatments and Tests massage therapy, acupuncture, physical therapy, chiropractic . lumbar spine MRI: foraminal stenosis L1-L5, posterior disc herniation L2-3. Future Testing and Treatments Planned Pt plans to manage low back pain at this point through combination of physical therapy aquatics, direct care worker, and acupuncture. He prefers not to be land based exercise. Treatment Goals Patient/Caregiver Goals figure out a program I can do in the pool to strengthen my core, legs, and work on flexibility Prior Functional Status Baseline Function- ADL's Independent Baseline Function- Mobility Independent Baseline Function- Gait Independent without AD Baseline Function- Work/School Pt is retired, worked a desk job for many years. Baseline Function- Recreation/Hobbies Independent Baseline Function- Other Independent Current Functional Impairments (Reported) Functional Limitations- ADL's Low back pain with ifting objects, mopping, vacuuming, sweeping, prolonged standing/ sitting, and walking. Functional Limitations- Mobility/Gait Pt reports he used to be able to walk for an hour but is sometimes limited to 2 blocks now due to increased LBP. Functional Limitations- Recreation/ Pt enjoys go on walks and Hobbies exercising in the pool, these activities have been limited due to LBP. Personal Factors Other Personal Factors That May Effect chronic LBP, lumbar fusion, Therapy/Recovery arthritis PT-OP-C Subjective Start: 06/22/18 08:52 Freq: Status: Active Protocol: Document 08/16/18 10:15 LJ (Rec: 08/16/18 13:07 LJ [email or web address]) OP-PT Subjective Patient Comments Patient Comments Pt feels he is getting much stronger and wants to transition to some land based exercise. Hoping land based will increase his ability to increase walking distance. PT-OP-F Manual Assessment Start: 06/22/18 13:29 Freq: Status: Active Protocol: Document 06/22/18 08:53 BS (Rec: 06/22/18 13:30 BS [email or web address]) Manual Assessments Soft Tissue Assessment Soft Tissue Mobility Assessment Hypertonicity to B lumbar paraspinals, no tenderenss noted Joint Mobility Assessment Joint Mobility Assessment Stiffness and hypomibilty from L1-L5 with central and unilateral PAs. Pt denied pain with joint mobility assessment. PT-OP-G Mobility & Gait Start: 06/22/18 08:52 Freq: Status: Active Protocol: Document 06/22/18 08:53 BS (Rec: 06/22/18 13:28 BS [email or web address]) OP Mobility Evaluation Bed Mobility Rolling Independent Supine to and from Sit Independent, use of B UEs Transfers Sit to Stand Independent, use of B UEs to push up from chair OP Gait Assessment Gait Gait Assistance Required: Independent Able to Maintain Weight Bearing Status Yes During Gait Gait Deviations General Gait Pattern Within Normal Limits,Flexed Trunk Comments Gait Comments slight trunk flexion with ambulation in clinic. PT-OP-J Posture/Palpation/Skin Start: 06/22/18 08:52 Freq: Status: Active Protocol: Document 06/22/18 08:53 BS (Rec: 06/22/18 13:28 BS [email or web address]) Posture Evaluation Position Sitting Evaluation View Posterior Head/C-Spine Posture Forward Head Shoulder Posture (R) Rounded,(R) Forward Comments Posture Comments stands with slight trunk flexion. Palpation Assessment Location One Palpation Location Lumbar Parapsinals Palpation Findings Soft Tissue Tightness Palpation Details Hypertonicity and tightness with palpation to B paraspinals, no tenderness noted. PT-OP-K Range of Motion Start: 06/22/18 08:52 Freq: Status: Active Protocol: Document 06/22/18 08:53 BS (Rec: 06/22/18 12:18 BS [email or web address]) Lumbar Spine Range of Motion Lumbar Spine Active Testing Position Standing Flexion 60 Extension 20 Comments Moderatly limited in bilateral rotation and sidebending. Pt reports stiffness with all lumbar AROM and some discomfort in low back. Hip Goniometric Range of Motion Hip Right Passive Hip ROM WFL No Testing Position Supine Flexion w/Knee Flexed 85 Straight Leg Raise 75 Left Passive Hip ROM WFL No Testing Position Supine Flexion w/Knee Flexed 88 Straight Leg Raise 60 Hip ROM Limitations Comments Low back pain reproduced with PROM hip flexion bilaterally. PT-OP-L Special Tests Start: 06/22/18 08:52 Freq: Status: Active Protocol: Document 06/22/18 08:53 BS (Rec: 06/22/18 12:18 BS [email or web address]) Special Tests Lumbar Spine Special Tests Slump Test Results Negative Straight Leg Raise Test Results + Prone Knee Flexion Test Results + Comments I can feel my vertebrae moving on eachother PT-OP-M Strength Start: 06/22/18 08:52 Freq: Status: Active Protocol: Document 06/22/18 08:53 BS (Rec: 06/22/18 12:18 BS [email or web address]) Hip Strength Hip Manual Muscle Testing Right Flexion (L2) 4+ Good+ Extension (S1) 4 Good Abduction 5 Normal External Rotation 5 Normal Internal Rotation 5 Normal Comments No pain during MMT Left Flexion (L2) 4+ Good+ Extension (S1) 4 Good Abduction 5 Normal External Rotation 5 Normal Internal Rotation 5 Normal Comments No pain during MMT Knee Strength Knee Manual Muscle Testing Right Flexion (S2) 5 Normal Extension (L3) 5 Normal Comments No pain during MMT Left Flexion (S2) 5 Normal Extension (L3) 5 Normal Comments No pain during MMT Ankle/Foot Strength Ankle and Foot Manual Muscle Testing Right Dorsiflexion (L4) 5 Normal Plantarflexion (S1) 5 Normal Comments No pain during MMT Left Dorsiflexion (L4) 5 Normal Plantarflexion (S1) 5 Normal Comments No pain during MMT PT-OP-T Assessment and Plan Start: 06/22/18 08:52 Freq: Status: Active Protocol: Document 10/24/18 10:13 JONNY (Rec: 10/24/18 10:14 JONNY [id number]) Physical Therapy Plan Discharge Physical Therapy Discharge Reasons Goals Met Discharge Comments Patient PT goals met, is going to continue aquatic exercise with assistanc of principal trainer.
== END 2018-11-03 07:43 ==
LOC: PHYS 10:15
PROVIDERS: PCP Student in an Organized Health Care Education/Training Program; Visit Provider Student in an Organized Health Care Education/Training Program
DX: M54.5 Low back pain (principal); G89.29 Other chronic pain
CPT/HCPCS: 97113; 97161

== ENCOUNTER → 2018-09-29 09:55 | Outpatient (CLI) | payer MEDICARE, OTHER, SELFPAY ==
--- NOTE | 2018-09-29 | DI.NM.S_ITS ---
PROCEDURE: SD BONE SCAN WHOLE BODY RADIOPHARMACEUTICAL: 19.2 mCi Tc-99m MDP IV. INDICATIONS: Spinal stenosis, lumbar region TECHNIQUE: Delayed whole-body scintigrams were obtained approximately 3-4 hours after intravenous injection of radiotracer. Anterior and posterior views were acquired from vertex to feet. Additional left and right oblique views of the thoracolumbar spine were obtained. COMPARISON: [facility], NM, NM BONE SCAN WHOLE BODY, 09/28/2017, 14:23. [facility], CT, CT LUMBAR SPINE WO CON, 09/29/2018, 10:26. [facility], MR, MR LUMBAR SPINE WO CON, 05/31/2018, 9:08. FINDINGS: There are foci of mildly increased uptake in cervical, thoracic and lumbar spine with distribution indistinguishable from degenerative disc and facet disease; early metastasis to spine could be obscured by degenerative disc and facet disease. Increased uptake in the maxilla area is likely secondary to dental disease. No lesions are identified in skull, sternum, clavicles, scapulae, ribs, bony pelvis, and visualized shafts of the long bones. There are foci of increased periarticular activity involving shoulders, sternoclavicular joints, wrists, hands, hips, knees and ankles ankles, compatible with degenerative/arthritic changes. IMPRESSION: 1. Degenerative disc and facet disease in cervical, thoracic and lumbar spine. 2. Degenerative changes in multiple peripheral joints. Dictated by: Tho De Santiago M.D. on 09/29/2018 at 17:30 Approved by: Tho De Santiago M.D. on 09/29/2018 at 17:35
--- NOTE | 2018-09-29 10:06 | DI.CT.S_ITS ---
PROCEDURE: CT LUMBAR SPINE WO CON INDICATIONS: Spinal stenosis, lumbar region. History of urothelial cancer also given. TECHNIQUE: Noncontrast 3 mm thick sections acquired from the T12 level to the sacrum. Sagittal and coronal reformats were constructed. For radiation dose reduction, the following was used: automated exposure control. COMPARISON: [facility], , MR LUMBAR SPINE WO CON, 05/31/2018, 9:08. Outside Facility, RG, MRI L-SPINE W/O CONTRAST, 11/17/2010, 12:49. Outside Facility, RG, MRI L-SPINE W/WO CONTRAST, 08/30/2014, 15:22. [facility], [place], NM BONE SCAN WHOLE BODY, 09/28/2017, 14:23. FINDINGS: Image quality: Excellent. Bones: Mild levoconvex scoliotic curvature is noted. Minimal retrolisthesis can be seen at L1-L2 and L3-L4. No acute vertebral body compression fractures. No suspicious lytic or blastic bony lesions. Central spinal caliber is of normal overall caliber. No pars defects. T12-L1: The disc height is relatively well-preserved. Vacuum disc phenomenon is seen at this level. Bridging endplate osteophytes are seen, including posteriorly projecting bridging endplate osteophytes. Moderate bilateral neural foraminal narrowing is seen. Moderate to severe central canal narrowing is seen at this level. L1-L2: The disc height is well preserved. Vacuum disc phenomenon is seen at this level. Bridging endplate osteophytes are seen, including posteriorly projecting, bridging endplate osteophytes. Uobk-ul-xerrzpbu bilateral neural foraminal narrowing is seen. Moderate to severe central canal narrowing is seen, as on series 3 image 36. L2-L3: The disc height is relatively well-preserved. Vacuum disc phenomenon is seen at this level. Endplate osteophyte formation can be seen, including bridging endplate osteophytes on the right side. Suct-ci-vkssjedw facet hypertrophy is seen. There is moderate left-sided and moderate to severe right-sided neural foraminal narrowing seen. Moderate central canal narrowing is seen. L3-L4: Moderate to severe loss of disc height and disc signal are seen. Prominent bridging endplate osteophytes are seen anteriorly. Moderate facet joint hypertrophy is seen. There is moderate right-sided and mild to moderate left-sided neural foraminal narrowing seen. There has been removal of portions of the posterior elements. No significant central canal narrowing is seen. L4-L5: Vertebral body fusion can be seen at this level. There has been removal of portions of the posterior elements. Mild to moderate disc bulge is seen. There is fusion of the sacroiliac joints. Moderate to severe bilateral neural foraminal narrowing is seen. No central canal narrowing is seen. L5-S1: Partial vertebral body bridging is seen at this level. Endplate osteophytes are seen, including posteriorly projecting endplate osteophytes. Moderate facet joint hypertrophy is seen. There is moderate to severe left-sided and at least moderate right-sided neural foraminal narrowing seen. No significant central canal narrowing is seen. Soft tissues: No retroperitoneal masses or hematomas. Diverticulosis is seen, without findings of active diverticulitis. Left-sided IVC incidentally noted. Visualized aorta is normal in caliber. Atherosclerotic calcification is noted. IMPRESSION: Multiple levels of lumbar spine degenerative change are seen, which are most prominent inferiorly and are similar to the prior recent MRI examination. Postoperative changes are seen inferiorly. Incidental note is made of: Left-sided IVC Diverticulosis is seen, without findings of active diverticulitis. Dictated by: Cecilio Santizo M.D. on 09/29/2018 at 10:50 Approved by: Cecilio Santizo M.D. on 09/29/2018 at 11:00
== END ==
PROVIDERS: PCP Student in an Organized Health Care Education/Training Program; Visit Provider Neurological Surgery
DX: M47.816 Spondylosis without myelopathy or radiculopathy, lumbar region (principal); M48.061 Spinal stenosis, lumbar region without neurogenic claudication; G89.29 Other chronic pain; K57.90 Diverticulosis of intestine, part unspecified, without perforation or abscess without bleeding; M50.30 Other cervical disc degeneration, unspecified cervical region; M51.34 Other intervertebral disc degeneration, thoracic region; M51.36 Other intervertebral disc degeneration, lumbar region; Z98.1 Arthrodesis status
CPT/HCPCS: 72131; 78306; A9503

== ENCOUNTER → 2018-10-24 15:39 | Outpatient (CLI) | payer MEDICARE, OTHER, SELFPAY ==
[2018-10-24 18:19] LABS: Prostate Specific Antigen 0.461 ng/mL (0.10-4.00)
== END ==
PROVIDERS: PCP Student in an Organized Health Care Education/Training Program; Visit Provider Urology
DX: C61 Malignant neoplasm of prostate (principal)
CPT/HCPCS: 36415; 84153

== ENCOUNTER → 2018-12-27 12:35 | Outpatient (CLI) | payer MEDICARE, OTHER, SELFPAY ==
[2018-12-27 13:50] LABS: Prostate Specific Antigen 0.361 ng/mL (0.10-4.00)
== END ==
PROVIDERS: Family Provider Student in an Organized Health Care Education/Training Program; PCP Student in an Organized Health Care Education/Training Program; Visit Provider Radiology Radiation Oncology
DX: C61 Malignant neoplasm of prostate (principal)
CPT/HCPCS: 36415; 84153

== ENCOUNTER → 2019-01-31 10:09 | Outpatient (CLI) | payer MEDICARE, OTHER, SELFPAY ==
--- NOTE | 2019-01-31 | DI.RAD.S_ITS ---
PROCEDURE: XR SHOULDER LT MIN 2V INDICATIONS: left shoulder pain TECHNIQUE: 3 views of the shoulder were acquired. COMPARISON: None. FINDINGS: Bones: No fractures or dislocations. Moderate degenerative changes at the acromioclavicular joint. Mild spurring at the inferior glenohumeral joint. No suspicious bony lesions. Visualized ribs appear intact. Soft tissues: No suspicious soft tissue calcifications. IMPRESSION: Moderate degeneration at the acromioclavicular joint. Mild spurring at the inferior glenohumeral joint. Dictated by: Brittny Ashton M.D. on 01/31/2019 at 11:41 Approved by: Brittny Ashton M.D. on 01/31/2019 at 11:44
[2019-01-31 11:20] LABS: BUN Creatinine Ratio 22.9 (6-22); Blood Urea Nitrogen 16 mg/dL (9-20); C-Reactive Protein Quant 0.7 mg/dL (<1.0); Carbon Dioxide 27 mmol/L (22-32); Chloride 104 mmol/L (98-107); Estimated Glomerular Filt Rate > 60.0 mL/min (>60); Glucose 101 mg/dL (80-110); HEMOLYSIS 16 (0-50); Potassium 4.1 mmol/L (3.4-5.1); Sodium 140 mmol/L (137-145)
[2019-01-31 11:55] LABS: Vitamin D 25 Hydroxy (D3) 38.5 ng/mL (30.0-100.0)
[2019-01-31 13:54] LABS: Hemoglobin A1C% w Est Avg Glu 5.3 % (4.0-6.0)
== END ==
PROVIDERS: PCP Student in an Organized Health Care Education/Training Program; Visit Provider Student in an Organized Health Care Education/Training Program
DX: E66.9 Obesity, unspecified (principal); G89.29 Other chronic pain; I10 Essential (primary) hypertension; M25.511 Pain in right shoulder; M25.512 Pain in left shoulder; E55.9 Vitamin D deficiency, unspecified
CPT/HCPCS: 36415; 73030; 80048; 82306; 83036; 86140

== ENCOUNTER → 2019-04-11 08:55 | Outpatient (CLI) | payer MEDICARE, OTHER, SELFPAY ==
--- NOTE | 2019-04-11 09:01 | DI.RAD.S_ITS ---
PROCEDURE: XR LUMBAR SPINE MIN 4V INDICATIONS: Post laminectomy syndrome TECHNIQUE: 5 views of the lumbar spine were acquired. COMPARISON: None. FINDINGS: Bones: 5 nonrib-bearing vertebrae are present. There is normal bony alignment. No vertebral body compression fractures. No suspicious bony lesions. There is a moderate degree of degenerative disc disease and moderately severe facet osteoarthritis along the lumbosacral line most pronounced over the lower third. Soft tissues: Overlying bowel gas pattern is normal. No suspicious soft tissue calcifications. Oblique images: No pars defects. IMPRESSION: Multilevel degenerative disc disease and facet osteoarthritis to the degree that spinal and foraminal stenosis would be expected at multiple levels, especially over the lower third of the LS spine. No compression fracture found. Dictated by: Delmer Jacques M.D. on 04/11/2019 at 10:10 Approved by: Delmer Jacques M.D. on 04/11/2019 at 10:11
== END ==
PROVIDERS: PCP Student in an Organized Health Care Education/Training Program; Referring Provider Physical Medicine & Rehabilitation; Visit Provider Physical Medicine & Rehabilitation
DX: M96.1 Postlaminectomy syndrome, not elsewhere classified (principal); M51.37 Other intervertebral disc degeneration, lumbosacral region; M47.817 Spondylosis without myelopathy or radiculopathy, lumbosacral region
CPT/HCPCS: 72110

== ENCOUNTER → 2019-05-02 11:16 | Outpatient (CLI) | payer MEDICARE, OTHER, SELFPAY ==
[2019-05-02 15:05] LABS: Prostate Specific Antigen 0.095 ng/mL (0.10-4.00)
== END ==
PROVIDERS: PCP Student in an Organized Health Care Education/Training Program; Referring Provider Urology; Visit Provider Urology
DX: Z85.46 Personal history of malignant neoplasm of prostate (principal)
CPT/HCPCS: 36415; 84153

== ENCOUNTER → 2019-05-03 18:38 | Outpatient (CLI) | payer MEDICARE, OTHER, SELFPAY ==
--- NOTE | 2019-05-03 18:41 | DI.MRI.S_ITS ---
PROCEDURE: MR SHOULDER LT WO CON INDICATIONS: Left shoulder pain TECHNIQUE: Noncontrast oblique coronal T2 fast spin echo with fat saturation, oblique sagittal T1 spin echo and T2 fast spin echo with fat saturation, axial T1 spin echo and T2 fast spin echo with fat saturation through the shoulder. COMPARISON: None. FINDINGS: Image quality: Excellent. Rotator cuff: Mild T2 signal elevation within the posterior supraspinatus at the muscular tendinous junction is present, compatible with tendinopathy. There is a high-grade pinhole tear of the mid/upper subscapularis tendon at the humeral insertion site. The supraspinatus, infraspinatus, and subscapularis tendons appear intact throughout. Sagittal images demonstrate no muscle atrophy. Bones and bursae: No bone marrow contusions or fractures. There is severe acromioclavicular joint degeneration. The acromion demonstrates conventional anatomy, without an os acromiale. No pathologic subacromial-subdeltoid or subcoracoid bursal fluid is present. Capsule and soft tissues: There is linear and amorphous high T2 signal intensity within the inferior and anteroinferior glenoid labrum. The long head of the biceps tendon demonstrates normal location and split type tearing. The rotator interval appears normal, without fibrosis. The coracohumeral ligament is normal in thickness. IMPRESSION: 1. High-grade pinhole tear of the upper subscapularis tendon at the humeral insertion site. 2. Mild supraspinatus tendinopathy without tear. 3. Acromioclavicular joint osteoarthritis. 4. Split type tearing of the biceps tendon. 5. Inferior glenoid labral tearing. Dictated by: Katerin Baca M.D. on 05/04/2019 at 9:01 Approved by: Katerin Baca M.D. on 05/04/2019 at 9:03
--- NOTE | 2019-05-03 18:41 | DI.MRI.S_ITS ---
PROCEDURE: MR KNEE LT WO CON INDICATIONS: Left knee swelling TECHNIQUE: Noncontrast sagittal PD fast spin echo and T2 fast spin echo with fat saturation, sagittal 3-D FLASH with fat saturation; coronal T1 spin echo and PD fast spin echo with fat saturation, and axial PD fast spin echo with fat saturation through the knee. COMPARISON: None. FINDINGS: Image quality: Excellent. Menisci: Medial extrusion of the medial meniscus is present. There is linear and amorphous high signal intensity within the medial meniscal body and posterior horn, demonstrating superior and inferior articular surface extension, indicating complex tearing. There is linear and amorphous high signal intensity within the lateral meniscal posterior horn, demonstrating superior and inferior articular surface extension, indicating complex tearing. Cruciate ligaments: The anterior cruciate ligament is intact. Moderate T2 signal elevation along the course of the anterior cruciate ligament is present, compatible with myxoid degeneration. There is a small focus of high T2 signal intensity within the posterior cruciate ligament at the tibial insertion site, indicating low-grade partial-thickness tearing. Medial structures: The medial collateral ligament appears intact. Mild T2 signal elevation surrounds the medial collateral ligament. Visualized portions of the pes anserinus tendons appear normal. Small amount of medial bursal fluid. Lateral structures: The lateral collateral ligament demonstrates mild T2 signal elevation of the femoral origin. The long and short heads of the biceps femoris tendon appear intact. The popliteus tendon appears normal. Iliotibial band appears normal. Anterior structures: The quadriceps and patellar tendons appear intact. Patellar alignment is normal. No femoral trochlear dysplasia or ventral trochlear prominence. No edema in the infrapatellar fat pad. Bones and cartilage: No bone marrow contusions or fractures. There is moderate tricompartmental periarticular osteophyte formation. Moderate to severe diffuse surgical cartilage loss overlies the weightbearing aspects of the medial femoral condyle and medial tibial plateau. Mild articular cartilage loss overlies the weightbearing aspects of the lateral femoral condyle and lateral tibial plateau. Mild articular cartilage loss overlies the medial and lateral patellar facets. Joint space: There is a moderate knee joint effusion. No Cross's cyst. There are multiple intra-articular loose bodies, largest of which are in the posterior central aspect of the knee joint measuring 9-10 mm. Normal appearing synovial plicae are incidentally noted. IMPRESSION: 1. Tricompartmental osteoarthritis with associated articular cartilage loss. 2. Medial and lateral meniscal complex tearing. 3. Knee joint effusion and intra-articular loose bodies. 4. Low-grade partial-thickness tearing of the posterior cruciate ligament. Myxoid degeneration of the anterior cruciate ligament. 5. MCL strain. 6. Low-grade partial-thickness tearing of the lateral collateral ligament. 7. Mild medial bursitis. Dictated by: Katerin Baca M.D. on 05/04/2019 at 9:09 Approved by: Katerin Baac M.D. on 05/04/2019 at 9:13
== END ==
PROVIDERS: PCP Student in an Organized Health Care Education/Training Program; Referring Provider Student in an Organized Health Care Education/Training Program; Visit Provider Student in an Organized Health Care Education/Training Program
DX: M75.42 Impingement syndrome of left shoulder (principal); M19.012 Primary osteoarthritis, left shoulder; S46.012A Strain of muscle(s) and tendon(s) of the rotator cuff of left shoulder, initial encounter; S46.112A Strain of muscle, fascia and tendon of long head of biceps, left arm, initial encounter; S43.492A Other sprain of left shoulder joint, initial encounter; M25.562 Pain in left knee; M25.462 Effusion, left knee; S83.272A Complex tear of lateral meniscus, current injury, left knee, initial encounter; S83.232A Complex tear of medial meniscus, current injury, left knee, initial encounter; S83.522A Sprain of posterior cruciate ligament of left knee, initial encounter; S83.412A Sprain of medial collateral ligament of left knee, initial encounter; S83.422A Sprain of lateral collateral ligament of left knee, initial encounter; M17.12 Unilateral primary osteoarthritis, left knee; M71.562 Other bursitis, not elsewhere classified, left knee
CPT/HCPCS: 73221; 73721

== ENCOUNTER → 2019-07-17 13:53 | Outpatient (CLI) | payer MEDICARE, OTHER, SELFPAY ==
[2019-07-18 14:35] LABS: COVID19 Sendout Not Detected (Not Detect)
== END ==
PROVIDERS: PCP Student in an Organized Health Care Education/Training Program; Visit Provider Registered Nurse
DX: Z01.818 Encounter for other preprocedural examination (principal)
CPT/HCPCS: 87635

== ENCOUNTER 2019-07-19 13:27 | Outpatient (CLI) | payer MEDICARE, OTHER, SELFPAY ==
[2019-07-19] VITALS (9 sets, daily range): BP systolic 112–135; BP diastolic 78–93; PULSE 87–99; RESP 12–16; TEMP 36.6; O2SAT 93–96
--- NOTE | 2019-07-19 13:28 | DI.RAD.S_ITS ---
PROCEDURE: PAIN L/S FACET INJ/BLK 1ST TRISHA COMPARISON: None. INDICATIONS: SPONDYLOSIS FINDINGS: Bilateral L2, L3 and L4 needle tip localization has been performed for medial branch block procedures at these 3 levels bilaterally. 6 total procedures. IMPRESSION: Normal needle tip localization for medial branch block procedure at 6 separate sites as discussed, bilaterally. Dictated by: Delmer Jacques M.D. on 07/19/2019 at 14:52 Approved by: Delmer Jacques M.D. on 07/19/2019 at 14:53
[2019-07-19] MEDS: MIDAZOLAM 5 MG/5 ML VIAL IV (14:03)
[2019-07-19] MEDS: fentaNYL 100 MCG/2 ML INJ 50 MCG IV (14:03)
[2019-07-19] MEDS: IOPAMIDOL 15 ML VIAL 3 ML INJ (14:13)
[2019-07-19] MEDS: BUPIVACAINE 0.25% (PF) VIAL 5 ML INJ (14:13)
[2019-07-19] MEDS: LIDOCAINE 1% 20 ML 10 ML INJ (14:13)
--- NOTE | 2019-07-19 14:15 | PC.NURSE ---
ASSISTING PT OFF TABLE AND TRANSPORTING TO POST PROC AREA IN STABLE CONDITION. PASSING RN CARE OF PT OFF TO MARIEL LOZANO.
--- NOTE | 2019-07-19 14:17 | PM.PROC.1 ---
Procedures Date/Time Date of procedure: 07/19/19 Time of procedure: 14:18 General Procedure description: POST OP DIAGNOSIS 1. FACET ARTHROPATHY PROCEDURES 1. BILATERAL L2, L3, L4 DIAGNOSTIC MB BLOCKS PHYSICIAN: Edu Mclaughlin DO INDICATIONS Wilman is referred by for treatment of Bilateral Axial LBP. DESCRIPTION OF PROCEDURE Fluoroscopically guided, contrast-controlled bilateral L2, L3, L4 medial branch blocks with 0.5cc of 0.5% Marcaine. Following review of allergy and review of potential side effects and complications, including, but not necessarily limited to, infection, allergic reaction, local tissue breakdown, nerve injury, paralysis, stroke and possible , the patient indicated that the patient understood and agreed to proceed. An informed consent document was signed by the patient, witnessed by a nurse, and placed in the patient's chart. After review of previous anaesthesic history and IV conscious sedation the patient was deemed safe to proceed with todays procedure with IV conscious sedation as ASA class II designation. Safety time-out was performed to confirm patient ID, procedure to be performed and site of procedure. IV sedation was accomplished with a combination of 2mg of Versed and 50mcg of Fentantyl was administered by the RN after DO order, titrated to patient comfort during the course of the procedure while the patient remained responsive to all verbal commands In the prone position, following sterile prep and drape of the lumbar region, the right L2, L3, L4 anatomical location of the medial branch of the dorsal ramus was identified fluoroscopically. Subsequently an anesthetic skin wheal using 1% lidocaine solution was initiated at each of the anatomical spots. Subsequently then a 22-gauge 3.5-inch spinal needle was atraumatically introduced and advanced under fluoroscopic guidance at each of the corresponding sites at the right L2, L3, L4 MB. After negative aspiration, 0.2cc of Isovue 200 was injected, confirming placement without vascular or intrathecal uptake. Subsequently then 0.5cc of 0.5% Marcaine solution was injected at each of the corresponding sites at the right L2, L3, L4 medial branch locations. The identical procedure was replicated on the left. The patient tolerated the procedure well without signs or symptoms of complications. The patient tolerated the procedure well without signs or symptoms of complications prior to transfer to the recovery area continued monitoring without incident. Post-procedure, the patient was monitored initiating provocative activities to measure the amount of relief from block of the facetogenic pain. The patient reported a VAS of 7 prior to the procedure and a post-procedure VAS of 1. It has been a pleasure to assist in the diagnostic and therapeutic care of your patient. Total Fluoroscopy Time: 11 seconds Total Conscious Sedation Time: 24min POST OP INSTRUCTIONS The patient was provided with a Pain Log to complete over the next several hours and subsequent days prior to the patient's follow up with the ordering physician. If the patient has half section ironer relief to the solution applied, then they may be a candidate for medial branch rhizotomy. The patient is aware, was provided, once again, with a Pain Log and will follow up with the referring physician for review and clinical correlation Edu Mclaughlin DO Complications: none
== END 2019-07-19 14:40 | disposition home or self-care (01) ==
LOC: RAD 13:28
PROVIDERS: PCP Student in an Organized Health Care Education/Training Program; Referring Provider Physical Medicine & Rehabilitation; Visit Provider Physical Medicine & Rehabilitation
DX: M47.816 Spondylosis without myelopathy or radiculopathy, lumbar region (principal); M54.5 Low back pain
CPT/HCPCS: 64493; 64494; 99152; J2250; J3010

== ENCOUNTER → 2019-09-10 12:04 | Outpatient (CLI) | payer MEDICARE, OTHER, SELFPAY ==
[2019-09-12 06:54] LABS: COVID19 Sendout Not Detected (Not Detect)
== END ==
PROVIDERS: PCP Student in an Organized Health Care Education/Training Program; Visit Provider Nurse Practitioner
DX: Z01.812 Encounter for preprocedural laboratory examination (principal)
CPT/HCPCS: 87635

== ENCOUNTER 2019-09-13 08:56 | Outpatient (CLI) | payer MEDICARE, OTHER, SELFPAY ==
[2019-09-13] VITALS (10 sets, daily range): BP systolic 105–141; BP diastolic 70–90; PULSE 83–96; RESP 15–17; TEMP 36.5; O2SAT 92–96
--- NOTE | 2019-09-13 08:58 | DI.RAD.S_ITS ---
PROCEDURE: PAIN L/S FACET INJ/BLK 1ST TRISHA COMPARISON: [facility], XA, PAIN L/S FACET INJ/BLK 1ST TRISHA, 07/19/2019, 13:05. INDICATIONS: SPONDYLOSIS FINDINGS: Needle tip localization is present bilaterally for medial branch block procedures involving the L2, L3, and L4 nerve roots. IMPRESSION: Successful bilateral needle tip localization for 6 level procedures, medial branch block involving the C2 through C4 nerve roots, bilaterally. Dictated by: Delmer Jacques M.D. on 09/13/2019 at 10:39 Approved by: Delmer Jacques M.D. on 09/13/2019 at 10:40
[2019-09-13] MEDS: fentaNYL 100 MCG/2 ML INJ 50 MCG IV (09:48)
[2019-09-13] MEDS: MIDAZOLAM 5 MG/5 ML VIAL IV (09:48)
[2019-09-13] MEDS: LIDOCAINE 1% 20 ML 10 ML INJ (09:52)
[2019-09-13] MEDS: BUPIVACAINE 0.5% (PF) VIAL 5 ML INJ (09:53)
[2019-09-13] MEDS: IOPAMIDOL 15 ML VIAL 3 ML INJ (09:53)
--- NOTE | 2019-09-13 10:16 | P.PCN_ITS ---
Date/Time/Diagnoses Date of procedure: 09/13/19 Time of procedure: 10:16 Pre-procedure diagnosis: 1. FACET ARTHROPATHY Post-procedure diagnosis: same Procedure Notes Procedure: 1. BILATERAL L2, L3, L4 DIAGNOSTIC MB BLOCKS Indications: Wilman is referred by Dr. Summers for treatment of Bilateral Axial LBP. Physician: Edu Mclaughlin Total Fluoroscopy time (seconds): 14 Total sedation minutes: 24 Complications: none Procedure in detail & Post-procedure care: DESCRIPTION OF PROCEDURE Fluoroscopically guided, contrast-controlled bilateral L2, L3, L4 medial branch blocks with 0.5cc of 0.5% Marcaine. Following review of allergy and review of potential side effects and complications, including, but not necessarily limited to, infection, allergic reaction, local tissue breakdown, nerve injury, paralysis, stroke and possible , the patient indicated that the patient understood and agreed to proceed. An informed consent document was signed by the patient, witnessed by a nurse, and placed in the patient's chart. After review of previous anaesthesic history and IV conscious sedation the patient was deemed safe to proceed with today's procedure with IV conscious sedation as ASA class II designation. Safety time-out was performed to confirm patient ID, procedure to be performed and site of procedure. IV sedation was accomplished with a combination of 3mg of Versed and 50mcg of Fentantyl was administered by the RN after DO order, titrated to patient comfort during the course of the procedure while the patient remained responsive to all verbal commands. In the prone position, following sterile prep and drape of the lumbar region, the right L2, L3, L4 anatomical location of the medial branch of the dorsal ramus was identified fluoroscopically. Subsequently an anesthetic skin wheal us ing 1% lidocaine solution was initiated at each of the anatomical spots. Subsequently then a 22-gauge 3.5-inch spinal needle was atraumatically introduced and advanced under fluoroscopic guidance at each of the corresponding sites at the right L2, L3, L4 MB. After negative aspiration, 0.2cc of Isovue 200 was injected, confirming placement without vascular or intrathecal uptake. Subsequently then 0.5cc of 0.5% Marcaine solution was injected at each of the corresponding sites at the right L2, L3, L4 medial branch locations. The identical procedure was replicated on the left. The patient tolerated the procedure well without signs or symptoms of complications. The patient tolerated the procedure well without signs or symptoms of complications prior to transfer to the recovery area continued monitoring without incident. Post-procedure, the patient was monitored initiating provocative activities to measure the amount of relief from block of the facetogenic pain. The patient reported a VAS of 7 prior to the procedure and a post-procedure VAS of 1. It has been a pleasure to assist in the diagnostic and therapeutic care of your patient. POST OP INSTRUCTIONS The patient was provided with a Pain Log to complete over the next several hours and subsequent days prior to the patient's follow up with the ordering physician. If the patient has twister tender paper relief to the solution applied, then they may be a candidate for medial branch rhizotomy. The patient is aware, was provided, once again, with a Pain Log and will follow up with the referring physician for review and clinical correlation
--- NOTE | 2019-09-13 10:55 | PC.NURSE ---
1019: pt returned to pre proc room, stable transfer from wc to chair with 1PA. Monitoring resumed per protocol
--- NOTE | 2019-09-13 16:11 | PC.NURSE ---
Pt tolerated procedure well. VSS upon transfer to post procedure room. Report given to MARIEL Cunha. ERIC Fent and Versed given by Ankita Holland. All other meds administered by Dr. Mclaughlin.
== END 2019-09-13 10:45 | disposition home or self-care (01) ==
LOC: RAD 08:57
PROVIDERS: PCP Student in an Organized Health Care Education/Training Program; Referring Provider Physical Medicine & Rehabilitation; Visit Provider Physical Medicine & Rehabilitation
DX: M47.816 Spondylosis without myelopathy or radiculopathy, lumbar region (principal); M54.5 Low back pain
CPT/HCPCS: 64493; 64494; 64495; 99152; J2250; J3010

== ENCOUNTER → 2019-09-18 09:59 | Outpatient (CLI) | payer MEDICARE, OTHER, SELFPAY ==
[2019-09-18 11:27] LABS: Prostate Specific Antigen < 0.064 ng/mL (0.10-4.00)
== END ==
PROVIDERS: PCP Student in an Organized Health Care Education/Training Program; Referring Provider Urology; Visit Provider Urology
DX: C61 Malignant neoplasm of prostate (principal)
CPT/HCPCS: 36415; 84153

== ENCOUNTER → 2019-09-26 10:21 | Outpatient (CLI) | payer MEDICARE, OTHER, SELFPAY ==
--- NOTE | 2019-09-26 10:23 | DI.RAD.S_ITS ---
PROCEDURE: XR RIBS BI 3V INDICATIONS: TRAUMATIC INJURY OF CHEST WALL TECHNIQUE: 5 views of the bilateral ribs were acquired. COMPARISON: None. FINDINGS: Surgical changes and devices: None. Bones and chest wall: No fractures or dislocations. No suspicious bony lesions. Overlying soft tissues appear unremarkable. Lungs and pleura: The visualized lung appears clear. No pleural effusions or pneumothorax are visible. IMPRESSION: No trauma found. Quality of visualization is somewhat limited and depending on the clinical status follow-up by delayed plain films or bone scan imaging may be warranted. Dictated by: Delmer Jacques M.D. on 09/26/2019 at 11:33 Approved by: Delmer Jacques M.D. on 09/26/2019 at 11:35
== END ==
PROVIDERS: PCP Student in an Organized Health Care Education/Training Program; Referring Provider Student in an Organized Health Care Education/Training Program; Visit Provider Student in an Organized Health Care Education/Training Program
DX: S29.9XXA Unspecified injury of thorax, initial encounter (principal); X58.XXXA Exposure to other specified factors, initial encounter
CPT/HCPCS: 71110

== ENCOUNTER → 2019-10-17 06:43 | Outpatient (CLI) | payer MEDICARE, OTHER, SELFPAY ==
--- NOTE | 2019-10-17 | DI.MRI.S_ITS ---
PROCEDURE: MR KNEE LT WO CON INDICATIONS: PAIN IN LEFT KNEE TECHNIQUE: Noncontrast sagittal PD fast spin echo and T2 fast spin echo with fat saturation, sagittal 3-D FLASH with fat saturation; coronal T1 spin echo and PD fast spin echo with fat saturation, and axial PD fast spin echo with fat saturation through the knee. COMPARISON: [facility], MR, MR KNEE LT WO CON, 05/03/2019, 19:04. FINDINGS: Image quality: Excellent. Menisci: Complex macerated tear of the posterior horn and body of the medial meniscus is again seen. There is a small flap component located in the medial tibial gutter. A probable heterogeneous parameniscal cyst is seen posterior to the posterior horn measuring approximately 9 x 8 mm on sagittal images. There is mild extrusion of the medial meniscus beyond the femorotibial joint line. Complex tearing is again seen in the posterior horn of the lateral meniscus in the posterior portion of the meniscal body with horizontal oblique and vertical longitudinal components. Cruciate ligaments: There is moderate mucoid degeneration within the anterior cruciate ligament. The previously seen focal low-grade partial tear of the distal posterior cruciate ligament appears less prominent. Medial structures: The medial collateral ligament appears intact. The semimembranosus tendon insertions and meniscocapsular junction appear intact. Visualized portions of the pes anserinus tendons appear normal. No abnormal bursal fluid. Lateral structures: The lateral collateral ligament, long and short heads of the biceps femoris tendon appear intact. The popliteus tendon appears intact. No signs of posterolateral corner injury. Iliotibial band appears normal. Anterior structures: The quadriceps and patellar tendons appear intact. Patellar alignment is normal. No femoral trochlear dysplasia or ventral trochlear prominence. No edema in the infrapatellar fat pad. Bones and cartilage: No bone marrow contusions or fractures. Full-thickness cartilage loss is seen in the peripheral portion of the medial tibial plateau with marginal osteophyte formation. The previously seen subchondral edema has decreased when compared to the MRI from 05/03/2019. Mild cartilage thinning is seen in the lateral compartment with small marginal osteophytes. Mild surface irregularity is seen in the patellar articular cartilage. Joint space: There is a moderate to large joint effusion. A 14 x 2 x 8 mm filling defect is seen anterior to the lateral femoral condyle. A 6 mm ossified loose body seen anterior to the lateral tibial plateau. Additional calcified loose bodies are seen posterior to the intercondylar notch measuring up to 12 mm in maximum dimension. IMPRESSION: 1. Tricompartmental degenerative changes including full-thickness cartilage loss in medial compartment and mild cartilage irregularity in the lateral and anterior compartments. 2. Complex macerated tear of the medial meniscus with extrusion of the meniscal body and a possible small flap component in the medial tibial gutter. 3. Complex tearing of the posterior horn and body of the lateral meniscus with horizontal oblique and vertical longitudinal components. 4. Focal low grade intrasubstance tearing of the distal posterior cruciate ligament appears mildly less prominent on this exam. There is moderate intrasubstance degeneration of the anterior cruciate ligament. 5. Large joint effusion. Multiple intra-articular loose bodies are seen. Dictated by: James Kaplan M.D. on 10/17/2019 at 15:56 Approved by: James Kaplan M.D. on 10/17/2019 at 16:11
== END ==
PROVIDERS: PCP Student in an Organized Health Care Education/Training Program; Referring Provider Orthopaedic Surgery; Visit Provider Orthopaedic Surgery
DX: M25.562 Pain in left knee (principal); S83.232A Complex tear of medial meniscus, current injury, left knee, initial encounter; S83.272A Complex tear of lateral meniscus, current injury, left knee, initial encounter; S83.522A Sprain of posterior cruciate ligament of left knee, initial encounter; M25.462 Effusion, left knee
CPT/HCPCS: 73721; 99214

== ENCOUNTER → 2019-11-05 10:00 | Outpatient (CLI) | payer MEDICARE, OTHER, SELFPAY ==
[2019-11-05 10:55] LABS: Add Manual Diff / Slide Review NO; Basophils Absolute Auto 0 /uL (0-100); Basophils Percent Auto 0.7 % (0-2); Eosinophils Absolute Auto 200 /uL (0-450); Eosinophils Percent Auto 3.3 % (2-4); Hematocrit 42.5 % (41-53); Hemoglobin 14.4 g/dL (13.5-17.5); Lymphocytes Absolute Auto 900 /uL (1100-4500); Lymphocytes Percent Auto 19.7 % (25-40); Mean Corpuscular HGB Conc 33.9 % (30-36); Mean Corpuscular Hemoglobin 31.5 PG (26-34); Monocytes Absolute Auto 500 /uL (0-900); Monocytes Percent Auto 11.5 % (3-14); Neutrophils Absolute Auto 3000 /uL (1500-7000); Neutrophils Percent Auto 64.8 % (50-75); Platelet Count 181 X10^3/uL (150-400); Red Blood Cell Count 4.57 X10^6/uL (4.5-5.9); Red Cell Distribution Width 13.1 % (11.6-14.8); White Blood Cell Count 4.7 X10^3/uL (4.5-11.0)
[2019-11-05 11:10] LABS: BUN Creatinine Ratio 20.8 (6-22); Blood Urea Nitrogen 15 mg/dL (9-20); Calcium 9.4 mg/dL (8.4-10.2); Carbon Dioxide 30 mmol/L (22-32); Chloride 102 mmol/L (98-107); Estimated Glomerular Filt Rate > 60.0 mL/min (>60); Glucose 127 mg/dL (80-110); HEMOLYSIS < 15 (0-50); Potassium 4.8 mmol/L (3.4-5.1); Sodium 139 mmol/L (137-145); Uric Acid 5.2 mg/dL (3.5-8.5)
[2019-11-05 11:15] LABS: Hemoglobin A1C% w Est Avg Glu 5.6 % (4.0-6.0)
== END ==
PROVIDERS: PCP Student in an Organized Health Care Education/Training Program; Referring Provider Orthopaedic Surgery; Visit Provider Orthopaedic Surgery
DX: Z01.818 Encounter for other preprocedural examination (principal); Z01.812 Encounter for preprocedural laboratory examination; R73.9 Hyperglycemia, unspecified; E79.0 Hyperuricemia without signs of inflammatory arthritis and tophaceous disease
CPT/HCPCS: 36415; 80048; 83036; 84550; 85025; 93005; 93010

== ENCOUNTER → 2019-12-10 10:26 | Outpatient (CLI) | payer MEDICARE, OTHER, SELFPAY ==
[2019-12-10 12:10] LABS: Prostate Specific Antigen < 0.064 ng/mL (0.10-4.00)
== END ==
PROVIDERS: PCP Student in an Organized Health Care Education/Training Program; Referring Provider Radiology Radiation Oncology; Visit Provider Radiology Radiation Oncology
DX: C61 Malignant neoplasm of prostate (principal)
CPT/HCPCS: 36415; 84153

== ENCOUNTER → 2020-03-20 14:00 | Outpatient (CLI) | payer MEDICARE, OTHER, SELFPAY ==
[2020-03-20 16:38] LABS: Alanine Aminotransferase 47 IU/L (<50); Albumin 4.2 g/dL (3.5-5.0); Albumin Globulin Ratio 1.6 (1.0-2.8); Alkaline Phosphatase 73 U/L (38-126); Aspartate Aminotransferase 44 IU/L (17-59); Bilirubin Total 0.3 mg/dL (0.2-1.3); Bilirubin Unconjugated 0.3 mg/dL (0.0-1.1); Globulin 2.6 g/dL (1.7-4.1); HEMOLYSIS < 15 (0-50); Total Protein 6.8 g/dL (6.3-8.2)
[2020-03-20 16:55] LABS: Vitamin D 25 Hydroxy (D3) 32.5 ng/mL (30.0-100.0)
== END ==
PROVIDERS: PCP Student in an Organized Health Care Education/Training Program; Referring Provider Student in an Organized Health Care Education/Training Program; Visit Provider Student in an Organized Health Care Education/Training Program
DX: E55.9 Vitamin D deficiency, unspecified (principal); M48.062 Spinal stenosis, lumbar region with neurogenic claudication; Z79.899 Other long term (current) drug therapy
CPT/HCPCS: 36415; 80076; 82306

== ENCOUNTER → 2020-06-23 13:21 | Outpatient (CLI) | payer MEDICARE, OTHER, SELFPAY | PROVIDERS: PCP Student in an Organized Health Care Education/Training Program; Referring Provider Urology; Visit Provider Urology | DX: C61 Malignant neoplasm of prostate (principal) | CPT/HCPCS: 36415; 84153 ==

== ENCOUNTER → 2020-08-26 11:22 | Outpatient (CLI) | payer MEDICARE, OTHER, SELFPAY ==
[2020-08-26 12:44] LABS: Prostate Specific Antigen 0.205 ng/mL (0.10-4.00)
== END ==
PROVIDERS: PCP Student in an Organized Health Care Education/Training Program; Referring Provider Specialist; Visit Provider Specialist
DX: C61 Malignant neoplasm of prostate (principal)
CPT/HCPCS: 36415; 84153

== ENCOUNTER → 2020-11-06 15:50 | Outpatient (CLI) | payer MEDICARE, OTHER, SELFPAY ==
--- NOTE | 2020-11-06 15:53 | DI.RAD.S_ITS ---
PROCEDURE: XR HIP W PEL IF DONE TRISHA MIN 4V INDICATIONS: BILATERAL HIP PAIN TECHNIQUE: AP pelvis with lateral view(s) of the bilateral hip(s). COMPARISON: None. FINDINGS: Bones: No acute fractures or dislocations. Pelvic ring appears intact. No suspicious bony lesions. Moderate degenerative changes of the bilateral hips. There is loss of normal sphericity of the femoral head neck junction bilaterally. Moderate degenerative changes of the lower lumbar spine. Soft tissues: The visualized bowel gas pattern is normal. No suspicious soft tissue calcifications. Surgical clips near the lower midline pelvis possibly related to prior vasectomy. IMPRESSION: Moderate bilateral hip degenerative change with findings suggestive of femoral acetabular impingement. Lower lumbar spondylosis. Dictated by: Valentino Vega M.D. on 11/06/2020 at 17:00 Approved by: Valentino Vega M.D. on 11/06/2020 at 17:02
== END ==
PROVIDERS: PCP Student in an Organized Health Care Education/Training Program; Referring Provider Physical Medicine & Rehabilitation; Visit Provider Physical Medicine & Rehabilitation
DX: M25.551 Pain in right hip (principal); M25.552 Pain in left hip
CPT/HCPCS: 73522

== ENCOUNTER → 2020-11-17 08:24 | Outpatient (CLI) | payer MEDICARE, OTHER, SELFPAY ==
[2020-11-17 14:53] LABS: COVID19 -Nasal RAPID Negative (Negative)
== END ==
PROVIDERS: PCP Student in an Organized Health Care Education/Training Program; Visit Provider Physical Medicine & Rehabilitation
DX: Z20.822 Contact with and (suspected) exposure to COVID-19 (principal)
CPT/HCPCS: 87635; C9803

== ENCOUNTER 2020-11-18 15:29 | Outpatient (CLI) | payer MEDICARE, OTHER, SELFPAY ==
[2020-11-18] VITALS (7 sets, daily range): BP systolic 114–152; BP diastolic 68–90; PULSE 75–90; RESP 12–19; TEMP 36.8; O2SAT 93–97
--- NOTE | 2020-11-18 15:32 | DI.RAD.S_ITS ---
PROCEDURE: PAIN L INTERLAMINAR/CAUDAL INJ INDICATIONS: L2-3 translaminar ISABEL COMPARISON: [facility], , PAIN L/S FACET INJ/BLK 1ST TRISHA, 09/13/2019, 8:54. FINDINGS: Fluoroscopic spot filming was performed to verify placement of a spinal needle at the L2-L3 level, as labeled on the films. Appropriate location of the needle tip was confirmed by injection of iodinated contrast. IMPRESSION: Intraprocedural examination within normal limits. Dictated by: Cecilio Santizo M.D. on 11/18/2020 at 15:52 Approved by: Cecilio Santizo M.D. on 11/18/2020 at 15:53
[2020-11-18] MEDS: fentaNYL 100 MCG/2 ML INJ 50 MCG IV (15:55)
[2020-11-18] MEDS: IOPAMIDOL 15 ML VIAL 3 ML INJ (15:55)
[2020-11-18] MEDS: MIDAZOLAM 5 MG/5 ML VIAL IV (15:55)
[2020-11-18] MEDS: BUPIVACAINE 0.25% (PF) VIAL 2 ML INJ (15:59)
[2020-11-18] MEDS: BETAMETHASONE 30 MG/5 ML MDV 12 MG INJ (16:00)
[2020-11-18] MEDS: DEXAMETHASONE 10 MG/ML VIAL 20 MG INJ (16:00)
--- NOTE | 2020-11-18 16:10 | P.PCN_ITS ---
Date/Time/Diagnoses Date of procedure: 11/18/20 Time of procedure: 16:10 Pre-procedure diagnosis: 1. HNP WITH RADICULAR FEATURES, 2. MULTILEVEL CENTRAL STENOSIS, Post-procedure diagnosis: same Procedure Notes Procedure: 1. FLUOROSCOPICALLY GUIDED CONTRAST CONTROLLED INTERLAMINAR EPIDURAL STEROID INJECTION - L2/3 Indications: Wilman is referred by Dr. Summers for treatment of Bilateral Foraminal Stenosis L>R LE symptoms. Physician: Edu Mclaughlin Total Fluoroscopy time (seconds): 7 Total sedation minutes: 10 Complications: none Procedure in detail & Post-procedure care: FINDINGS Multilevel Central Spinal Stenosis with Nerve Root Compression DESCRIPTION OF PROCEDURE Fluoroscopically guided, contrast-controlled L2/3 translaminar epidural steroid injection. Following review of allergy and review of potential side effects and complications, including, but not necessarily limited to, infection, allergic reaction, local tissue breakdown, temporary as well as permanent nerve injury, paralysis, stroke and possible , the patient indicated that the patient understood and agreed to proceed. An informed consent document was signed by the patient, witnessed by a nurse, and placed in the patient's chart. Additionally, other treatment options including modalities, medications, and physical therapy were reviewed with the patient. After review of previous anaesthesic history and IV conscious sedation the patient was deemed safe to proceed with today?s procedure with IV conscious sedation as ASA class II designation. Safety time-out was performed to confirm patient ID, procedure to be performed and site of procedure. IV sedation was accomplished with a combination of 2mg Versed and 50mcg of Fentanyl administered by the RN after DO order, titrated to patient comfort during the course of the procedure while the patient remained responsive to all verbal commands. In the prone position, following sterile prep and drape of the lumbar region,the L2/3 translaminar space was identified fluoroscopically. The skin was anesthetized via a 25-gauge, 1.5-inch needle with 1% lidocaine solution. At this point, a 22-gauge short bevel spinal needle was atraumatically introduced and advanced under fluoroscopic guidance into the region of the L2/3 translaminar space. Depth was confirmed on lateral view. Radiological data, including multiple fluoroscopic views of the lumbar spine, reveal a spinal needle at the L2/3 translaminar space. Lateral views then show placement of the needle in the epidural space. Subsequent views show contrast material flowing superiorly and inferiorly in the epidural space. No vascular or intrathecal uptake is observed. At this point, using loss of resistance technique with saline and air, the epidural space was entered. This was confirmed following negative aspiration with injection of approximately 1.5 cc of Isovue 200, showing excellent epidural flow without vascular or intrathecal uptake. At this point, 1 cc of 1% lidocaine solution combined with 4cc or 20mg of dexamethasone and 12mg of betamethasone was injected without incident. The patient tolerated the procedure well without signs or symptoms of complic ations prior to transfer to the recovery area continued monitoring without incident. The patient was then transferred to the recovery area where they were observed for an appropriate period of time after the injection. The patient reported a VAS score of 6 prior to the procedure and a post-procedure VAS of 0. POST OP INSTRUCTIONS The patient was provided a Pain Log to continue to record their response to the target-specific procedure prior to follow-up visit with their referring physician. Additionally, specific post-injection care instructions and a contact number to our office were provided if concerns arise regarding possible complications associated with the procedure are suspected.
== END 2020-11-18 16:34 | disposition home or self-care (01) ==
LOC: RAD 15:31
PROVIDERS: PCP Student in an Organized Health Care Education/Training Program; Referring Provider Physical Medicine & Rehabilitation; Visit Provider Physical Medicine & Rehabilitation
DX: M51.16 Intervertebral disc disorders with radiculopathy, lumbar region (principal); M48.061 Spinal stenosis, lumbar region without neurogenic claudication
CPT/HCPCS: 62323; 99152

== ENCOUNTER → 2020-12-30 11:44 | Outpatient (CLI) | payer MEDICARE, OTHER, SELFPAY ==
[2020-12-30 13:01] LABS: Prostate Specific Antigen 1.73 ng/mL (0.10-4.00)
== END ==
PROVIDERS: PCP Student in an Organized Health Care Education/Training Program; Referring Provider Specialist; Visit Provider Specialist
DX: Z85.46 Personal history of malignant neoplasm of prostate (principal)
CPT/HCPCS: 36415; 84153

== ENCOUNTER → 2021-01-19 10:43 | Outpatient (CLI) | payer MEDICARE, OTHER, SELFPAY ==
--- NOTE | 2021-01-19 10:48 | DI.NM.S_ITS ---
PROCEDURE: [place] BONE SCAN WHOLE BODY RADIOPHARMACEUTICAL: 19.6 mCi Tc-99m MDP IV. INDICATIONS: history of prostate cancer TECHNIQUE: Delayed whole-body scintigrams were obtained approximately 3-4 hours after intravenous injection of radiotracer. Anterior and posterior views were acquired from vertex to feet. Additional left and right oblique views of the pelvis and proximal femurs were obtained. COMPARISON: [place], [place], [place] BONE SCAN WHOLE BODY, 09/29/2018, 14:06. [place], [place] BONE SCAN WHOLE BODY, 09/28/2017, 14:23. [facility], CT, CT CHEST ABD PEL W CON, 01/19/2021, 12:17. FINDINGS: No lesions are identified in skull, sternum, clavicles, scapulae, ribs, bony pelvis, and visualized shafts of the long bones. There is low level increased uptake in cervical, thoracic and lumbar spine with distribution indistinguishable from degenerative disc and facet disease; early metastasis to spine could be obscured by degenerative changes. There are foci of increased periarticular activity involving shoulders, right sternoclavicular joint, wrists, hands, knees, ankles and feet, compatible with degenerative/arthritic changes. IMPRESSION: No scintigraphic findings to suggest osseous metastasis. Dictated by: Tho De Santiago M.D. on 01/19/2021 at 16:59 Approved by: Tho De Santiago M.D. on 01/19/2021 at 17:05
[2021-01-19 11:44] LABS: BUN Creatinine Ratio 18.5 (6-22); Blood Urea Nitrogen 15 mg/dL (9-20); Calcium 9.3 mg/dL (8.4-10.2); Carbon Dioxide 29 mmol/L (22-32); Chloride 103 mmol/L (98-107); Estimated Glomerular Filt Rate > 60.0 mL/min (>60); Glucose 100 mg/dL (80-110); HEMOLYSIS < 15 (0-50); Potassium 4.9 mmol/L (3.4-5.1); Sodium 140 mmol/L (137-145)
--- NOTE | 2021-01-19 12:00 | DI.CT.S_ITS ---
PROCEDURE: CT CHEST ABD PEL W CON INDICATIONS: History of prosate cancer TECHNIQUE: After the administration of oral and intravenous contrast, axial sections acquired from the supraclavicular neck to the pubic symphysis. Coronal and sagittal reformats were performed. For radiation dose reduction, the following was used: automated exposure control, adjustment of mA and/or kV according to patient size. COMPARISON: [facility], [place], [place] BONE SCAN WHOLE BODY, 01/19/2021, 14:14. [facility], CT, CT CHEST ABD PEL W CON, 09/28/2017, 10:42. FINDINGS: Image quality: Excellent. CHEST: Lower Neck: No enlarged lymph nodes. Thyroid: Within normal limits. Axillae: No enlarged lymph nodes. Chest Wall: Unremarkable. Lungs and Airways: No consolidation or suspicious nodules. Pleura: No pneumothorax or pleural effusions. Heart: Heart size is normal. No pericardial effusion. Mild to moderate coronary artery calcifications. Thoracic Vessels: Borderline aneurysmal dilatation of the ascending aorta, measuring 4.9 cm. Pulmonary arteries are normal in size. Mediastinum and Denia: No enlarged lymph nodes. Esophagus: No wall thickening. No hiatal hernia. ABDOMEN: Liver: Unremarkable. Gallbladder: Contract it, within normal limits.. Biliary ducts: Unremarkable. Pancreas: Unremarkable. Spleen: Unremarkable. Adrenal Glands: Unremarkable. Kidneys and Ureters: Unremarkable. Stomach and Bowel: Extensive sigmoid diverticulosis without evidence of diverticulitis. Peritoneum: No abnormal intraperitoneal fluid. No free air. Ventral Wall: No hernia. Abdominal Nodes: No retroperitoneal or mesenteric adenopathy by size criteria. Vessels: Aorta and inferior vena cava are normal in size. PELVIS: Pelvic Organs: Prostate implant seeds. Bladder: Unremarkable. Pelvic Nodes: No enlarged lymph nodes. Miscellaneous: No inguinal hernias are seen. Bones: Extensive lower thoracic and lumbar degenerative change. Remote L4 laminectomy. No lytic or blastic bony lesions identified. IMPRESSION: 1. Prostate implant seeds 2. No evidence of metastatic disease in the chest, abdomen, and pelvis. 3. Mild to moderate coronary artery calcifications. 4. Extensive sigmoid diverticulosis without evidence of diverticulitis. Dictated by: Zhang Castañeda M.D. on 01/19/2021 at 15:16 Approved by: Zhang Castañeda M.D. on 01/19/2021 at 15:22
[2021-01-19 12:15] LABS: Prostate Specific Antigen 1.91 ng/mL (0.10-4.00)
== END ==
PROVIDERS: PCP Student in an Organized Health Care Education/Training Program; Referring Provider Specialist; Visit Provider Specialist
DX: Z85.46 Personal history of malignant neoplasm of prostate (principal); Z01.812 Encounter for preprocedural laboratory examination; I25.10 Atherosclerotic heart disease of native coronary artery without angina pectoris; K57.30 Diverticulosis of large intestine without perforation or abscess without bleeding
CPT/HCPCS: 36415; 71260; 74177; 78306; 80048; 84153; A9503

== ENCOUNTER → 2021-03-12 10:05 | Outpatient (CLI) | payer MEDICARE, OTHER, SELFPAY | PROVIDERS: PCP Student in an Organized Health Care Education/Training Program; Referring Provider Specialist; Visit Provider Specialist | DX: R97.20 Elevated prostate specific antigen [PSA] (principal) | CPT/HCPCS: 36415; 84153 ==

== ENCOUNTER → 2021-03-31 11:17 | Outpatient (CLI) | payer MEDICARE, OTHER, SELFPAY ==
[2021-03-31 13:48] LABS: COVID19 -Nasal RAPID Negative (Negative)
== END ==
PROVIDERS: PCP Student in an Organized Health Care Education/Training Program; Visit Provider Physical Medicine & Rehabilitation
DX: Z20.822 Contact with and (suspected) exposure to COVID-19 (principal); G47.33 Obstructive sleep apnea (adult) (pediatric)
CPT/HCPCS: 87635; 99212; C9803

== ENCOUNTER 2021-04-02 07:28 | Outpatient (CLI) | payer MEDICARE, OTHER, SELFPAY ==
[2021-04-02] VITALS (14 sets, daily range): BP systolic 108–149; BP diastolic 60–78; PULSE 72–89; RESP 11–16; TEMP 36.8; O2SAT 93–96
--- NOTE | 2021-04-02 07:31 | DI.RAD.S_ITS ---
PROCEDURE: PAIN L/S MED/LAT N RFA BILAT INDICATIONS: SPONDYLOSIS COMPARISON: [facility], CT, CT CHEST ABD PEL W CON, 01/19/2021, 12:17. FINDINGS: Fluoroscopic spot filming was performed to verify placement of spinal needles on both sides at the L2, L3, and L4 levels as labeled on the films. IMPRESSION: Intraprocedural examination within normal limits. Dictated by: Cecilio Santizo M.D. on 04/02/2021 at 8:14 Approved by: Cecilio Santizo M.D. on 04/02/2021 at 8:15
[2021-04-02] MEDS: fentaNYL 100 MCG/2 ML INJ 50 MCG IV (08:15)
[2021-04-02] MEDS: BUPIVACAINE 0.5% (PF) VIAL 5 ML INJ (08:23)
[2021-04-02] MEDS: LIDOCAINE 1% 20 ML (08:23)
[2021-04-02] MEDS: MIDAZOLAM 5 MG/5 ML VIAL IV (08:44)
--- NOTE | 2021-04-02 09:00 | P.PCN_ITS ---
Date/Time/Diagnoses Date of procedure: 04/02/21 Time of procedure: 09:00 Pre-procedure diagnosis: 1. RECALCITRANT FACET ARTHROPATHY This procedure is found to meet the Governor's proclamation 20-24.2 regarding non urgent procedures. This patient meets multiple criteria for the procedure including continuing or worsening of significant or severe pain, combined with further deterioration of the patient's condition or overall health as well as delay in treatment would be expected to result in less positive ultimate medical outcome. Therefore the decision to perform the procedure in an outpatient hospital setting is found to be in accordance with guidelines of the proclamation. Post-procedure diagnosis: same Procedure Notes Procedure: 1. BILATERAL L2, L3, L4 MEDIAL BRANCH RADIOFREQUENCY NEUROTOMY Indications: Wilman is referred by Dr. Summers for treatment of facet arthropathy. Physician: Edu Mclaughlin Total Fluoroscopy time (seconds): 19 Total sedation minutes: 41 Complications: none Procedure in detail & Post-procedure care: DESCRIPTION OF PROCEDURE Bilateral L2, L3, L4 medial branch radiofrequency neurotomy The patient is well known to this clinic having undergone previous facet injecti ons with good but temporary relief. The patient has experienced appropriate, concordant relief with previous facet and median branch blocks but the patient's pain has been recalcitrant to further conservative measures. Therefore, based upon the patient's relief and persistent symptoms, the patient is considered an appropriate candidate for facet rhizotomy. All of the patient's questions regarding the risks versus benefits of the procedure, including, but not limited to, bleeding, infection, temporary as well as lasting nerve injury, paralysis, stroke, and , as well treatment alternatives were answered to satisfaction. After obtaining informed consent, denial of pertinent drug allergies, as well as being made aware of the potential risks of bleeding, infection, spinal cord trauma, paralysis, temporary and permanent nerve damage, seizure, stroke, and possible , the patient was brought to the fluoroscopy suite and positioned prone on the fluoroscopy table. The lumbar region was prepped with Betadine and covered with a fenestrated drape in the usual sterile fashion. Appropriate monitors applied including pulse oximeter, pulse, and blood pressure for regular monitoring throughout the procedure. After review of previous anaesthesic history and IV conscious sedation the patient was deemed safe to proceed with today's procedure with IV conscious sedation as ASA class II designation. Safety time-out was performed to confirm patient ID, procedure to be performed and site of procedure. IV sedation was accomplished with a combination of 4mg of Versed and 50mcg of Fentanyl administered by the RN after DO order, titrated to patient comfort during the course of the procedure while the patient remained responsive to all verbal commands. After local infiltration using 1% lidocaine, under fluoroscopic guidance, a 10- cm RF insulated needle with a 10-mm active tip was positioned parallel to the junction of the right the superior articulating process where the L4 medial branch resides. Needle placement was confirmed with motor stimulation of .5v on the right which produced local stimulation without radicular component. The stimulation was then increased to 2v with, once again, only local multifidus stimulation without radicular component. The needle was then removed and the identical procedure was performed along the length of the right L3 medial branch with motor stimulation at .7v on the right. The identical procedure was once again performed along the length of the right L2 and medial branch with motor stimulation of .5v on the right. The medial branches were then anesthetised with 0.5% marcaine. This was then followed by two discreet lesions performed at 80 degrees Celsius for 90 seconds each. The identical procedures were repeated on the left. The patient tolerated the procedure well without signs or symptoms of complications prior to transfer to the recovery area continued monitoring without incident. The patient was then transferred to the recovery area where they were observed for an appropriate period of time after the injection. The patient reported a VAS score of 9 prior to the procedure and a post-procedure VAS of 0. POST OP INSTRUCTIONS The patient was provided a Pain Log to continue to record the patient's response to the target-specific procedure prior to the patient's follow-up visit with the referring physician. Additionally, specific post-injection care instructions and a contact number to our office were provided if concerns arise regarding possible complications associated with the procedure are suspected.
== END 2021-04-02 09:20 | disposition home or self-care (01) ==
LOC: RAD 07:31
PROVIDERS: PCP Student in an Organized Health Care Education/Training Program; Referring Provider Physical Medicine & Rehabilitation; Visit Provider Physical Medicine & Rehabilitation
DX: M47.816 Spondylosis without myelopathy or radiculopathy, lumbar region (principal)
CPT/HCPCS: 64635; 64636; 99152; 99153; J2250; J3010

== ENCOUNTER → 2021-04-08 13:12 | Outpatient (CLI) | payer MEDICARE, OTHER, SELFPAY ==
[2021-04-08 15:10] LABS: Prostate Specific Antigen 4.59 ng/mL (0.10-4.00)
== END ==
PROVIDERS: PCP Student in an Organized Health Care Education/Training Program; Referring Provider Specialist; Visit Provider Specialist
DX: C61 Malignant neoplasm of prostate (principal); R97.21 Rising PSA following treatment for malignant neoplasm of prostate
CPT/HCPCS: 36415; 84153; 96372; 96402; 99215; J0897; J9155

== ENCOUNTER → 2021-04-10 12:13 | Outpatient (CLI) | payer MEDICARE, OTHER, SELFPAY ==
--- NOTE | 2021-04-10 12:16 | DI.RAD.S_ITS ---
PROCEDURE: XR DEXA AXIAL SKELETON INDICATIONS: recurrent malignant neoplasm of prostate COMPARISON: None. FINDINGS: This blank DEXA report has been sent in error by the PACS system. The correct and complete report will be forthcoming in 1-2 days. Thank you for your patience and understanding. Dictated by: James Kaplan M.D. on 04/10/2021 at 19:21 Approved by: James Kaplan M.D. on 04/10/2021 at 19:21
== END ==
PROVIDERS: PCP Student in an Organized Health Care Education/Training Program; Referring Provider Specialist; Visit Provider Specialist
DX: M85.852 Other specified disorders of bone density and structure, left thigh (principal); C61 Malignant neoplasm of prostate; R97.21 Rising PSA following treatment for malignant neoplasm of prostate
CPT/HCPCS: 77080

== ENCOUNTER → 2021-04-21 10:04 | Outpatient (CLI) | payer MEDICARE, OTHER, SELFPAY ==
[2021-04-21 12:40] LABS: COVID19 -Nasal RAPID Negative (Negative)
== END ==
PROVIDERS: PCP Student in an Organized Health Care Education/Training Program; Visit Provider Physical Medicine & Rehabilitation
DX: Z20.822 Contact with and (suspected) exposure to COVID-19 (principal)
CPT/HCPCS: 87635; C9803

== ENCOUNTER 2021-04-23 10:05 | Outpatient (CLI) | payer MEDICARE, OTHER, SELFPAY ==
[2021-04-23] VITALS (8 sets, daily range): BP systolic 126–155; BP diastolic 69–80; PULSE 74–85; RESP 10–16; TEMP 35.9; O2SAT 90–96
--- NOTE | 2021-04-23 10:08 | DI.RAD.S_ITS ---
PROCEDURE: PAIN L INTERLAMINAR/CAUDAL INJ INDICATIONS: SPONDYLOSIS COMPARISON: [facility], CR, XR LUMBAR SPINE MIN 4V, 04/11/2019, 9:00. CT, CT LUMBAR SPINE WO CON, 09/29/2018, 10:26. MR, MR LUMBAR SPINE WO CON, 05/31/2018, 9:08. FINDINGS: Fluoroscopic spot filming was performed to verify placement of spinal needles at the L3-L4 level(s), as labeled on the films. Appropriate location(s) of the needle tip(s) was confirmed by injection of iodinated contrast. IMPRESSION: Fluoroscopy for pain management. Dictated by: Tho De Santiago M.D. on 04/23/2021 at 12:18 Approved by: Tho De Santiago M.D. on 04/23/2021 at 12:19
[2021-04-23] MEDS: IOPAMIDOL 15 ML VIAL 3 ML INJ (11:30)
[2021-04-23] MEDS: BUPIVACAINE 0.25% (PF) VIAL 2 ML INJ (11:30)
[2021-04-23] MEDS: BETAMETHASONE 30 MG/5 ML MDV 6 MG INJ (11:31)
[2021-04-23] MEDS: MIDAZOLAM 5 MG/5 ML VIAL IV (11:31)
[2021-04-23] MEDS: DEXAMETHASONE 10 MG/ML VIAL 20 MG INJ (11:31)
[2021-04-23] MEDS: fentaNYL 250 MCG/5 ML INJ 50 MCG IV (11:31)
--- NOTE | 2021-04-23 11:46 | P.PCN_ITS ---
Date/Time/Diagnoses Date of procedure: 04/23/21 Time of procedure: 11:46 Pre-procedure diagnosis: 1. HNP WITH RADICULAR FEATURES, 2. MULTILEVEL CENTRAL STENOSIS, Post-procedure diagnosis: same Procedure Notes Procedure: 1. FLUOROSCOPICALLY GUIDED CONTRAST CONTROLLED INTERLAMINAR EPIDURAL STEROID INJECTION - L3/4 Indications: Wilman is referred by Dr. Summers for treatment of Bilateral Foraminal Stenosis L>R LE symptoms. Physician: Edu Mclaughlin Total Fluoroscopy time (seconds): 11 Total sedation minutes: 16 Complications: none Procedure in detail & Post-procedure care: FINDINGS Multilevel Central Spinal Stenosis with Nerve Root Compression DESCRIPTION OF PROCEDURE Fluoroscopically guided, contrast-controlled L3/4 translaminar epidural steroid injection. Following review of allergy and review of potential side effects and complications, including, but not necessarily limited to, infection, allergic reaction, local tissue breakdown, temporary as well as permanent nerve injury, paralysis, stroke and possible , the patient indicated that the patient understood and agreed to proceed. An informed consent document was signed by the patient, witnessed by a nurse, and placed in the patient's chart. Additionally, other treatment options including modalities, medications, and physical therapy were reviewed with the patient. After review of previous anaesthesic history and IV conscious sedation the patient was deemed safe to proceed with today?s procedure with IV conscious sedation as ASA class II designation. Safety time-out was performed to confirm patient ID, procedure to be performed and site of procedure. IV sedation was accomplished with a combination of 2mg of Versed was administered by the RN after DO order, titrated to patient comfort during the course of the procedure while the patient remained responsive to all verbal commands. In the prone position, following sterile prep and drape of the lumbar region, the L3/4 translaminar space was identified fluoroscopically. The skin was anesthetized via a 25-gauge, 1.5-inch needle with 1% lidocaine solution. At this point, a 22-gauge short bevel spinal needle was atraumatically introduced and advanced under fluoroscopic guidance into the region of the L3/4 translaminar space. Depth was confirmed on lateral view. Radiological data, including multiple fluoroscopic views of the lumbar spine, reveal a spinal needle at the L3/4 translaminar space. Lateral views then show placement of the needle in the epidural space. Subsequent views show contrast material flowing superiorly and inferiorly in the epidural space. No vascular or intrathecal uptake is observed. At this point, using loss of resistance technique with saline and air, the epidural space was entered. This was confirmed following negative aspiration with injection of approximately 1.5 cc of Isovue 200, showing excellent epidural flow without vascular or intrathecal uptake. At this point, 1cc of 1% lidocaine solution combined with 3cc or 20mg of dexamethasone and 6mg of betamethasone was injected without incident. The patient tolerated the procedure well without signs or symptoms of complications prior to transfer to the recovery area continued monitoring without incident. The patient was then transferred to the recovery area where they were observed for an appropriate period of time after the injection. The patient reported a VAS score of 6 prior to the procedure and a post- procedure VAS of 0. POST OP INSTRUCTIONS The patient was provided a Pain Log to continue to record their response to the target-specific procedure prior to follow-up visit with their referring physician. Additionally, specific post-injection care instructions and a contact number to our office were provided if concerns arise regarding possible complications associated with the procedure are suspected.
== END 2021-04-23 12:06 | disposition home or self-care (01) ==
LOC: RAD 10:07
PROVIDERS: PCP Student in an Organized Health Care Education/Training Program; Referring Provider Physical Medicine & Rehabilitation; Visit Provider Physical Medicine & Rehabilitation
DX: M51.16 Intervertebral disc disorders with radiculopathy, lumbar region (principal); M48.061 Spinal stenosis, lumbar region without neurogenic claudication
CPT/HCPCS: 62323; 99152; J0702; J1100; J2250; J3010

== ENCOUNTER → 2021-05-11 10:31 | Outpatient (CLI) | payer MEDICARE, OTHER, SELFPAY ==
[2021-05-11 14:00] LABS: Alanine Aminotransferase 28 IU/L (<50); Albumin 4.5 g/dL (3.5-5.0); Albumin Globulin Ratio 1.7 (1.0-2.8); Alkaline Phosphatase 74 U/L (38-126); Aspartate Aminotransferase 27 IU/L (17-59); BUN Creatinine Ratio 20.3 (6-22); Bilirubin Total 0.6 mg/dL (0.2-1.3); Bilirubin Unconjugated 0.6 mg/dL (0.0-1.1); Blood Urea Nitrogen 15 mg/dL (9-20); Calcium 9.8 mg/dL (8.4-10.2); Carbon Dioxide 32 mmol/L (22-32); Chloride 101 mmol/L (98-107); Estimated Glomerular Filt Rate > 60.0 mL/min (>60); Globulin 2.7 g/dL (1.7-4.1); Glucose 109 mg/dL (80-110); HEMOLYSIS < 15 (0-50); Potassium 4.6 mmol/L (3.4-5.1); Sodium 140 mmol/L (137-145); Total Protein 7.2 g/dL (6.3-8.2)
[2021-05-11 14:28] LABS: Prostate Specific Antigen 0.355 ng/mL (0.10-4.00)
== END ==
PROVIDERS: PCP Student in an Organized Health Care Education/Training Program; Referring Provider Specialist; Visit Provider Specialist
DX: Z85.46 Personal history of malignant neoplasm of prostate (principal); C61 Malignant neoplasm of prostate; R97.21 Rising PSA following treatment for malignant neoplasm of prostate
CPT/HCPCS: 36415; 80053; 80076; 84153

== ENCOUNTER → 2021-06-11 12:43 | Outpatient (CLI) | payer MEDICARE, OTHER, SELFPAY | PROVIDERS: PCP Student in an Organized Health Care Education/Training Program; Referring Provider Specialist; Visit Provider Specialist | DX: R97.20 Elevated prostate specific antigen [PSA] (principal) | CPT/HCPCS: 36415; 84153 ==

== ENCOUNTER → 2021-06-24 13:41 | Outpatient (CLI) | payer MEDICARE, OTHER, SELFPAY ==
[2021-06-25 16:57] LABS: Hep C Virus Ab w/Reflex Quant NEGATIVE s/c (NEGATIVE)
== END ==
PROVIDERS: PCP Student in an Organized Health Care Education/Training Program; Referring Provider Student in an Organized Health Care Education/Training Program; Visit Provider Student in an Organized Health Care Education/Training Program
DX: C61 Malignant neoplasm of prostate (principal); R97.21 Rising PSA following treatment for malignant neoplasm of prostate
CPT/HCPCS: 36415; 86803

== ENCOUNTER → 2021-07-16 13:37 | Outpatient (CLI) | payer MEDICARE, OTHER, SELFPAY ==
[2021-07-16 16:19] LABS: Prostate Specific Antigen < 0.064 ng/mL (0.10-4.00)
== END ==
PROVIDERS: PCP Student in an Organized Health Care Education/Training Program; Referring Provider Specialist; Visit Provider Specialist
DX: R97.20 Elevated prostate specific antigen [PSA] (principal)
CPT/HCPCS: 36415; 84153

== ENCOUNTER → 2021-08-19 10:21 | Outpatient (CLI) | payer MEDICARE, OTHER, SELFPAY ==
[2021-08-19 12:23] LABS: Prostate Specific Antigen < 0.064 ng/mL (0.10-4.00)
== END ==
PROVIDERS: PCP Student in an Organized Health Care Education/Training Program; Referring Provider Specialist; Visit Provider Specialist
DX: R97.20 Elevated prostate specific antigen [PSA] (principal)
CPT/HCPCS: 36415; 84153

== ENCOUNTER → 2021-10-01 13:59 | Outpatient (CLI) | payer MEDICARE, OTHER, SELFPAY ==
[2021-10-01 16:42] LABS: Prostate Specific Antigen < 0.064 ng/mL (0.10-4.00)
== END ==
PROVIDERS: PCP Student in an Organized Health Care Education/Training Program; Referring Provider Specialist; Visit Provider Specialist
DX: N40.0 Benign prostatic hyperplasia without lower urinary tract symptoms (principal)
CPT/HCPCS: 36415; 84153

== ENCOUNTER → 2021-12-03 16:47 | Outpatient (CLI) | payer MEDICARE, OTHER, SELFPAY ==
--- NOTE | 2021-12-03 16:51 | DI.MRI.S_ITS ---
PROCEDURE: MR LUMBAR SPINE WO CON INDICATIONS: progressive lumbar stenosis TECHNIQUE: Noncontrast sagittal T1 spin echo and T2 fast echo, sagittal STIR, and T2 fast spin echo through the lumbar spine. In cases with scoliosis, additional coronal T2 fast spin echo may be performed. COMPARISON: Outside Facility, RG, CT PET CT PROSTATE AXUMIN, 03/26/2021, 15:00. [facility], MR, MR LUMBAR SPINE WO CON, 05/31/2018, 9:08. FINDINGS: Image quality: Excellent. Alignment and Curvature: There is approximately 14? leftward curvature of the lumbar spine centered at L2. There is loss of the expected lumbar lordosis. Bone Marrow: Marrow is of normal overall signal. A T1/T2 1.5 cm in diameter lesion is present within the posterior right aspect of the L4 vertebral body (series 6/image 25). This likely corresponds with a sclerotic focus on the comparison PET-CT dated March 26, 2021. There is some fatty marrow replacement at L4 and L5. There is partial fusion of L4-L5, similar to the study dated May 31, 2018. No acute vertebral body compression fractures. Spinal Cord: Conus medullaris terminates at the L1 level. Visualized cord demonstrates normal signal and size. The conus appears posteriorly displaced at the level of L3-4 through S1. Additionally, the nerve roots appear clumped along the posterior lateral margins of the thecal sac. Paraspinous Soft Tissues: No paravertebral masses. T12-L1: Severe disc desiccation and height loss. Severe facet ligamentum flavum hypertrophy. Mild canal stenosis. No foraminal stenosis. Findings are unchanged from the 2019 study. L1-L2: Severe disc desiccation and height loss. Vacuum disc phenomenon. Severe facet ligamentum flavum hypertrophy. Epidural lipomatosis. Moderate canal stenosis. No neural foraminal stenosis. Findings are slightly increased in extent when compared with the prior study. L2-L3: Moderate disc desiccation and height loss. Vacuum disc phenomenon. Severe facet ligamentum flavum hypertrophy. Mild canal stenosis. Severe right foraminal narrowing. No left neural foraminal stenosis. The degree of right neural foraminal stenosis is slightly increased when compared with the prior study. L3-L4: Severe disc desiccation and height loss. Severe facet ligamentum flavum hypertrophy. Patient is status post laminectomy. No canal stenosis. Moderate right and mild left foraminal stenosis. Findings are similar in extent to the prior study. L4-L5: Partial fusion of the intervertebral disc space. Status post laminectomy. No canal stenosis. Mild bilateral foraminal stenosis. L5-S1: Severe disc desiccation and height loss. Moderate facet sclerosis. No canal stenosis. Moderate bilateral foraminal narrowing. IMPRESSION: 1. Clumping of the nerve roots at the level of 3 4 through S1 suspicious for arachnoiditis. 2. Multilevel severe disc desiccation and height loss with multilevel vacuum disc phenomenon and partial fusion at L4-5. 3. Increased canal stenosis at L1-2 when compared with the prior study secondary to disc bulge and facet and ligamentum flavum hypertrophy. 4. Increased right neural foraminal stenosis at L2-3, severe in degree when compared with the prior study. 5. New T1/T2 hypointense lesion within the L4 vertebral body when compared with the MRI from 2019 suspicious for a sclerotic bone lesion. 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 Dictated by: Charlotte Zaragoza M.D. on 12/04/2021 at 11:25 Approved by: Charlotte Zaragoza M.D. on 12/04/2021 at 13:30
== END ==
PROVIDERS: PCP Student in an Organized Health Care Education/Training Program; Referring Provider Physical Medicine & Rehabilitation; Visit Provider Physical Medicine & Rehabilitation
DX: M51.26 Other intervertebral disc displacement, lumbar region (principal); M48.061 Spinal stenosis, lumbar region without neurogenic claudication; M89.9 Disorder of bone, unspecified; Z85.46 Personal history of malignant neoplasm of prostate
CPT/HCPCS: 72148

== ENCOUNTER → 2021-12-11 12:54 | Outpatient (CLI) | payer MEDICARE, OTHER, SELFPAY ==
--- NOTE | 2021-12-11 12:56 | DI.NM.S_ITS ---
PROCEDURE: IN BONE SCAN WHOLE BODY RADIOPHARMACEUTICAL: 20.6 mCi Tc-99m MDP IV. INDICATIONS: hx of prostate CA and NEW lubar lesion on MRI TECHNIQUE: Delayed whole-body scintigrams were obtained approximately 3-4 hours after intravenous injection of radiotracer. Anterior and posterior views were acquired from vertex to feet. Additional left and right oblique views of the lumbar spine were obtained. COMPARISON: [facility], , MR LUMBAR SPINE WO CON, 12/03/2021, 16:56. Outside Facility, RG, CT PET CT PROSTATE AXUMIN, 03/26/2021, 15:00. [facility], [place], [place] BONE SCAN WHOLE BODY, 01/19/2021, 14:14. FINDINGS: No lesions are identified in skull, sternum, clavicles, scapulae, ribs, bony pelvis, and visualized shafts of the long bones. There are foci of increased uptake in cervical, thoracic and lumbar spine most likely secondary to degenerative disc and facet disease; early metastasis to spine could be obscured by degenerative changes. There are foci of increased periarticular activity, compatible with degenerative/arthritic changes. IMPRESSION: No significant change in bone scan when compared to the last exam. The new lumbar lesion seen on MRI remains suspicious for metastatic disease as early metastasis could be obscured by superimposed degenerative changes. Dictated by: Tho De Santiago M.D. on 12/11/2021 at 17:20 Approved by: Tho De Santiago M.D. on 12/11/2021 at 18:40
== END ==
PROVIDERS: PCP Student in an Organized Health Care Education/Training Program; Referring Provider Physical Medicine & Rehabilitation; Visit Provider Physical Medicine & Rehabilitation
DX: C61 Malignant neoplasm of prostate (principal); M51.26 Other intervertebral disc displacement, lumbar region; R97.21 Rising PSA following treatment for malignant neoplasm of prostate; M89.9 Disorder of bone, unspecified
CPT/HCPCS: 78306; A9503

== ENCOUNTER → 2021-12-23 14:15 | Outpatient (CLI) | payer MEDICARE, OTHER, SELFPAY ==
[2021-12-23 15:51] LABS: Prostate Specific Antigen < 0.064 ng/mL (0.10-4.00)
== END ==
PROVIDERS: PCP Student in an Organized Health Care Education/Training Program; Referring Provider Specialist; Visit Provider Specialist
DX: R39.9 Unspecified symptoms and signs involving the genitourinary system (principal); Z85.46 Personal history of malignant neoplasm of prostate
CPT/HCPCS: 36415; 84153

== ENCOUNTER → 2022-04-07 09:17 | Outpatient (CLI) | payer MEDICARE, OTHER, SELFPAY ==
[2022-04-07 12:19] LABS: Prostate Specific Antigen < 0.064 ng/mL (0.10-4.00)
== END ==
PROVIDERS: PCP Student in an Organized Health Care Education/Training Program; Referring Provider Specialist; Visit Provider Specialist
DX: C61 Malignant neoplasm of prostate (principal)
CPT/HCPCS: 36415; 84153

== ENCOUNTER → 2022-07-07 15:36 | Outpatient (CLI) | payer MEDICARE, OTHER, SELFPAY ==
--- NOTE | 2022-07-07 15:38 | DI.US.S_ITS ---
PROCEDURE: US ABDOMEN LIMITED INDICATIONS: LOWER LEFT BACK LUMP TECHNIQUE: Real-time focused scanning was performed of the abdomen, with image documentation. COMPARISON: None. FINDINGS: At the patient indicated area of concern, the superficial soft tissues of the left lower back, in ill-defined region of heterogeneous echotexture is present which appears to abut the skin surface involving the dermis and subcutaneous fat. Approximate dimensions of 1.9 x 1.0 x 5.6 cm. Possible tract to the skin surface on cine images. No drainable fluid collection identified in this area. IMPRESSION: Nonspecific region of heterogeneous echotexture measuring approximately 5.6 cm within the superficial soft tissues at the patient indicated area of concern. Specific diagnosis may not be possible by imaging alone. Clinical follow-up is recommended, could consider tissue sampling if clinically indicated, repeat imaging could be obtained as clinically indicated. Per manufacturing engineering director notes, patient notes that this finding appears to be diminishing with antibiotics, and phlegmon or improving infectious/inflammatory change are possible. Dictated by: James Burrows M.D. on 07/07/2022 at 18:19 Approved by: James Burrows M.D. on 07/07/2022 at 18:29
== END ==
PROVIDERS: PCP Pediatrics; Referring Provider Nurse Practitioner Family; Visit Provider Nurse Practitioner Family
DX: R23.4 Changes in skin texture (principal)
CPT/HCPCS: 76705

== ENCOUNTER → 2022-10-06 10:18 | Outpatient (CLI) | payer MEDICARE, OTHER, SELFPAY ==
[2022-10-06 12:04] LABS: Prostate Specific Antigen < 0.064 ng/mL (0.10-4.00)
== END ==
PROVIDERS: PCP Pediatrics; Referring Provider Specialist; Visit Provider Specialist
DX: C61 Malignant neoplasm of prostate (principal)
CPT/HCPCS: 36415; 84153

== ENCOUNTER → 2022-10-19 11:34 | Outpatient (CLI) | payer MEDICARE, OTHER, SELFPAY ==
[2022-10-19 12:39] LABS: Add Manual Diff / Slide Review NO; Basophils Absolute Auto 0 /uL (0-100); Basophils Percent Auto 0.3 % (0-2); Eosinophils Absolute Auto 100 /uL (0-450); Hematocrit 38.6 % (41-53); Hemoglobin 13.6 g/dL (13.5-17.5); Lymphocytes Absolute Auto 1000 /uL (1100-4500); Lymphocytes Percent Auto 10.1 % (25-40); Mean Corpuscular HGB Conc 35.1 % (30-36); Mean Corpuscular Hemoglobin 32.7 PG (26-34); Mean Corpuscular Volume 93.1 fL (80-100); Monocytes Absolute Auto 600 /uL (0-900); Monocytes Percent Auto 6.3 % (3-14); Neutrophils Absolute Auto 8100 /uL (1500-7000); Neutrophils Percent Auto 82.3 % (50-75); Platelet Count 199 X10^3/uL (150-400); Red Blood Cell Count 4.15 X10^6/uL (4.5-5.9); White Blood Cell Count 9.8 X10^3/uL (4.5-11.0)
[2022-10-19 13:04] LABS: Alanine Aminotransferase 26 IU/L (<50); Albumin 4.2 g/dL (3.5-5.0); Albumin Globulin Ratio 1.6 (1.0-2.8); Alkaline Phosphatase 90 U/L (38-126); Aspartate Aminotransferase 25 IU/L (17-59); BUN Creatinine Ratio 23.7 (6-22); Bilirubin Total 0.4 mg/dL (0.2-1.3); Blood Urea Nitrogen 14 mg/dL (9-20); Calcium 9.2 mg/dL (8.4-10.2); Carbon Dioxide 28 mmol/L (22-32); Chloride 102 mmol/L (98-107); Estimated Glomerular Filt Rate > 60 mL/min (>60); Globulin 2.7 g/dL (1.7-4.1); Glucose 111 mg/dL (80-110); HEMOLYSIS < 15 (0-50); Potassium 4.8 mmol/L (3.4-5.1); Sodium 139 mmol/L (137-145); Total Protein 6.9 g/dL (6.3-8.2)
[2022-10-19 13:07] LABS: Erythrocyte Sedimentation Rate 29 MM/HR (0-15)
[2022-10-19 13:16] LABS: Vitamin D 25 Hydroxy (D3) 35.4 ng/mL (30.0-100.0)
== END ==
PROVIDERS: PCP Pediatrics; Referring Provider Pediatrics; Visit Provider Pediatrics
DX: E55.9 Vitamin D deficiency, unspecified; C61 Malignant neoplasm of prostate; G89.29 Other chronic pain; M48.062 Spinal stenosis, lumbar region with neurogenic claudication; R39.9 Unspecified symptoms and signs involving the genitourinary system
CPT/HCPCS: 36415; 80053; 82306; 85025; 85651

== ENCOUNTER → 2022-10-26 | Outpatient (CLI) | payer MEDICARE, OTHER, SELFPAY ==
--- NOTE | 2022-10-26 12:16 | DI.RAD.S_ITS ---
Bone Density Report Name: ATILIO DAVENPORT Age: 72 Sex: Male Ethnicity: White Date of : 1950 Indication: screening for osteoporosis; history of glucocorticoids; Referring Provider: PALAK AYALA Study: Bone densitometry was performed. Exam Date: October 26, 2022 Accession number: [id number] Bone Density: Region BMD T-score Z-score Classification AP Spine(L1, L2, L4) 1.112 0.7 1.1 Normal Femoral Neck (Left) 0.614 -2.1 -1.1 Osteopenia Total Hip (Left) 0.876 -0.5 -0.4 Normal Femoral Neck (Right) 0.753 -0.9 -0.1 Normal Total Hip (Right) 0.955 0.1 0.1 Normal Total Hip Mean 0.916 -0.2 -0.2 Normal Total Forearm (Left) 0.599 0.4 -0.5 Normal 1/3 Forearm (Left) 0.814 2.0 1.3 Normal UD Forearm (Left) 0.378 -1.1 -1.5 Osteopenia World Health Organization criteria for BMD impression classify patients as: Normal (T-score at or above -1.0), Osteopenia (T-score between -1.0 and -2.5), or Osteoporosis (T-score at or below -2.5). 10-year Fracture Risk(1): Major Osteoporotic Fracture 12% Hip Fracture 3.9% Reported Risk Factors: [place] (), Neck BMD=0.614, BMI=37.7, glucocorticoids (1) FRAX(R) Version 3.08. Fracture probability calculated for an untreated patient. Fracture probability may be lower if the patient has received treatment. Previous Exams: -- Region Exam Age BMD T-score BMD Change BMD Change Date g/cm2 vs Baseline vs Previous -- AP Spine (L1-L2,L4) 10/26/2022 72 1.112 0.7 -0.097 (-8.0%)# -0.097 (-8.0%)# 04/10/2021 70 1.209 1.6 Total Hip(Left) 10/26/2022 72 0.876 -0.5 0.025 (3.0%)# 0.025 (3.0%)# 04/10/2021 70 0.851 -0.7 Total Hip(Right) 10/26/2022 72 0.955 0.1 0.058 (6.4%)# 0.058 (6.4%)# 04/10/2021 70 0.897 -0.4 -- *Denotes significance at 95% confidence level, LSC for AP Spine = 0.022 g/cm2, LSC for Total Hip = 0.027 g/cm2 # Denotes dissimilar scan types or analysis methods Impression: The patient has low bone mass, based on the Left Femoral Neck T-score. The patient has an estimated ten-year risk of hip fracture of 3.9% and an estimated ten-year risk of major fracture of 12%, based on the WHO FRAX algorithm. The patient has risk factors, including: history of glucocorticoid therapy. No significant bone loss was observed. Discussion: BONE DENSITY IS LOW AT ONE OR MORE SKELETAL SITES. THE PATIENT'S BMD AND CLINICAL RISK FACTORS CONTRIBUTE TO THIS PATIENT'S INCREASED RISK OF FRACTURE. This patient's lowest T-score is low at one or more skeletal sites. It meets the World Health Organization's (WHO) criteria for low bone mass (T-score between -1.0 and -2.5). The patient's 10-year risk of hip fracture as calculated by FRAX exceeds the threshold where pharmacological therapy is recommended by the National Osteoporosis Foundation (NOF). However, all treatment decisions require clinical judgment and consideration of individual patient factors, including patient preferences, comorbidities, previous drug use, risk factors not captured in the FRAX model (e.g., frailty, falls, vitamin D deficiency, increased bone turnover, interval significant decline in bone density) and possible under or overestimation of fracture risk by FRAX. The patient should follow a healthful lifestyle (good nutrition with adequate calcium and vitamin D, and appropriate weight-bearing exercise). Follow-Up: Consider repeating this study in 2 years to reassess this patient's status, or sooner if there is some new clinical indication. Reported by: JESIKA MONTELONGO M.D. on 10/26/2022 12:56:00 PM.
== END ==
PROVIDERS: PCP Pediatrics; Referring Provider Pediatrics; Visit Provider Pediatrics
DX: C61 Malignant neoplasm of prostate (principal); M85.852 Other specified disorders of bone density and structure, left thigh; E55.9 Vitamin D deficiency, unspecified; G89.29 Other chronic pain; M48.062 Spinal stenosis, lumbar region with neurogenic claudication; I10 Essential (primary) hypertension; R39.9 Unspecified symptoms and signs involving the genitourinary system; E66.9 Obesity, unspecified; Z92.241 Personal history of systemic steroid therapy; Z92.23 Personal history of estrogen therapy
CPT/HCPCS: 77080; 77081

== ENCOUNTER 2022-11-09 14:37 | Outpatient (CLI) | payer MEDICARE, OTHER, SELFPAY ==
[2022-11-09] VITALS (8 sets, daily range): BP systolic 122–142; BP diastolic 70–88; PULSE 83–98; RESP 15–21; TEMP 36.1; O2SAT 92–99
--- NOTE | 2022-11-09 14:38 | DI.RAD.S_ITS ---
PROCEDURE: PAIN L INTERLAMINAR/CAUDAL INJ INDICATIONS: SPONDYLOSIS COMPARISON: [facility], XA, PAIN L INTERLAMINAR/CAUDAL INJ, 04/23/2021, 12:29. FINDINGS: Fluoroscopic spot filming was performed to verify placement of a spinal needle at the L3-L4 level, as labeled on the films. Appropriate location of the needle tip was confirmed by injection of iodinated contrast. IMPRESSION: Intraprocedural examination within normal limits. Dictated by: Cecilio Santizo M.D. on 11/09/2022 at 19:01 Approved by: Cecilio Santizo M.D. on 11/09/2022 at 19:01
[2022-11-09] MEDS: MIDAZOLAM 2 MG/2 ML VIAL IV (15:27)
[2022-11-09] MEDS: iopamidoL 15 ML VIAL 3 ML INJ (15:29)
[2022-11-09] MEDS: DEXAMETHASONE 10 MG/ML VIAL 20 MG INJ (15:29)
--- NOTE | 2022-11-09 15:43 | P.PCN_ITS ---
Date/Time/Diagnoses Date of procedure: 11/09/22 Time of procedure: 15:43 Pre-procedure diagnosis: 1. HNP WITH RADICULAR FEATURES, 2. MULTILEVEL CENTRAL STENOSIS, Post-procedure diagnosis: same Procedure Notes Procedure: 1. FLUOROSCOPICALLY GUIDED CONTRAST CONTROLLED INTERLAMINAR EPIDURAL STEROID INJECTION - L3/4 Indications: Wilman is referred by Dr. Rae for treatment of Bilateral Foraminal Stenosis L>R LE symptoms. Physician: Edu Mclaughlin Total Fluoroscopy time (seconds): 8 Total sedation minutes: 10 Complications: none Procedure in detail & Post-procedure care: FINDINGS Multilevel Central Spinal Stenosis with Nerve Root Compression DESCRIPTION OF PROCEDURE Fluoroscopically guided, contrast-controlled L3/4 translaminar epidural steroid injection. Following review of allergy and review of potential side effects and complications, including, but not necessarily limited to, infection, allergic reaction, local tissue breakdown, temporary as well as permanent nerve injury, paralysis, stroke and possible , the patient indicated that the patient understood and agreed to proceed. An informed consent document was signed by the patient, witnessed by a nurse, and placed in the patient's chart. Additionally, other treatment options including modalities, medications, and physical therapy were reviewed with the patient. After review of previous anaesthesic history and IV conscious sedation the patient was deemed safe to proceed with today?s procedure with IV conscious sedation as ASA class II designation. Safety time-out was performed to confirm patient ID, procedure to be performed and site of procedure. IV sedation was accomplished with a combination of 2mg of Versed was administered by the RN after DO order, titrated to patient comfort during the course of the procedure while the patient remained responsive to all verbal commands. In the prone position, following sterile prep and drape of the lumbar region, the L3/4 translaminar space was identified fluoroscopically. The skin was anesthetized via a 25-gauge, 1.5-inch needle with 1% lidocaine solution. At this point, a 22-gauge short bevel spinal needle was atraumatically introduced and advanced under fluoroscopic guidance into the region of the L3/4 translaminar space. Depth was confirmed on lateral view. Radiological data, including multiple fluoroscopic views of the lumbar spine, reveal a spinal needle at the L3/4 translaminar space. Lateral views then show placement of the needle in the epidural space. Subsequent views show contrast material flowing superiorly and inferiorly in the epidural space. No vascular or intrathecal uptake is observed. At this point, using loss of resistance technique with saline and air, the epidural space was entered. This was confirmed following negative aspiration with injection of approximately 1.5 cc of Isovue 200, showing excellent epidural flow without vascular or intrathecal uptake. At this point, 1cc of 1% lidocaine solution combined with 2cc or 20mg of dexamethasone was injected without incident. The patient tolerated the procedure well without signs or symptoms of complications prior to transfer to the recovery area continued monitoring without incident. The patient was then transferred to the recovery area where they were observed for an appropriate period of time after the injection. The patient reported a VAS score of 6 prior to the procedure and a post- procedure VAS of 0. POST OP INSTRUCTIONS The patient was provided a Pain Log to continue to record their response to the target-specific procedure prior to follow-up visit with their referring physician. Additionally, specific post-injection care instructions and a contact number to our office were provided if concerns arise regarding possible complications associated with the procedure are suspected.
--- NOTE | 2022-11-09 16:11 | PC.NURSE ---
Patient received post injection with c/o bilateral numbness and weakness. Dr. Mclaughlin aware. 3 person max assist from WC to recliner. Care ongoing.
== END 2022-11-09 16:47 | disposition home or self-care (01) ==
PROVIDERS: PCP Pediatrics; Referring Provider Physical Medicine & Rehabilitation; Visit Provider Physical Medicine & Rehabilitation
DX: M51.16 Intervertebral disc disorders with radiculopathy, lumbar region (principal); M48.061 Spinal stenosis, lumbar region without neurogenic claudication
CPT/HCPCS: 62323; 99152; J1100; J2250

== ENCOUNTER → 2023-02-05 11:12 | Outpatient (CLI) | payer MEDICARE, OTHER, SELFPAY ==
--- NOTE | 2023-02-05 11:14 | DI.CT.S_ITS ---
PROCEDURE: CT PEL WO CON INDICATIONS: HIP PAIN hx prostate cancer TECHNIQUE: Noncontrast 3 mm axial sections acquired through the bony pelvis, with coronal and sagittal reformatting. COMPARISON: [facility], MR, MR PELVIS WO/W CON, 02/05/2023, 11:44. FINDINGS: Image quality: Excellent. Bones: No aggressive osseous lesion is seen. No acute bony fracture or dislocation. Degenerative changes are seen in the hips, sacroiliac joints, pubic symphysis, and the included lumbar spine. Postsurgical changes are noted at the lumbar spine. Soft tissues: Metal markers are seen in the region of the prostate. Seminal vesicles appear grossly symmetric. No significant enlarged pelvic or inguinal lymph nodes are seen. Numerous diverticula are seen in the colon without signs of acute diverticulitis. Aortic atherosclerotic calcifications are present. IMPRESSION: 1. No aggressive osseous lesion is seen to suggest osseous metastatic disease. No pelvic lymphadenopathy. 2. Moderate bilateral hip osteoarthrosis. Degenerative changes are seen in the pubic symphysis, sacroiliac joints, and included lumbar spine. 3. Colonic diverticulosis. Approved by: James Kaplan M.D. on 02/05/2023 at 22:01
--- NOTE | 2023-02-05 11:15 | DI.MRI.S_ITS ---
PROCEDURE: MR PELVIS WO/W CON INDICATIONS: HIP PAIN hx prostate cancer TECHNIQUE: Noncontrast coronal T1 spin echo and STIR, sagittal T1 spin echo with fat saturation and STIR, axial T1 spin echo and T2 fast spin echo with fat saturation. After the administration of contrast, axial/sagittal/coronal T1 spin echo with fat saturation through the pelvis . COMPARISON: [facility], CT, CT PEL WO CON, 02/05/2023, 11:22. FINDINGS: Image quality: Good Bones: Pelvic ring: Overall intact Femoral head and neck: Prominence of the bilateral head neck junctions bilaterally Nonspecific signal abnormalities seen in both femoral shafts, relatively symmetric, which may represent infarcts. No displaced fracture. No suspicious enhancement. Ligamentum teres: Intact. Lumbar spine and sacrum: Partially seen degenerative changes. Suspected radiation changes in the marrow signal in the pelvis and sacrum. Tendons: Abductors: Intact. No bursitis. Adductors and rectus abdominis: Intact. Degenerative changes suspected at the pubic symphysis without acute edema. IT band: Intact. Iliopsoas: Intact. No bursitis. Hamstrings: Mild tendinopathy at the origins. Rectus femoris: Intact. Sartorius: Intact. Joint: Joint space: No significant effusion. Labrum: Not well evaluated. Cartilage: [id number] degenerative changes, overall not well evaluated. Soft tissues: Quadratus femoris: No edema or atrophy. Piriformis: Symmetric. Intrapelvic structures: Prostate is not well evaluated. Colonic diverticula and likely chronic wall thickening representing chronic diverticular disease, consider correlation with age-appropriate colonoscopy results. IMPRESSION: Scattered degenerative changes of the hips and pubic symphysis. No acute edema. No suspicious enhancement to suggest active metastasis. If there is concern for occult prostate cancer recurrence or metastatic disease, consider PSMA PET-CT. Prominence of the bilateral head neck junctions of the femur, likely related to degeneration, can also be associated with impingement. Consider MR arthrogram if there is concern for labral pathology. Heterogeneous marrow attenuation of the proximal femurs and pelvis, possibly related to bone infarcts and post radiation changes. Dictated by: Gonzalo Ordaz M.D. on 02/07/2023 at 9:52 Approved by: Gonzalo Ordaz M.D. on 02/07/2023 at 10:03
== END ==
PROVIDERS: Referring Provider Neurological Surgery; Visit Provider Neurological Surgery
DX: M16.0 Bilateral primary osteoarthritis of hip (principal); K57.90 Diverticulosis of intestine, part unspecified, without perforation or abscess without bleeding; M47.816 Spondylosis without myelopathy or radiculopathy, lumbar region; M25.551 Pain in right hip
CPT/HCPCS: 72192; 72197; A9579

== ENCOUNTER → 2023-04-08 09:13 | Outpatient (CLI) | payer MEDICARE, OTHER, SELFPAY ==
[2023-04-08 10:57] LABS: C-Reactive Protein Quant 1.3 mg/dL (<1.0)
[2023-04-08 10:58] LABS: Rheumatoid Factor < 8.6 IU/mL (<12.0)
[2023-04-08 11:15] LABS: Erythrocyte Sedimentation Rate 41 MM/HR (0-15)
[2023-04-08 11:24] LABS: Prostate Specific Antigen < 0.064 ng/mL (0.10-4.00)
[2023-04-13 16:01] LABS: ANA Screen, IFA Negative (.)
== END ==
PROVIDERS: Family Medicine; Referring Provider Specialist; Visit Provider Specialist
DX: M54.50 Low back pain, unspecified (principal); G89.29 Other chronic pain; Z85.46 Personal history of malignant neoplasm of prostate
CPT/HCPCS: 36415; 84153; 85651; 86038; 86140; 86430

== ENCOUNTER → 2023-04-27 09:50 | Outpatient (CLI) | payer MEDICARE, OTHER, SELFPAY ==
[2023-04-27 11:42] LABS: Cholesterol 172 mg/dL (140-199); HDL Cholesterol 44 mg/dL (40-60); LDL Cholesterol Calculated 96 mg/dL (<100); Triglycerides 158 mg/dL (35-150)
== END ==
PROVIDERS: PCP Student in an Organized Health Care Education/Training Program; Referring Provider Family Medicine; Visit Provider Family Medicine
DX: R73.03 Prediabetes (principal); E78.5 Hyperlipidemia, unspecified
CPT/HCPCS: 36415; 80061; 83036

== ENCOUNTER → 2023-08-17 08:42 | Outpatient (CLI) | payer MEDICARE, OTHER, SELFPAY ==
--- NOTE | 2023-08-17 08:44 | DI.RAD.S_ITS ---
PROCEDURE: XR SHOULDER LT MIN 2V INDICATIONS: Left AC joint DJD TECHNIQUE: 3 views of the shoulder were acquired. COMPARISON: [facility], CR, XR SHOULDER LT MIN 2V, 01/31/2019, 10:32. FINDINGS: Bones: No fractures or dislocations. No suspicious bony lesions. Visualized ribs appear intact. There are moderate degenerative changes involving the acromioclavicular and glenohumeral joints. Moderate hypertrophic changes of the acromioclavicular joint. Coracoclavicular and acromioclavicular intervals are maintained. Soft tissues: No suspicious soft tissue calcifications. IMPRESSION: Moderate degenerative changes of the acromioclavicular and glenohumeral joints. No acute fracture or dislocation. Dictated by: Valentino Vega M.D. on 08/17/2023 at 10:55 Approved by: Valentino Vega M.D. on 08/17/2023 at 10:56
== END ==
PROVIDERS: PCP Internal Medicine; Referring Provider Physical Medicine & Rehabilitation; Visit Provider Physical Medicine & Rehabilitation
DX: M75.42 Impingement syndrome of left shoulder (principal)
CPT/HCPCS: 73030

== ENCOUNTER 2023-09-27 13:26 | Outpatient (CLI) | payer MEDICARE, OTHER, SELFPAY ==
[2023-09-27] VITALS (14 sets, daily range): BP systolic 104–138; BP diastolic 63–91; PULSE 77–104; RESP 14–23; TEMP 36.2; O2SAT 92–98
--- NOTE | 2023-09-27 14:00 | DI.RAD.S_ITS ---
PROCEDURE: PAIN L INTERLAMINAR/CAUDAL INJ INDICATIONS: SPONDYLOSIS COMPARISON: [facility], XA, PAIN L INTERLAMINAR/CAUDAL INJ, 11/09/2022, 15:28. FINDINGS: Fluoroscopic spot filming was performed to verify placement of spinal needles at the L3-L4 level(s), as labeled on the films. Contrast was injected to verify position. IMPRESSION: Spinal needle at the L3-L4 level. Please see operative report for details. Dictated by: Johan Rubi M.D. on 09/27/2023 at 17:04 Approved by: Johan Rubi M.D. on 09/27/2023 at 17:04
[2023-09-27] MEDS: BUPIVACAINE 0.25% (PF) VIAL 2 ML INJ (14:36)
[2023-09-27] MEDS: iopamidoL 15 ML VIAL 3 ML INJ (14:36)
[2023-09-27] MEDS: DEXAMETHASONE 10 MG/ML VIAL INJ (14:37)
[2023-09-27] MEDS: BETAMETHASONE 30 MG/5 ML MDV 6 MG INJ (14:37)
--- NOTE | 2023-09-27 15:06 | P.PCN_ITS ---
Date/Time/Diagnoses Date of procedure: 09/27/23 Time of procedure: 15:06 Pre-procedure diagnosis: 1. HNP WITH RADICULAR FEATURES, 2. MULTILEVEL CENTRAL STENOSIS, Post-procedure diagnosis: same Procedure Notes Procedure: 1. FLUOROSCOPICALLY GUIDED CONTRAST CONTROLLED INTERLAMINAR EPIDURAL STEROID INJECTION - L3/4 Indications: Wilman is referred by Dr. Denney for treatment of Bilateral Foraminal Stenosis L>R LE symptoms. Physician: Edu Mclaughlin Total Fluoroscopy time (seconds): 20 Total sedation minutes: 0 Complications: none Procedure in detail & Post-procedure care: FINDINGS Multilevel Central Spinal Stenosis with Nerve Root Compression DESCRIPTION OF PROCEDURE Fluoroscopically guided, contrast-controlled L3/4 translaminar epidural steroid injection. Following review of allergy and review of potential side effects and complications, including, but not necessarily limited to, infection, allergic reaction, local tissue breakdown, temporary as well as permanent nerve injury, paralysis, stroke and possible , the patient indicated that the patient understood and agreed to proceed. An informed consent document was signed by the patient, witnessed by a nurse, and placed in the patient's chart. Additionally, other treatment options including modalities, medications, and physical therapy were reviewed with the patient. After review of previous anaesthesic history and IV conscious sedation the patient was deemed safe to proceed with today?s procedure with IV conscious sedation as ASA class II designation. Safety time-out was performed to confirm p atient ID, procedure to be performed and site of procedure. IV sedation was not administered by the RN after DO order, titrated to patient comfort during the course of the procedure while the patient remained responsive to all verbal commands. In the prone position, following sterile prep and drape of the lumbar region, the L3/4 translaminar space was identified fluoroscopically. The skin was an esthetized via a 25-gauge, 1.5-inch needle with 1% lidocaine solution. At this point, a 22-gauge short bevel spinal needle was atraumatically introduced and advanced under fluoroscopic guidance into the region of the L3/4 translaminar space. Depth was confirmed on lateral view. Radiological data, including multiple fluoroscopic views of the lumbar spine, reveal a spinal needle at the L3/4 translaminar space. Lateral views then show placement of the needle in the epidural space. Subsequent views show contrast material flowing superiorly and inferiorly in the epidural space. No vascular or intrathecal uptake is observed. At this point, using loss of resistance technique with saline and air, the epidural space was entered. This was confirmed following negative aspiration with injection of approximately 1.5 cc of Isovue 200, showing excellent epidural flow without vascular or intrathecal uptake. At this point, 1cc of 1% lidocaine solution combined with 2cc or 10mg of dexamethasone and 6mg of betamethasone was injected without incident. The patient tolerated the procedure well without signs or symptoms of complications prior to transfer to the recovery area continued monitoring without incident. The patient was then transferred to the recovery area where they were observed for an appropriate period of time after the injection. The patient reported a VAS score of 6 prior to the procedure and a post- procedure VAS of 0. POST OP INSTRUCTIONS The patient was provided a Pain Log to continue to record their response to the target-specific procedure prior to follow-up visit with their referring physician. Additionally, specific post-injection care instructions and a contact number to our office were provided if concerns arise regarding possible complications associated with the procedure are suspected.
--- NOTE | 2023-09-27 15:20 | PC.NURSE ---
It was noted by the procedure nurse when the patient stood up from the procedure table to transfer to the that he had some right leg weakness. Right leg weakness noted on transfer from to recliner in the post injection area. Dr. Arnoldo ruiz.
--- NOTE | 2023-09-27 15:44 | PC.NURSE ---
Patient's leg numbness/weakness reassessed at 1539 by having patient stand up from the recliner with 2 person minimal assist and patient took steps in place. Patient's numbness and weakness resolved. Dr. Mclaughlin notified and patient DC'd.
== END 2023-09-27 15:41 | disposition home or self-care (01) ==
LOC: RAD 13:27
PROVIDERS: PCP Internal Medicine; Referring Provider Physical Medicine & Rehabilitation; Visit Provider Physical Medicine & Rehabilitation
DX: M51.16 Intervertebral disc disorders with radiculopathy, lumbar region (principal); M48.061 Spinal stenosis, lumbar region without neurogenic claudication
CPT/HCPCS: 62323; J0702; J1100; J3490

== ENCOUNTER → 2023-10-05 10:06 | Outpatient (CLI) | payer MEDICARE, OTHER, SELFPAY ==
[2023-10-05 12:37] LABS: Prostate Specific Antigen < 0.064 ng/mL (0.10-4.00)
== END ==
PROVIDERS: PCP Internal Medicine; Referring Provider Urology; Visit Provider Urology
DX: C61 Malignant neoplasm of prostate (principal)
CPT/HCPCS: 36415; 84153

== ENCOUNTER → 2024-01-26 11:45 | Outpatient (CLI) | payer MEDICARE, OTHER, SELFPAY | LOC: PHYS 11:47 | PROVIDERS: Family Provider Internal Medicine; PCP Internal Medicine; Referring Provider Physical Medicine & Rehabilitation; Visit Provider Physical Medicine & Rehabilitation | DX: R20.0 Anesthesia of skin (principal); R20.2 Paresthesia of skin | CPT/HCPCS: 95885; 95886; 95911 ==